=== PATIENT | male | born 1960 | race American Indian/Alaskan Native ===

== ENCOUNTER 2022-02-28 10:56 | Inpatient (IN) | payer OTHER ==
[2022-02-28] MEDS ORDERED: INSULIN REGULAR, HUMAN 100 UNITS/1 ML IV ONE (11:30)
[2022-02-28] MEDS ORDERED: SODIUM CHLORIDE 0.9% 1000 ML 1,000 ML IV ONE ×3 (11:57→18:47)
--- NOTE | 2022-02-28 12:02 | XRay Report ---
CHEST 1 VIEW 02/28/2022 10:48 AM INDICATION / CLINICAL INFORMATION: AMS, HYPOTENSION. COMPARISON: 10/06/19 FINDINGS: SUPPORT DEVICES: None. HEART / MEDIASTINUM: No significant abnormality. LUNGS / PLEURA: No significant pulmonary or pleural abnormality. No pneumothorax. ADDITIONAL FINDINGS: No significant additional findings. IMPRESSION: 1. No acute findings. No change. Signer Name: Eddie Castellanos MD Signed: 02/28/2022 11:57 AM Workstation Name: [id number]
--- NOTE | 2022-02-28 12:02 | Emergency Department Report ---
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 Patient is altered and unable to provide history present illness therefore obtained from nurse. She states that EMS reports that home health aide found patient on the floor and altered. Accu-Chek high in route. Patient also had a BP of 80/60 and room air saturation of 74%. His home health aide at the bedside states the patient has baseline slurred speech but he was more difficult to understand today upon her arrival. Currently patient would not reliably follow commands and just answers yes to all questions. - Related Data Home Medications Medication Instructions Recorded Confirmed Last Taken Aspirin [Aspirin BABY CHEW TAB] 81 mg PO QDAY 10/06/19 10/06/19 Unknown Atorvastatin [Lipitor] 40 mg PO QDAY 10/06/19 10/06/19 Unknown Previous Rx's Medication Instructions Recorded Last Taken Type Valsartan [Diovan] 160 mg PO DAILY #30 tablet 10/08/19 Unknown Rx Insulin NPH/Regular [NovoLIN 70/30] 25 unit SUB-Q BIDDIAB 30 Days #10 10/09/19 Unknown Rx ml metFORMIN [Glucophage] 850 mg PO BIDDIAB #60 tablet 10/09/19 Unknown Rx Allergies Allergy/AdvReac Type Severity Reaction Status Date / Time No Known Allergies Allergy Verified 02/28/22 11:01 ED Review of Systems ROS: Stated complaint: ALTERED MENTAL Other details as noted in HPI Comment: Unobtainable due to pts medical conditions ED Past Medical Hx - Past Medical History Hx Hypertension: Yes Hx Diabetes: Yes Additional medical history: Hyperlipidemia - Surgical History Additional Surgical History: 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 - Social History Smoking Status: Former Smoker - Medications Home Medications: Home Medications Medication Instructions Recorded Confirmed Last Taken Type Aspirin [Aspirin BABY CHEW TAB] 81 mg PO QDAY 10/06/19 10/06/19 Unknown History Atorvastatin [Lipitor] 40 mg PO QDAY 10/06/19 10/06/19 Unknown History Valsartan [Diovan] 160 mg PO DAILY #30 tablet 10/08/19 Unknown Rx Insulin NPH/Regular [NovoLIN 70/30] 25 unit SUB-Q BIDDIAB 30 Days #10 10/09/19 Unknown Rx ml metFORMIN [Glucophage] 850 mg PO BIDDIAB #60 tablet 10/09/19 Unknown Rx ED Physical Exam - General Limitations: Altered Mental Status, Physical Limitation - Other Other exam information: General: No acute distress Head: Atraumatic Eyes: normal appearance ENT: Moist mucous membranes Neck: Normal appearance, no midline tenderness Chest: Clear to auscultation bilaterally CV: Regular rate and rhythm Abdomen: Soft, normal bowel sounds, nontender, nondistended, no rebound or guarding Back: Normal inspection Extremity: Right BKA, left AKA Neuro: Alert oriented x0, no facial asymmetry, slurred speech, equal handgrip Psych: Appropriate behavior Skin: No rash ED Course Vital Signs 02/28/22 02/28/22 02/28/22 10:58 11:10 11:13 Temperature 96.8 F L Pulse Rate 102 H 104 H Respiratory 18 34 H Rate Blood Pressure Blood Pressure 110/70 [Left] O2 Sat by Pulse 97 92 99 Oximetry 02/28/22 02/28/22 02/28/22 11:16 11:30 11:46 Temperature Pulse Rate 106 H 104 H 107 H Respiratory 33 H 31 H 32 H Rate Blood Pressure 98/61 93/62 85/65 Blood Pressure [Left] O2 Sat by Pulse 99 99 Oximetry 02/28/22 02/28/22 02/28/22 12:00 12:16 12:30 Temperature Pulse Rate 111 H 110 H 110 H Respiratory 25 H 22 37 H Rate Blood Pressure 103/82 103/82 87/58 Blood Pressure [Left] O2 Sat by Pulse Oximetry 02/28/22 02/28/22 02/28/22 12:46 13:00 13:16 Temperature Pulse Rate 105 H 107 H 105 H Respiratory 34 H 20 39 H Rate Blood Pressure 87/57 88/60 88/60 Blood Pressure [Left] O2 Sat by Pulse Oximetry 02/28/22 02/28/22 02/28/22 13:30 13:46 14:00 Temperature Pulse Rate 98 H 98 H 96 H Respiratory 35 H 15 28 H Rate Blood Pressure 137/101 106/63 137/101 Blood Pressure [Left] O2 Sat by Pulse Oximetry 02/28/22 02/28/22 02/28/22 14:25 14:38 14:46 Temperature Pulse Rate 96 H Respiratory 28 H Rate Blood Pressure 106/63 112/63 107/43 Blood Pressure [Left] O2 Sat by Pulse 95 Oximetry 02/28/22 02/28/22 02/28/22 15:00 15:16 15:24 Temperature Pulse Rate 97 H 107 H Respiratory 23 16 20 Rate Blood Pressure 107/43 125/58 Blood Pressure [Left] O2 Sat by Pulse 98 Oximetry 02/28/22 02/28/22 02/28/22 15:31 15:42 15:52 Temperature Pulse Rate 105 H Respiratory 17 Rate Blood Pressure 125/58 125/58 Blood Pressure [Left] O2 Sat by Pulse 98 Oximetry 02/28/22 02/28/22 02/28/22 16:01 16:16 16:30 Temperature Pulse Rate 105 H 103 H 101 H Respiratory 34 H 32 H 30 H Rate Blood Pressure 125/58 83/48 87/48 Blood Pressure [Left] O2 Sat by Pulse 95 Oximetry 02/28/22 16:46 Temperature Pulse Rate 100 H Respiratory 16 Rate Blood Pressure 107/56 Blood Pressure [Left] O2 Sat by Pulse 96 Oximetry - Reevaluation(s) Reevaluation #1: 02/28/22 13:54 Code stroke was initiated in CMP is still not received at this time. I Call the lab I was told that they do not have a cmp tube. I informed him that all the blood was drawn at the same time and other test orders are resulting. They will recheck the tubing system. This has called a delay in results Initially requested ABG to be performed room air sats were unable to obtain a reliable pulse oximetry. Respiratory therapist did not feel comfortable performing room air ABG due to inability to confirm oxygen saturation on room air. Results obtained on 100% FiO2 through nonrebreather and shows adequate oxygenation. Metabolic acidosis noted - Consultations Consultation #1: 02/28/22 16:23 case d/w Dr Galvan plate grainer apprentice regarding acute renal failure. He will consult during admission 02/28/22 17:[address] Farley critical care doctor. He will consult during admission. - Central Line Placement Right Femoral Consent Obtained: emergent situation Time Out Performed: Yes Patient Placed on Monitor/Pulse Ox: Yes Prep: mask, gown, gloves Central Line Prep: Chlorhexidine scrub Local Anesthesia Used: Lidocaine 1% Amount of Anesthesia Used (mls): 5 Ultrasound Used for Placement: No Central Line Lumen Inserted: triple Reason for Insertion: Emergency Venous Access Bloods Obtained for Lab: No Central Line Position: good blood return Dressing Applied: Tegaderm Patient Tolerated Procedure: well, no complications Complications: none - Lab Data Result diagrams: 02/28/22 11:54 02/28/22 15:27 Lab Results 02/28/22 02/28/22 02/28/22 Range/Units 11:54 11:54 11:54 WBC 11.4 H (4.5-11.0) K/mm3 RBC 6.23 H (3.65-5.03) M/mm3 Hgb 16.7 H (11.8-15.2) gm/dl Hct 61.3 H* (35.5-45.6) % MCV 98 H (84-94) fl MCH 27 L (28-32) pg MCHC 27 L (32-34) % RDW 18.8 H (13.2-15.2) % Plt Count 334 (140-440) K/mm3 Add Manual Diff Complete Total Counted 100 Seg Neuts % (Manual) 94.0 H (40.0-70.0) % Band Neutrophils % 2.0 % Lymphocytes % (Manual) 1.0 L (13.4-35.0) % Reactive Lymphs % (Man) 0 % Monocytes % (Manual) 3.0 (0.0-7.3) % Eosinophils % (Manual) 0 (0.0-4.3) % Basophils % (Manual) 0 (0.0-1.8) % Metamyelocytes % 0 % Myelocytes % 0 % Promyelocytes % 0 % Blast Cells % 0 % Nucleated RBC % Not Reportable Seg Neutrophils # Man 10.7 H (1.8-7.7) K/mm3 Band Neutrophils # 0.2 K/mm3 Lymphocytes # (Manual) 0.1 L (1.2-5.4) K/mm3 Abs React Lymphs (Man) 0.0 K/mm3 Monocytes # (Manual) 0.3 (0.0-0.8) K/mm3 Eosinophils # (Manual) 0.0 (0.0-0.4) K/mm3 Basophils # (Manual) 0.0 (0.0-0.1) K/mm3 Metamyelocytes # 0.0 K/mm3 Myelocytes # 0.0 K/mm3 Promyelocytes # 0.0 K/mm3 Blast Cells # 0.0 K/mm3 WBC Morphology Not Reportable Hypersegmented Neuts Not Reportable Hyposegmented Neuts Not Reportable Hypogranular Neuts Not Reportable Smudge Cells Not Reportable Toxic Granulation Not Reportable Toxic Vacuolation Not Reportable Dohle Bodies Not Reportable Pelger-Huet Anomaly Not Reportable Perla Rods Not Reportable Platelet Estimate Consistent w auto Clumped Platelets Not Reportable Plt Clumps, EDTA Not Reportable Large Platelets Few Giant Platelets Not Reportable Platelet Satelliting Not Reportable Plt Morphology Comment Not Reportable RBC Morphology Normal Dimorphic RBCs Not Reportable Polychromasia Not Reportable Hypochromasia Not Reportable Poikilocytosis Not Reportable Anisocytosis Not Reportable Microcytosis Not Reportable Macrocytosis Not Reportable Spherocytes Not Reportable Pappenheimer Bodies Not Reportable Sickle Cells Not Reportable Target Cells Not Reportable Tear Drop Cells Not Reportable Ovalocytes Not Reportable Helmet Cells Not Reportable [place] Bodies Not Reportable Pomaria Rings Not Reportable [place] Cells Not Reportable Bite Cells Not Reportable Crenated Cell Not Reportable Elliptocytes Not Reportable Acanthocytes (Spur) Not Reportable Rouleaux Not Reportable Hemoglobin C Crystals Not Reportable Schistocytes Not Reportable Malaria parasites Not Reportable Josef Bodies Not Reportable Hem Pathologist Commnt No PT (12.2-14.9) Sec. INR (0.87-1.13) APTT (24.2-36.6) Sec. ABG pH (7.350-7.450) pH Units ABG pCO2 mm Hg ABG pO2 (80.0-90.0) mm Hg ABG HCO3 (20.0-26.0) mmol/L ABG O2 Saturation (95.0-99.0) % ABG O2 Content (0.0-44) ABG Base Excess (-2.0-3.0) mmol/L ABG Hemoglobin (14.0-18.0) gm/dl ABG Carboxyhemoglobin (0.0-5.0) % ABG Methemoglobin (0.0-1.5) % VBG pH (7.320-7.420) Oxyhemoglobin (95.0-99.0) % FiO2 % Sodium (137-145) mmol/L Potassium (3.6-5.0) mmol/L Chloride (98-107) mmol/L Carbon Dioxide (22-30) mmol/L Anion Gap mmol/L BUN (9-20) mg/dL Creatinine (0.8-1.3) mg/dL Estimated GFR ml/min BUN/Creatinine Ratio % Glucose (75-100) mg/dL Lactic Acid 4.90 H* (0.7-2.0) mmol/L Calcium (8.4-10.2) mg/dL Phosphorus (2.5-4.5) mg/dL Magnesium (1.7-2.3) mg/dL Total Bilirubin (0.1-1.2) mg/dL AST (5-40) units/L ALT (7-56) units/L Alkaline Phosphatase (35-129) units/L Ammonia 66.0 H (25-60) umol/L Total Creatine Kinase (55-170) units/L Troponin T (0.00-0.029) ng/mL Total Protein (6.3-8.2) g/dL Albumin (3.9-5) g/dL Albumin/Globulin Ratio % TSH (0.270-4.200) mlU/mL Free T4 (0.76-1.46) ng/dL Urine Color (Yellow) Urine Turbidity (Clear) Specific [place] (Man) (1.003-1.030) Ur Protein (Man) (Negative) mg/dL Ur Ketones (Man) (Negative) Urine Bilirubin (Man) (Negative) Urine WBC (Auto) (0.0-6.0) /HPF Urine RBC (Auto) (0.0-6.0) /HPF U Epithel Cells (Auto) (0-13.0) /HPF Urine Bacteria (Auto) (Negative) /HPF Urine RBC (Manual) (Negative) Urine Mucus /HPF 02/28/22 02/28/22 02/28/22 Range/Units 11:54 12:18 12:50 WBC (4.5-11.0) K/mm3 RBC (3.65-5.03) M/mm3 Hgb (11.8-15.2) gm/dl Hct (35.5-45.6) % MCV (84-94) fl MCH (28-32) pg MCHC (32-34) % RDW (13.2-15.2) % Plt Count (140-440) K/mm3 Add Manual Diff Total Counted Seg Neuts % (Manual) (40.0-70.0) % Band Neutrophils % % Lymphocytes % (Manual) (13.4-35.0) % Reactive Lymphs % (Man) % Monocytes % (Manual) (0.0-7.3) % Eosinophils % (Manual) (0.0-4.3) % Basophils % (Manual) (0.0-1.8) % Metamyelocytes % % Myelocytes % % Promyelocytes % % Blast Cells % % Nucleated RBC % Seg Neutrophils # Man (1.8-7.7) K/mm3 Band Neutrophils # K/mm3 Lymphocytes # (Manual) (1.2-5.4) K/mm3 Abs React Lymphs (Man) K/mm3 Monocytes # (Manual) (0.0-0.8) K/mm3 Eosinophils # (Manual) (0.0-0.4) K/mm3 Basophils # (Manual) (0.0-0.1) K/mm3 Metamyelocytes # K/mm3 Myelocytes # K/mm3 Promyelocytes # K/mm3 Blast Cells # K/mm3 WBC Morphology Hypersegmented Neuts Hyposegmented Neuts Hypogranular Neuts Smudge Cells Toxic Granulation Toxic Vacuolation Dohle Bodies Pelger-Huet Anomaly Perla Rods Platelet Estimate Clumped Platelets Plt Clumps, EDTA Large Platelets Giant Platelets Platelet Satelliting Plt Morphology Comment RBC Morphology Dimorphic RBCs Polychromasia Hypochromasia Poikilocytosis Anisocytosis Microcytosis Macrocytosis Spherocytes Pappenheimer Bodies Sickle Cells Target Cells Tear Drop Cells Ovalocytes Helmet Cells [place] Bodies Pomaria Rings Jose Cells Bite Cells Crenated Cell Elliptocytes Acanthocytes (Spur) Rouleaux Hemoglobin C Crystals Schistocytes Malaria parasites Josef Bodies Hem Pathologist Commnt PT (12.2-14.9) Sec. INR (0.87-1.13) APTT (24.2-36.6) Sec. ABG pH 7.211 L (7.350-7.450) pH Units ABG pCO2 30.8 mm Hg ABG pO2 267.8 H (80.0-90.0) mm Hg ABG HCO3 12.1 L (20.0-26.0) mmol/L ABG O2 Saturation 99.4 H (95.0-99.0) % ABG O2 Content 22.8 (0.0-44) ABG Base Excess -14.3 L (-2.0-3.0) mmol/L ABG Hemoglobin 16.2 (14.0-18.0) gm/dl ABG Carboxyhemoglobin 1.4 (0.0-5.0) % ABG Methemoglobin 0.7 (0.0-1.5) % VBG pH 7.116 L* (7.320-7.420) Oxyhemoglobin 97.4 (95.0-99.0) % FiO2 100 % Sodium (137-145) mmol/L Potassium (3.6-5.0) mmol/L Chloride (98-107) mmol/L Carbon Dioxide (22-30) mmol/L Anion Gap mmol/L BUN (9-20) mg/dL Creatinine (0.8-1.3) mg/dL Estimated GFR ml/min BUN/Creatinine Ratio % Glucose (75-100) mg/dL Lactic Acid 5.50 H* (0.7-2.0) mmol/L Calcium (8.4-10.2) mg/dL Phosphorus (2.5-4.5) mg/dL Magnesium (1.7-2.3) mg/dL Total Bilirubin (0.1-1.2) mg/dL AST (5-40) units/L ALT (7-56) units/L Alkaline Phosphatase (35-129) units/L Ammonia (25-60) umol/L Total Creatine Kinase (55-170) units/L Troponin T (0.00-0.029) ng/mL Total Protein (6.3-8.2) g/dL Albumin (3.9-5) g/dL Albumin/Globulin Ratio % TSH (0.270-4.200) mlU/mL Free T4 (0.76-1.46) ng/dL Urine Color (Yellow) Urine Turbidity (Clear) Specific [place] (Man) (1.003-1.030) Ur Protein (Man) (Negative) mg/dL Ur Ketones (Man) (Negative) Urine Bilirubin (Man) (Negative) Urine WBC (Auto) (0.0-6.0) /HPF Urine RBC (Auto) (0.0-6.0) /HPF U Epithel Cells (Auto) (0-13.0) /HPF Urine Bacteria (Auto) (Negative) /HPF Urine RBC (Manual) (Negative) Urine Mucus /HPF 02/28/22 02/28/22 02/28/22 Range/Units 13:00 14:53 14:53 WBC (4.5-11.0) K/mm3 RBC (3.65-5.03) M/mm3 Hgb (11.8-15.2) gm/dl Hct (35.5-45.6) % MCV (84-94) fl MCH (28-32) pg MCHC (32-34) % RDW (13.2-15.2) % Plt Count (140-440) K/mm3 Add Manual Diff Total Counted Seg Neuts % (Manual) (40.0-70.0) % Band Neutrophils % % Lymphocytes % (Manual) (13.4-35.0) % Reactive Lymphs % (Man) % Monocytes % (Manual) (0.0-7.3) % Eosinophils % (Manual) (0.0-4.3) % Basophils % (Manual) (0.0-1.8) % Metamyelocytes % % Myelocytes % % Promyelocytes % % Blast Cells % % Nucleated RBC % Seg Neutrophils # Man (1.8-7.7) K/mm3 Band Neutrophils # K/mm3 Lymphocytes # (Manual) (1.2-5.4) K/mm3 Abs React Lymphs (Man) K/mm3 Monocytes # (Manual) (0.0-0.8) K/mm3 Eosinophils # (Manual) (0.0-0.4) K/mm3 Basophils # (Manual) (0.0-0.1) K/mm3 Metamyelocytes # K/mm3 Myelocytes # K/mm3 Promyelocytes # K/mm3 Blast Cells # K/mm3 WBC Morphology Hypersegmented Neuts Hyposegmented Neuts Hypogranular Neuts Smudge Cells Toxic Granulation Toxic Vacuolation Dohle Bodies Pelger-Huet Anomaly Perla Rods Platelet Estimate Clumped Platelets Plt Clumps, EDTA Large Platelets Giant Platelets Platelet Satelliting Plt Morphology Comment RBC Morphology Dimorphic RBCs Polychromasia Hypochromasia Poikilocytosis Anisocytosis Microcytosis Macrocytosis Spherocytes Pappenheimer Bodies Sickle Cells Target Cells Tear Drop Cells Ovalocytes Helmet Cells [place] Bodies Pomaria Rings Jose Cells Bite Cells Crenated Cell Elliptocytes Acanthocytes (Spur) Rouleaux Hemoglobin C Crystals Schistocytes Malaria parasites Josef Bodies Hem Pathologist Commnt PT 15.9 H (12.2-14.9) Sec. INR 1.14 H (0.87-1.13) APTT 24.7 (24.2-36.6) Sec. ABG pH (7.350-7.450) pH Units ABG pCO2 mm Hg ABG pO2 (80.0-90.0) mm Hg ABG HCO3 (20.0-26.0) mmol/L ABG O2 Saturation (95.0-99.0) % ABG O2 Content (0.0-44) ABG Base Excess (-2.0-3.0) mmol/L ABG Hemoglobin (14.0-18.0) gm/dl ABG Carboxyhemoglobin (0.0-5.0) % ABG Methemoglobin (0.0-1.5) % VBG pH (7.320-7.420) Oxyhemoglobin (95.0-99.0) % FiO2 % Sodium (137-145) mmol/L Potassium (3.6-5.0) mmol/L Chloride (98-107) mmol/L Carbon Dioxide (22-30) mmol/L Anion Gap mmol/L BUN (9-20) mg/dL Creatinine (0.8-1.3) mg/dL Estimated GFR ml/min BUN/Creatinine Ratio % Glucose (75-100) mg/dL Lactic Acid 3.60 H* (0.7-2.0) mmol/L Calcium (8.4-10.2) mg/dL Phosphorus (2.5-4.5) mg/dL Magnesium (1.7-2.3) mg/dL Total Bilirubin (0.1-1.2) mg/dL AST (5-40) units/L ALT (7-56) units/L Alkaline Phosphatase (35-129) units/L Ammonia (25-60) umol/L Total Creatine Kinase (55-170) units/L Troponin T (0.00-0.029) ng/mL Total Protein (6.3-8.2) g/dL Albumin (3.9-5) g/dL Albumin/Globulin Ratio % TSH 1.170 (0.270-4.200) mlU/mL Free T4 1.32 (0.76-1.46) ng/dL Urine Color (Yellow) Urine Turbidity (Clear) Specific [place] (Man) (1.003-1.030) Ur Protein (Man) (Negative) mg/dL Ur Ketones (Man) (Negative) Urine Bilirubin (Man) (Negative) Urine WBC (Auto) (0.0-6.0) /HPF Urine RBC (Auto) (0.0-6.0) /HPF U Epithel Cells (Auto) (0-13.0) /HPF Urine Bacteria (Auto) (Negative) /HPF Urine RBC (Manual) (Negative) Urine Mucus /HPF 02/28/22 02/28/22 02/28/22 Range/Units 15:27 15:27 Unknown WBC (4.5-11.0) K/mm3 RBC (3.65-5.03) M/mm3 Hgb (11.8-15.2) gm/dl Hct (35.5-45.6) % MCV (84-94) fl MCH (28-32) pg MCHC (32-34) % RDW (13.2-15.2) % Plt Count (140-440) K/mm3 Add Manual Diff Total Counted Seg Neuts % (Manual) (40.0-70.0) % Band Neutrophils % % Lymphocytes % (Manual) (13.4-35.0) % Reactive Lymphs % (Man) % Monocytes % (Manual) (0.0-7.3) % Eosinophils % (Manual) (0.0-4.3) % Basophils % (Manual) (0.0-1.8) % Metamyelocytes % % Myelocytes % % Promyelocytes % % Blast Cells % % Nucleated RBC % Seg Neutrophils # Man (1.8-7.7) K/mm3 Band Neutrophils # K/mm3 Lymphocytes # (Manual) (1.2-5.4) K/mm3 Abs React Lymphs (Man) K/mm3 Monocytes # (Manual) (0.0-0.8) K/mm3 Eosinophils # (Manual) (0.0-0.4) K/mm3 Basophils # (Manual) (0.0-0.1) K/mm3 Metamyelocytes # K/mm3 Myelocytes # K/mm3 Promyelocytes # K/mm3 Blast Cells # K/mm3 WBC Morphology Hypersegmented Neuts Hyposegmented Neuts Hypogranular Neuts Smudge Cells Toxic Granulation Toxic Vacuolation Dohle Bodies Pelger-Huet Anomaly Perla Rods Platelet Estimate Clumped Platelets Plt Clumps, EDTA Large Platelets Giant Platelets Platelet Satelliting Plt Morphology Comment RBC Morphology Dimorphic RBCs Polychromasia Hypochromasia Poikilocytosis Anisocytosis Microcytosis Macrocytosis Spherocytes Pappenheimer Bodies Sickle Cells Target Cells Tear Drop Cells Ovalocytes Helmet Cells [place] Bodies Pomaria Rings Jose Cells Bite Cells Crenated Cell Elliptocytes Acanthocytes (Spur) Rouleaux Hemoglobin C Crystals Schistocytes Malaria parasites Josef Bodies Hem Pathologist Commnt PT (12.2-14.9) Sec. INR (0.87-1.13) APTT (24.2-36.6) Sec. ABG pH (7.350-7.450) pH Units ABG pCO2 mm Hg ABG pO2 (80.0-90.0) mm Hg ABG HCO3 (20.0-26.0) mmol/L ABG O2 Saturation (95.0-99.0) % ABG O2 Content (0.0-44) ABG Base Excess (-2.0-3.0) mmol/L ABG Hemoglobin (14.0-18.0) gm/dl ABG Carboxyhemoglobin (0.0-5.0) % ABG Methemoglobin (0.0-1.5) % VBG pH (7.320-7.420) Oxyhemoglobin (95.0-99.0) % FiO2 % Sodium 151 H (137-145) mmol/L Potassium 4.1 (3.6-5.0) mmol/L Chloride 101.9 (98-107) mmol/L Carbon Dioxide 15 L (22-30) mmol/L Anion Gap 38 mmol/L BUN 82 H (9-20) mg/dL Creatinine 5.3 H (0.8-1.3) mg/dL Estimated GFR 13 ml/min BUN/Creatinine Ratio 15 % Glucose 1447 H* (75-100) mg/dL Lactic Acid (0.7-2.0) mmol/L Calcium 9.7 (8.4-10.2) mg/dL Phosphorus 4.50 (2.5-4.5) mg/dL Magnesium 3.80 H (1.7-2.3) mg/dL Total Bilirubin 0.20 (0.1-1.2) mg/dL AST 47 H (5-40) units/L ALT 22 (7-56) units/L Alkaline Phosphatase 173 H (35-129) units/L Ammonia (25-60) umol/L Total Creatine Kinase 4409 H (55-170) units/L Troponin T 0.014 (0.00-0.029) ng/mL Total Protein 6.3 (6.3-8.2) g/dL Albumin 3.8 L (3.9-5) g/dL Albumin/Globulin Ratio 1.5 % TSH (0.270-4.200) mlU/mL Free T4 (0.76-1.46) ng/dL Urine Color Straw (Yellow) Urine Turbidity Slightly cloudy (Clear) Specific [place] (Man) 1.010 (1.003-1.030) Ur Protein (Man) 2+ (Negative) mg/dL Ur Ketones (Man) 5 (Negative) Urine Bilirubin (Man) Negative (Negative) Urine WBC (Auto) 9.0 H (0.0-6.0) /HPF Urine RBC (Auto) 2.0 (0.0-6.0) /HPF U Epithel Cells (Auto) 12.0 (0-13.0) /HPF Urine Bacteria (Auto) 1+ (Negative) /HPF Urine RBC (Manual) 3+ (Negative) Urine Mucus Few /HPF - EKG Data -: EKG Interpreted by Ut EKG shows normal: sinus rhythm, ST-T waves (No STEMI) Rate: tachycardia (104) - Radiology Data Radiology results: report reviewed CHEST 1 VIEW 02/28/2022 10:48 AM INDICATION / CLINICAL INFORMATION: AMS, HYPOTENSION. COMPARISON: 10/06/19 FINDINGS: SUPPORT DEVICES: None. HEART / MEDIASTINUM: No significant abnormality. LUNGS / PLEURA: No significant pulmonary or pleural abnormality. No pneumothorax. ADDITIONAL FINDINGS: No significant additional findings. IMPRESSION: 1. No acute findings. No change. CT cervical spine wo con, CT head/brain wo con INDICATION / CLINICAL INFORMATION: 61 years Male; AMS, FOUND DOWN ON GROUND. TECHNIQUE: Routine CT head without contrast. All CT scans at this location are performed using CT dose reduction for ALARA by means of automated exposure control. COMPARISON: None. FINDINGS: BRAIN / INTRACRANIAL CONTENTS: No acute hemorrhage, mass effect, midline shift, hydrocephalus, or acute, large territorial infarct. Mild cerebral and cerebellar atrophy. There are moderate areas of decreased attenuation in the white matter of the cerebral hemispheres. These are nonspecific findings and may be related to microangiopathy (hypertension, diabetes, atherosclerosis), given the patient's age. It might be difficult to evaluate for small areas of ischemia without diffusion imaging by MRI. 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 Subcentimeter chronic lacunar infarcts are also noted in the right anterior basal ganglia and left carroll. CRANIOCERVICAL JUNCTION: No significant abnormality. ORBITS: No significant abnormality of visualized orbits. SINUSES / MASTOIDS: Visualized paranasal sinuses and mastoid air cells are essentially clear. ADDITIONAL FINDINGS: Atherosclerotic disease is seen in the anterior and posterior circulation. IMPRESSION: 1. No acute intracranial process identified. Chronic findings as described above. CT CERVICAL SPINE WITHOUT CONTRAST INDICATION: AMS, FOUND DOWN ON GROUND. TECHNIQUE: Axial imaging performed through the cervical spine without the use of contrast. Sagittal and coronal reconstructed images were also reviewed. All CT scans at this location are performed using CT dose reduction for ALARA by means of automated exposure control. COMPARISON: None FINDINGS: Alignment: Spinal alignment is normal. Bones: There is no acute osseous abnormality. 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 C5-6 and C6-7 are the most affected levels. No significant facet arthropathy. No bone lesion. Soft tissues: No acute or significant incidental soft tissue abnormality. IMPRESSION: No acute abnormality. Mild to moderate cervical spondylosis as described. - Medical Decision Making 61-year-old male with past medical history of diabetes presents to the hospital with hyperglycemia alteration in mental status. There was significant delay in obtaining CMP results with ABG revealed significant hyperglycemia with anion gap acidosis. Patient treated for DKA and sepsis protocol. IV Rocephin provided for UTI. Lactic acidosis improving with hydration. Patient has very difficult IV access despite multiple attempts which also contributed to blood draw delays. Central line placed due to intermittent hypotension and need for multiple lines for ministration of meds. Patient remained responsive but confused during ED stay. Hospitalist to admit. Case discussed with nephrology regarding acute renal sufficiency likely secondary to renal sufficiency and rhabdomyolysis. Imaging test including CT head, cervical spine, and x-ray chest did not show acute findings. Case discussed with critical care doctor since patient requires ICU admission. Critical Care Time: Yes Critical care time in (mins) excluding proc time.: 75 Critical care attestation.: If time is entered above; I have spent that time in minutes in the direct care of this critically ill patient, excluding procedure time. Critical Care Time: 75 Minutes of critical care time excluding procedures were used in the care of the patient. I came immediately to the bedside upon patient's arrival. I obtained history from EMS at the bedside. I discussed treatment plan with the nursing team members. I reviewed electronic record. I spoke with home health aid at bedside . Patient required multiple interventions and reassessments. Spoke with hospitalist and consultants for collaborative care ED Disposition Clinical Impression: DKA (diabetic ketoacidosis), Acute renal failure (ARF), Altered mental status, Dehydration, UTI (urinary tract infection), Rhabdomyolysis, Sepsis Disposition: ADMITTED INPATIENT Is pt being admited?: Yes Condition: Stable Instructions: Diabetic Ketoacidosis (ED) Time of Disposition: 17:07
[2022-02-28 12:32] LABS: Hemoglobin 16.7 gm/dl (11.8-15.2); Red Blood Count 6.23 M/mm3 (3.65-5.03)
[2022-02-28 12:33] LABS: Hematocrit 61.3 % (35.5-45.6); Mean Corpuscular HGB Conc 27 % (32-34); Mean Corpuscular Volume 98 fl (84-94); Platelet Count 334 K/mm3 (140-440); Red Cell Distribution Width 18.8 % (13.2-15.2)
[2022-02-28] MEDS ORDERED: SODIUM CHLORIDE 0.9% 1000 ML IV SOLN IV ONE (12:42)
[2022-02-28 12:48] LABS: ABG Base Excess -14.3 mmol/L (-2.0-3.0); ABG HCO3 12.1 mmol/L (20.0-26.0); ABG Methemoglobin 0.7 % (0.0-1.5); ABG Oxygen Saturation 99.4 % (95.0-99.0); ABG PCO2 30.8 mm Hg; ABG PH 7.211 pH Units (7.350-7.450)
[2022-02-28 13:10] LABS: Band Neutrophils # (Manual) 0.2 K/mm3; Basophils % (Manual) 0 % (0.0-1.8); Eosinophils % (Manual) 0 % (0.0-4.3); Large Platelets Few; Platelet Estimate Consistent w Auto; RBC Morphology Normal; Total Cells Counted 100
[2022-02-28 13:19] LABS: ABG PO2 267.8 mm Hg (80.0-90.0)
[2022-02-28 13:34] LABS: INR 1.14 (0.87-1.13)
[2022-02-28 13:35] LABS: Partial Thromboplastin Time 24.7 Sec. (24.2-36.6)
[2022-02-28 14:32] LABS: Bacteria,Urine 1+ /HPF (Negative); Mucus,Urine FEW /HPF
[2022-02-28 14:37] LABS: Color,Urine Straw (Yellow)
--- NOTE | 2022-02-28 14:48 | Cat Scan Report ---
CT cervical spine wo con, CT head/brain wo con INDICATION / CLINICAL INFORMATION: 61 years Male; AMS, FOUND DOWN ON GROUND. TECHNIQUE: Routine CT head without contrast. All CT scans at this location are performed using CT dos e reduction for ALARA by means of automated exposure control. COMPARISON: None. FINDINGS: BRAIN / INTRACRANIAL CONTENTS: No acute hemorrhage, mass effect, midline shift, hydrocephalus, or acu te, large territorial infarct. Mild cerebral and cerebellar atrophy. There are moderate areas of decreased attenuation in the white matter of the cerebral hemispheres. Th chandan are nonspecific findings and may be related to microangiopathy (hypertension, diabetes, atheroscl erosis), given the patient's age. It might be difficult to evaluate for small areas of ischemia witho ut diffusion imaging by MRI. 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 Subcentimeter chronic lacunar infarcts are also noted in the right anterior basal ganglia and left carroll. CRANIOCERVICAL JUNCTION: No significant abnormality. ORBITS: No significant abnormality of visualized orbits. SINUSES / MASTOIDS: Visualized paranasal sinuses and mastoid air cells are essentially clear. ADDITIONAL FINDINGS: Atherosclerotic disease is seen in the anterior and posterior circulation. IMPRESSION: 1. No acute intracranial process identified. Chronic findings as described above. CT CERVICAL SPINE WITHOUT CONTRAST INDICATION: AMS, FOUND DOWN ON GROUND. TECHNIQUE: Axial imaging performed through the cervical spine without the use of contrast. Sagittal and coronal reconstructed images were also reviewed. All CT scans at this location are performed us ing CT dose reduction for ALARA by means of automated exposure control. COMPARISON: None FINDINGS: Alignment: Spinal alignment is normal. Bones: There is no acute osseous abnormality. 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 C5-6 and C6-7 are the most affected levels. No significant facet arthropathy. No bone lesion. Soft tissues: No acute or significant incidental soft tissue abnormality. IMPRESSION: No acute abnormality. Mild to moderate cervical spondylosis as described. Signer Name: Carlos Vivar Jr, MD Signed: 02/28/2022 2:44 PM Workstation Name: [id number]
[2022-02-28] MEDS ORDERED: cefTRIAXone/NS 1 GM/50 ML 1 GM/50 ML BAG IV ONE (15:21)
[2022-02-28 15:31] LABS: Free T4 (Free Thyroxine) 1.32 ng/dL (0.76-1.46)
[2022-02-28 16:01] LABS: Albumin 3.8 g/dL (3.9-5); Calcium 9.7 mg/dL (8.4-10.2)
[2022-02-28] MEDS: INSULIN REGULAR, HUMAN 100 UNITS in SODIUM CHLORIDE 0.9% 99 ML IV SCH (16:56)
[2022-02-28] MEDS ORDERED: IBUPROFEN 600 MG TAB PO PRN (17:08)
[2022-02-28] MEDS ORDERED: MORPHINE 2 MG/1 ML INJ IV PRN (17:08)
[2022-02-28 18:44] LABS: Calcium 9.4 mg/dL (8.4-10.2)
[2022-02-28] MEDS ORDERED: ONDANSETRON 4 MG/2 ML INJ IV PRN (21:22)
[2022-02-28] MEDS ORDERED: oxyCODONE /ACETAMINOPHEN 5-325MG TAB PO PRN (21:22)
[2022-02-28] MEDS ORDERED: METOCLOPRAMIDE 10 MG/2 ML INJ IV PRN (21:22)
[2022-02-28] MEDS ORDERED: NON-FORMULARY EACH (Losartan [Cozaar] 100 MG Tablet) PO SCH (21:30)
[2022-02-28] MEDS ORDERED: D5W/0.9% NACL 1,000 ML IV SCH (22:00)
[2022-02-28] MEDS: FAMOTIDINE 20 MG/2 ML INJ IV SCH (23:40)
[2022-02-28] MEDS: VALSARTAN 160MG TAB PO SCH (23:40)
[2022-02-28] MEDS: amLODIPine 5 MG TAB PO SCH (23:40)
[2022-02-28 23:43] LABS: Calcium 8.9 mg/dL (8.4-10.2)
[2022-02-28] MEDS ORDERED: NACL 0.45%/KCL 20 MEQ 20 MEQ/1,000 ML BAG IV SCH (23:45)
[2022-02-28] MEDS ORDERED: D5W/0.45% NACL/KCL 20 MEQ 20 MEQ/1,000 ML BAG IV SCH (23:45)
[2022-03-01 03:29] LABS: Hematocrit 47.1 % (35.5-45.6); Hemoglobin 14.8 gm/dl (11.8-15.2); Mean Corpuscular HGB Conc 32 % (32-34); Mean Corpuscular Volume 84 fl (84-94); Platelet Count 231 K/mm3 (140-440); Red Blood Count 5.58 M/mm3 (3.65-5.03); Red Cell Distribution Width 17.7 % (13.2-15.2)
[2022-03-01 03:41] LABS: Calcium 8.3 mg/dL (8.4-10.2)
[2022-03-01] MEDS ORDERED: POTASSIUM CHLORIDE 20 MEQ in DEXTROSE 5% IN WATER 1,000 ML IV SCH (04:15)
[2022-03-01] MEDS: D5W/0.45% NACL/KCL 20 MEQ 20 MEQ/1,000 ML BAG IV SCH ×2 (05:27→14:00)
[2022-03-01] MEDS: INSULIN REGULAR, HUMAN 100 UNITS in SODIUM CHLORIDE 0.9% 99 ML IV SCH (05:27)
--- NOTE | 2022-03-01 05:45 | History and Physical Report ---
History of Present Illness Date of examination: 02/28/22 Date of admission: 02/28/22 17:08 Chief complaint: Altered sensorium since a.m. History of present illness: 61-year-old -[place] male with history of Beatties, hypertension, hyperlipidemia and s/p bilateral BKA brought in by EMS for altered mental status. At the time of arrival his blood pressure was 80/60 and oxygen saturation was 74%. As per his home health aide at bedside--patient had baseline slurred speech but was more difficult to understand today. Would not follow commands. Severely altered sensorium. His baseline is alert and oriented. No fever or chills. No vomiting. 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 - Social History --Smoking Status: Former Smoker - Family history --Htn - Medications --Home Medications: Home Medications Medication Instructions Recorded Confirmed Last Taken Type Aspirin [Aspirin BABY CHEW TAB] 81 mg PO QDAY 10/06/19 10/06/19 Unknown History Atorvastatin [Lipitor] 40 mg PO QDAY 10/06/19 10/06/19 Unknown History Valsartan [Diovan] 160 mg PO DAILY #30 tablet 10/08/19 Unknown Rx Insulin NPH/Regular [NovoLIN 70/30] 25 unit SUB-Q BIDDIAB 30 Days #10 10/09/19 Unknown Rx ml metFORMIN [Glucophage] 850 mg PO BIDDIAB #60 tablet 10/09/19 Unknown Rx Review of Systems ROS: Constitutional altered sensorium HEENT no sore throat no post nasal drip no diplopia Neck no neck stiffness no lymph gland enlargement Chest and lungs no shortness of breath cough or wheezing CVS no chest pain no diaphoresis no palpitations GI no nausea no vomiting no diarrhea Genitourinary system no dysuria no flank pain Musculoskeletal system no muscle pains no joint pains [employer] altered sensorium Skin no rash no itching Psychiatric no depression no homicidal or suicidal tendencies Hematologic no lymphedema or bruising Endocrine no polydipsia no polyuria no cold intolerance no heat intolerance Medications and Allergies Allergies Allergy/AdvReac Type Severity Reaction Status Date / Time No Known Allergies Allergy Verified 02/28/22 11:01 Home Medications Medication Instructions Recorded Confirmed Last Taken Type Aspirin [Aspirin BABY CHEW TAB] 81 mg PO QDAY 10/06/19 02/28/22 Unknown History Atorvastatin [Lipitor] 40 mg PO QDAY 10/06/19 02/28/22 Unknown History Valsartan [Diovan] 160 mg PO DAILY #30 tablet 10/08/19 02/28/22 Unknown Rx metFORMIN [Glucophage] 850 mg PO BIDDIAB #60 tablet 10/09/19 02/28/22 Unknown Rx Insulin NPH Hum/Reg Insulin Hm 28 units SQ ACHS 02/28/22 02/28/22 Unknown Histor y Insulin NPH/Regular [NovoLIN 70/30] 25 unit SUB-Q QHS 02/28/22 02/28/22 Unknown History Losartan [Cozaar] 100 mg PO QDAY 02/28/22 02/28/22 Unknown History Mirtazapine [Remeron] 15 mg PO DAILY 02/28/22 02/28/22 Unknown History Trazodone HCl [traZODone] 300 mg PO QHS 02/28/22 02/28/22 Unknown History amLODIPine [Norvasc] 2.5 mg PO DAILY 02/28/22 02/28/22 Unknown History busPIRone [Buspar] 10 mg PO DAILY 02/28/22 02/28/22 Unknown History Active Meds: Active Medications Acetaminophen (Acetaminophen 325 Mg Tab) 650 mg PO Q4H PRN PRN Reason: Pain MILD(1-3)/Fever >100.5/SHIN Amlodipine Besylate (Amlodipine 5 Mg Tab) 2.5 mg PO DAILY JOB Last Admin: 02/28/22 23:40 Dose: Not Given Dextrose (Dextrose 50% In Water (25gm) 50 Ml Syringe) 0 ml IV Q30MIN PRN; Protocol PRN Reason: Hypoglycemia Famotidine (Famotidine 20 Mg/2 Ml Inj) 20 mg IV QAM JOB Last Admin: 02/28/22 23:40 Dose: Not Given Insulin Human Regular 100 (units/ Sodium Chloride) 100 mls @ 1 mls/hr IV TITR JOB; Protocol Last Admin: 03/01/22 05:27 Dose: 4 units/hr, 4 mls/hr Potassium Chloride/Dextrose/Sod Cl (D5w/0.45% Nacl/Kcl 20 Meq) 20 meq in 1,000 mls @ 125 mls/hr IV DIRECT JOB Last Admin: 03/01/22 05:27 Dose: 125 mls/hr Ibuprofen (Ibuprofen 600 Mg Tab) 600 mg PO Q6H PRN PRN Reason: Pain, Mild (1-3) Metoclopramide HCl (Metoclopramide 10 Mg/2 Ml Inj) 5 mg IV Q6H PRN PRN Reason: Nausea And Vomiting Mirtazapine (Mirtazapine 15 Mg Tab) 15 mg PO DAILY [facility] Morphine Sulfate (Morphine 2 Mg/1 Ml Inj) 2 mg IV Q4H PRN PRN Reason: Pain, Moderate (4-6) Ondansetron HCl (Ondansetron 4 Mg/2 Ml Inj) 4 mg IV Q3H PRN PRN Reason: Nausea And Vomiting Oxycodone/Acetaminophen (Oxycodone /Acetaminophen 5-325mg Tab) 1 tab PO Q6H PRN PRN Reason: Pain, Moderate (4-6) Sodium Chloride (Sodium Chloride 0.9% 10 Ml Flush Syringe) 10 ml IV PRN PRN PRN Reason: LINE FLUSH Sodium Chloride (Sodium Chloride 0.9% 10 Ml Flush Syringe) 10 ml IV BID [facility] Last Admin: 03/01/22 05:28 Dose: Not Given Valsartan (Valsartan 160mg Tab) 160 mg PO DAILY [facility] Last Admin: 02/28/22 23:40 Dose: Not Given Exam - Constitutional Vitals: Temp Pulse Resp BP Pulse Ox 96.8 F L 104 H 34 H 92/64 96 02/28/22 10:58 03/01/22 02:20 03/01/22 02:20 03/01/22 02:20 03/01/22 02:20 General appearance: Present: mild distress, cachectic, disheveled - EENT Eyes: Present: PERRL ENT: hearing intact, clear oral mucosa - Neck Neck: Present: supple, normal ROM - Respiratory Respiratory effort: normal Respiratory: bilateral: CTA - Cardiovascular Heart rate: 98 Rhythm: regular Heart Sounds: Present: S1 & S2. Absent: rub, click - Extremities Extremities: pulses symmetrical, No edema, abnormal (Gerson BKA) Extremity abnormal: other (Gerson BKA) Peripheral Pulses: within normal limits - Abdominal General gastrointestinal: Present: soft, non-tender, non-distended, normal bowel sounds Male genitourinary: Present: normal - Integumentary Integumentary: Present: clear, warm, dry - Musculoskeletal Musculoskeletal: gait normal, strength equal bilaterally - Psychiatric Psychiatric: appropriate mood/affect, intact judgment & insight - Neurologic Neurologic: CNII-XII intact, moves all extremities - Allied Health Allied health notes reviewed: nursing, case management HEART Score - HEART Score Troponin: Troponin T 0.014 ng/mL (0.00-0.029) 02/28/22 15:27 Results - Labs CBC & Chem 7: 03/01/22 03:13 03/01/22 03:13 Labs: Laboratory Last Values WBC 12.6 K/mm3 (4.5-11.0) H 03/01/22 03:13 RBC 5.58 M/mm3 (3.65-5.03) H 03/01/22 03:13 Hgb 14.8 gm/dl (11.8-15.2) 03/01/22 03:13 Hct 47.1 % (35.5-45.6) H D 03/01/22 03:13 MCV 84 fl (84-94) 03/01/22 03:13 MCH 27 pg (28-32) L 03/01/22 03:13 MCHC 32 % (32-34) 03/01/22 03:13 RDW 17.7 % (13.2-15.2) H 03/01/22 03:13 Plt Count 231 K/mm3 (140-440) 03/01/22 03:13 Add Manual Diff Complete 02/28/22 11:54 Total Counted 100 02/28/22 11:54 Seg Neuts % (Manual) 94.0 % (40.0-70.0) H 02/28/22 11:54 Band Neutrophils % 2.0 % 02/28/22 11:54 Lymphocytes % (Manual) 1.0 % (13.4-35.0) L 02/28/22 11:54 Reactive Lymphs % (Man) 0 % 02/28/22 11:54 Monocytes % (Manual) 3.0 % (0.0-7.3) 02/28/22 11:54 Eosinophils % (Manual) 0 % (0.0-4.3) 02/28/22 11:54 Basophils % (Manual) 0 % (0.0-1.8) 02/28/22 11:54 Metamyelocytes % 0 % 02/28/22 11:54 Myelocytes % 0 % 02/28/22 11:54 Promyelocytes % 0 % 02/28/22 11:54 Blast Cells % 0 % 02/28/22 11:54 Nucleated RBC % Not Reportable 02/28/22 11:54 Seg Neutrophils # Man 10.7 K/mm3 (1.8-7.7) H 02/28/22 11:54 Band Neutrophils # 0.2 K/mm3 02/28/22 11:54 Lymphocytes # (Manual) 0.1 K/mm3 (1.2-5.4) L 02/28/22 11:54 Abs React Lymphs (Man) 0.0 K/mm3 02/28/22 11:54 Monocytes # (Manual) 0.3 K/mm3 (0.0-0.8) 02/28/22 11:54 Eosinophils # (Manual) 0.0 K/mm3 (0.0-0.4) 02/28/22 11:54 Basophils # (Manual) 0.0 K/mm3 (0.0-0.1) 02/28/22 11:54 Metamyelocytes # 0.0 K/mm3 02/28/22 11:54 Myelocytes # 0.0 K/mm3 02/28/22 11:54 Promyelocytes # 0.0 K/mm3 02/28/22 11:54 Blast Cells # 0.0 K/mm3 02/28/22 11:54 WBC Morphology Not Reportable 02/28/22 11:54 Hypersegmented Neuts Not Reportable 02/28/22 11:54 Hyposegmented Neuts Not Reportable 02/28/22 11:54 Hypogranular Neuts Not Reportable 02/28/22 11:54 Smudge Cells Not Reportable 02/28/22 11:54 Toxic Granulation Not Reportable 02/28/22 11:54 Toxic Vacuolation Not Reportable 02/28/22 11:54 Dohle Bodies Not Reportable 02/28/22 11:54 Pelger-Huet Anomaly Not Reportable 02/28/22 11:54 Perla Rods Not Reportable 02/28/22 11:54 Platelet Estimate Consistent w auto 02/28/22 11:54 Clumped Platelets Not Reportable 02/28/22 11:54 Plt Clumps, EDTA Not Reportable 02/28/22 11:54 Large Platelets Few 02/28/22 11:54 Giant Platelets Not Reportable 02/28/22 11:54 Platelet Satelliting Not Reportable 02/28/22 11:54 Plt Morphology Comment Not Reportable 02/28/22 11:54 RBC Morphology Normal 02/28/22 11:54 Dimorphic RBCs Not Reportable 02/28/22 11:54 Polychromasia Not Reportable 02/28/22 11:54 Hypochromasia Not Reportable 02/28/22 11:54 Poikilocytosis Not Reportable 02/28/22 11:54 Anisocytosis Not Reportable 02/28/22 11:54 Microcytosis Not Reportable 02/28/22 11:54 Macrocytosis Not Reportable 02/28/22 11:54 Spherocytes Not Reportable 02/28/22 11:54 Pappenheimer Bodies Not Reportable 02/28/22 11:54 Sickle Cells Not Reportable 02/28/22 11:54 Target Cells Not Reportable 02/28/22 11:54 Tear Drop Cells Not Reportable 02/28/22 11:54 Ovalocytes Not Reportable 02/28/22 11:54 Helmet Cells Not Reportable 02/28/22 11:54 [place] Bodies Not Reportable 02/28/22 11:54 [place] Rings Not Reportable 02/28/22 11:54 Jose Cells Not Reportable 02/28/22 11:54 Bite Cells Not Reportable 02/28/22 11:54 Crenated Cell Not Reportable 02/28/22 11:54 Elliptocytes Not Reportable 02/28/22 11:54 Acanthocytes (Spur) Not Reportable 02/28/22 11:54 Rouleaux Not Reportable 02/28/22 11:54 Hemoglobin C Crystals Not Reportable 02/28/22 11:54 Schistocytes Not Reportable 02/28/22 11:54 Malaria parasites Not Reportable 02/28/22 11:54 Josef Bodies Not Reportable 02/28/22 11:54 Hem Pathologist Commnt No 02/28/22 11:54 PT 15.9 Sec. (12.2-14.9) H 02/28/22 13:00 INR 1.14 (0.87-1.13) H 02/28/22 13:00 APTT 24.7 Sec. (24.2-36.6) 02/28/22 13:00 ABG pH 7.211 pH Units (7.350-7.450) L 02/28/22 12:18 ABG pCO2 30.8 mm Hg 02/28/22 12:18 ABG pO2 267.8 mm Hg (80.0-90.0) H 02/28/22 12:18 ABG HCO3 12.1 mmol/L (20.0-26.0) L 02/28/22 12:18 ABG O2 Saturation 99.4 % (95.0-99.0) H 02/28/22 12:18 ABG O2 Content 22.8 (0.0-44) 02/28/22 12:18 ABG Base Excess -14.3 mmol/L (-2.0-3.0) L 02/28/22 12:18 ABG Hemoglobin 16.2 gm/dl (14.0-18.0) 02/28/22 12:18 ABG Carboxyhemoglobin 1.4 % (0.0-5.0) 02/28/22 12:18 ABG Methemoglobin 0.7 % (0.0-1.5) 02/28/22 12:18 VBG pH 7.116 (7.320-7.420) L* 02/28/22 11:54 Oxyhemoglobin 97.4 % (95.0-99.0) 02/28/22 12:18 FiO2 100 % 02/28/22 12:18 Sodium 158 mmol/L (137-145) H 03/01/22 03:13 Potassium 4.1 mmol/L (3.6-5.0) 03/01/22 03:13 Chloride 121.6 mmol/L (98-107) H 03/01/22 03:13 Carbon Dioxide 19 mmol/L (22-30) L 03/01/22 03:13 Anion Gap 22 mmol/L 03/01/22 03:13 BUN 80 mg/dL (9-20) H 03/01/22 03:13 Creatinine 4.9 mg/dL (0.8-1.3) H 03/01/22 03:13 Estimated GFR 15 ml/min 03/01/22 03:13 BUN/Creatinine Ratio 16 % 03/01/22 03:13 Glucose 334 mg/dL (75-100) H 03/01/22 03:13 POC Glucose 301 mg/dL (70-105) H 03/01/22 02:57 Lactic Acid 4.70 mmol/L (0.7-2.0) H* 02/28/22 23:08 Calcium 8.3 mg/dL (8.4-10.2) L 03/01/22 03:13 Phosphorus 2.80 mg/dL (2.5-4.5) D 02/28/22 23:08 Magnesium 3.20 mg/dL (1.7-2.3) H 02/28/22 23:08 Total Bilirubin 0.20 mg/dL (0.1-1.2) 02/28/22 15:27 AST 47 units/L (5-40) H 02/28/22 15:27 ALT 22 units/L (7-56) 02/28/22 15:27 Alkaline Phosphatase 173 units/L (35-129) H 02/28/22 15:27 Ammonia 66.0 umol/L (25-60) H 02/28/22 11:54 Total Creatine Kinase 4409 units/L (55-170) H 02/28/22 15:27 Troponin T 0.014 ng/mL (0.00-0.029) 02/28/22 15:27 Total Protein 6.3 g/dL (6.3-8.2) 02/28/22 15:27 Albumin 3.8 g/dL (3.9-5) L 02/28/22 15:27 Albumin/Globulin Ratio 1.5 % 02/28/22 15:27 TSH 1.170 mlU/mL (0.270-4.200) 02/28/22 14:53 Free T4 1.32 ng/dL (0.76-1.46) 02/28/22 14:53 Urine Color Straw (Yellow) 02/28/22 Unknown Urine Turbidity Slightly cloudy (Clear) 02/28/22 Unknown Specific Solomon (Man) 1.010 (1.003-1.030) 02/28/22 Unknown Ur Protein (Man) 2+ mg/dL (Negative) 02/28/22 Unknown Ur Ketones (Man) 5 (Negative) 02/28/22 Unknown Urine Bilirubin (Man) Negative (Negative) 02/28/22 Unknown Urine WBC (Auto) 9.0 /HPF (0.0-6.0) H 02/28/22 Unknown Urine RBC (Auto) 2.0 /HPF (0.0-6.0) 02/28/22 Unknown U Epithel Cells (Auto) 12.0 /HPF (0-13.0) 02/28/22 Unknown Urine Bacteria (Auto) 1+ /HPF (Negative) 02/28/22 Unknown Urine RBC (Manual) 3+ (Negative) 02/28/22 Unknown Urine Mucus Few /HPF 02/28/22 Unknown Short CBC 02/28/22 03/01/22 Range/Units 11:54 03:13 WBC 11.4 H 12.6 H (4.5-11.0) K/mm3 Hgb 16.7 H 14.8 (11.8-15.2) gm/dl Hct 61.3 H* 47.1 H D (35.5-45.6) % Plt Count 334 231 (140-440) K/mm3 BMP 02/28/22 02/28/22 02/28/22 15:27 18:05 18:10 Sodium 151 H 145 Potassium 4.1 4.2 Chloride 101.9 99.2 Carbon Dioxide 15 L 15 L BUN 82 H 81 H Creatinine 5.3 H 5.4 H Glucose 1447 H* 1139 H* 1438 H* Calcium 9.7 9.4 02/28/22 03/01/22 23:08 03:13 Sodium 159 H D 158 H Potassium 3.7 4.1 Chloride 120.0 H 121.6 H Carbon Dioxide 19 L 19 L BUN 79 H 80 H Creatinine 4.8 H 4.9 H Glucose 672 H* 334 H Calcium 8.9 8.3 L Cardiac Enzymes 02/28/22 Range/Units 15:27 Total Creatine Kinase 4409 H (55-170) units/L Troponin T 0.014 (0.00-0.029) ng/mL Liver Function 02/28/22 Range/Units 15:27 Total Bilirubin 0.20 (0.1-1.2) mg/dL AST 47 H (5-40) units/L ALT 22 (7-56) units/L Alkaline Phosphatase 173 H (35-129) units/L Albumin 3.8 L (3.9-5) g/dL Urine 02/28/22 Range/Units Unknown Urine Color Straw (Yellow) Microbiology: Microbiology 02/28/22 11:54 Peripheral/Venous Blood Culture - Preliminary Culture in Progress 02/28/22 11:54 Peripheral/Venous Blood Culture - Preliminary Culture in Progress - Imaging and Cardiology Imaging and Cardiology: Chest x-ray No acute findings Cervical spine CT No acute intracranial process identified Visualized paranasal sinuses and mastoid air cells are essentially clear head Head CT No acute intracranial process Mejias/IV: Voiding Method Condom Catheter Assessment and Plan Assessment and plan: Critical care statement The high probability OF a clinically significant sudden or life-threatening deterioration of the cardiorespiratory system and endocrine system required my full and direct attention, intervention and postoperative management. The aggregate critical care time was 62 minutes. The time is in addition to time spent performing reported procedures but includes the followin: Data review and interpretation 2: Patient assessment and monitoring of vital signs 3: Documentation 4:: Medication orders and management Advance Directives: Yes (Full code) VTE prophylaxis?: Chemical Plan of care discussed with patient/family: Yes - Patient Problems (1) Acute metabolic encephalopathy Current Visit: Yes Status: Acute Plan to address problem: Secondary to DKA and high glucose levels of 1400. At the time of admission patient had a blood glucose level of 1447 and sodium of 151 IV insulin and IV fluids and antibiotics (2) Sepsis with hypotension Current Visit: Yes Status: Acute Plan to address problem: Patient has elevated lactic acid and elevated white cell count and hypotension Also urinary tract infection IV Rocephin initiated IV vancomycin initiated (3) DKA (diabetic ketoacidosis) Current Visit: Yes Status: Acute Qualifiers: Diabetes mellitus type: type 2 Plan to address problem: With altered sensorium DKA protocol IV insulin to be titrated IV fluids Patient also has hyponatremia which is a bad prognostic indicator Patient blood pressure is 82/40 Pressors if necessary Diabetes education when alert and oriented Noncompliance to be addressed Hemoglobin A1c (4) Hypernatremia Current Visit: Yes Status: Acute Plan to address problem: Changed to half-normal saline (5) Dehydration Current Visit: Yes Status: Acute Plan to address problem: Severe volume depletion resulting in high hemoglobin and hematocrit Volume depletion aggressively (6) Rhabdomyolysis Current Visit: Yes Status: Acute Qualifiers: Rhabdomyolysis type: non-traumatic Qualified Code(s): M62.82 - Rhabdomyolysis Plan to address problem: IV fluids for now CK every 12 hours (7) Polycythemia due to fall in plasma volume Current Visit: Yes Status: Acute Plan to address problem: Secondary to volume depletion Aggressive volume repletion (8) UTI (urinary tract infection) Current Visit: Yes Status: Acute Qualifiers: Urinary tract infection type: acute cystitis Plan to address problem: Patient initiated on IV Rocephin (9) LATASHA (acute kidney injury) Current Visit: Yes Status: Acute Plan to address problem: Nephrology consult requested ATN IV fluids for now (10) DVT prophylaxis Current Visit: Yes Status: Acute Plan to address problem: On heparin and GI prophylaxis (11) Advance care planning Current Visit: Yes Status: Acute Plan to address problem: Advance care planning could not be done because of the patient's condition and no relatives being available
[2022-03-01] MEDS ORDERED: VANCOMYCIN PHARMACY TO DOSE IV SCH (07:00)
[2022-03-01] MEDS ORDERED: LACTATED RINGERS 1,000 ML IV ONE (08:00)
[2022-03-01] MEDS ORDERED: VANCOMYCIN 1,500 MG in SODIUM CHLORIDE 0.9% 500 ML 500 ML IV ONE (08:00)
[2022-03-01] MEDS: FAMOTIDINE 20 MG/2 ML INJ IV SCH (10:09)
[2022-03-01] MEDS: amLODIPine 5 MG TAB PO SCH (10:09)
[2022-03-01] MEDS: VALSARTAN 160MG TAB PO SCH (10:09)
[2022-03-01] MEDS: MIRTAZAPINE 15 MG TAB PO SCH (10:09)
--- NOTE | 2022-03-01 13:03 | Consultation ---
History of Present Illness - Reason for Consult Consult date: 03/01/22 acute renal failure - History of Present Illness This is a 61 year old male who presented to the hospital for evaluation of Altered Mental Status. On evalaution in E.R patient was found to be hypotensive, Hypoxic and in DKA. Pertinent labs on admission revealed and levated glucose level of 1447, elevated sodium levels in the 150's,an elevated serum creatinine level of 5.4 and elevated WBC count of 12.6. Patient has history of DM, Hypertension, Hyperlipidemia and has left OLGA and right BKA. Patient is currently in ICU, awake but confused, no family at bedside. Patient's serum creatinine on 10/07/2019 was 1.0. We are being consulted for management of this patient's Acute Renal Failure. Past History Past Medical History: diabetes, hypertension, hyperlipidemia Past Surgical History: Other (left OLGA and right BKA) Social history: no significant social history Family history: no significant family history Medications and Allergies Allergies Allergy/AdvReac Type Severity Reaction Status Date / Time No Known Allergies Allergy Verified 02/28/22 11:01 Home Medications Medication Instructions Recorded Confirmed Last Taken Type Aspirin [Aspirin BABY CHEW TAB] 81 mg PO QDAY 10/06/19 02/28/22 Unknown History Atorvastatin [Lipitor] 40 mg PO QDAY 10/06/19 02/28/22 Unknown History Valsartan [Diovan] 160 mg PO DAILY #30 tablet 10/08/19 02/28/22 Unknown Rx metFORMIN [Glucophage] 850 mg PO BIDDIAB #60 tablet 10/09/19 02/28/22 Unknown Rx Insulin NPH Hum/Reg Insulin Hm 28 units SQ ACHS 02/28/22 02/28/22 Unknown History Insulin NPH/Regular [NovoLIN 70/30] 25 unit SUB-Q QHS 02/28/22 02/28/22 Unknown History Losartan [Cozaar] 100 mg PO QDAY 02/28/22 02/28/22 Unknown History Mirtazapine [Remeron] 15 mg PO DAILY 02/28/22 02/28/22 Unknown History Trazodone HCl [traZODone] 300 mg PO QHS 02/28/22 02/28/22 Unknown History amLODIPine [Norvasc] 2.5 mg PO DAILY 02/28/22 02/28/22 Unknown History busPIRone [Buspar] 10 mg PO DAILY 02/28/22 02/28/22 Unknown History Active Meds: Active Medications Acetaminophen (Acetaminophen 325 Mg Tab) 650 mg PO Q4H PRN PRN Reason: Pain MILD(1-3)/Fever >100.5/SHIN Amlodipine Besylate (Amlodipine 5 Mg Tab) 2.5 mg PO DAILY [facility] Last Admin: 03/01/22 10:09 Dose: Not Given Dextrose (Dextrose 50% In Water (25gm) 50 Ml Syringe) 0 ml IV Q30MIN PRN; Protocol PRN Reason: Hypoglycemia Famotidine (Famotidine 20 Mg/2 Ml Inj) 20 mg IV QAM [facility] Last Admin: 03/01/22 10:09 Dose: 20 mg Insulin Human Regular 100 (units/ Sodium Chloride) 100 mls @ 1 mls/hr IV TITR [facility]; Protocol Last Titration: 03/01/22 12:14 Dose: 4 units/hr, 4 mls/hr Potassium Chloride/Dextrose/Sod Cl (D5w/0.45% Nacl/Kcl 20 Meq) 20 meq in 1,000 mls @ 125 mls/hr IV DIRECT [facility] Last Admin: 03/01/22 05:27 Dose: 125 mls/hr Metoclopramide HCl (Metoclopramide 10 Mg/2 Ml Inj) 5 mg IV Q6H PRN PRN Reason: Nausea And Vomiting Mirtazapine (Mirtazapine 15 Mg Tab) 15 mg PO DAILY [facility] Last Admin: 03/01/22 10:09 Dose: Not Given Morphine Sulfate (Morphine 2 Mg/1 Ml Inj) 2 mg IV Q4H PRN PRN Reason: Pain, Moderate (4-6) Ondansetron HCl (Ondansetron 4 Mg/2 Ml Inj) 4 mg IV Q3H PRN PRN Reason: Nausea And Vomiting Oxycodone/Acetaminophen (Oxycodone /Acetaminophen 5-325mg Tab) 1 tab PO Q6H PRN PRN Reason: Pain, Moderate (4-6) Sodium Chloride (Sodium Chloride 0.9% 10 Ml Flush Syringe) 10 ml IV PRN PRN PRN Reason: LINE FLUSH Sodium Chloride (Sodium Chloride 0.9% 10 Ml Flush Syringe) 10 ml IV BID [facility] Last Admin: 03/01/22 10:09 Dose: 10 ml Valsartan (Valsartan 160mg Tab) 160 mg PO DAILY [facility] Last Admin: 03/01/22 10:09 Dose: Not Given Review of Systems ROS unobtainable: due to mental status Exam - Vital Signs Vital signs: Vital Signs Temp Pulse Resp BP Pulse Ox 96.8 F L 102 H 18 110/70 97 02/28/22 10:58 02/28/22 10:58 02/28/22 10:58 02/28/22 10:58 02/28/22 10:58 - General Appearance General appearance: other (Awake but confused. No acute distress.) EENT: ATNC, PERRL Neck: Present: neck supple, trachea midline Respiratory: Decreased Breath Sounds Heart: S1S2 Gastrointestinal: Present: normoactive bowel sounds Integumentary: warm and dry Neurologic: other (Awake but confused, not oriented to time or place) Musculoskeletal: Present: other (Has left OLGA and right BKA) Psychiatric: other (Confused) Results - Lab Results 03/01/22 03:13 03/01/22 03:13 Most recent lab results ABG pH 7.211 pH Units (7.350-7.450) L 02/28/22 12:18 ABG pCO2 30.8 mm Hg 02/28/22 12:18 ABG pO2 267.8 mm Hg (80.0-90.0) H 02/28/22 12:18 ABG HCO3 12.1 mmol/L (20.0-26.0) L 02/28/22 12:18 ABG O2 Saturation 99.4 % (95.0-99.0) H 02/28/22 12:18 Calcium 8.3 mg/dL (8.4-10.2) L 03/01/22 03:13 Phosphorus 2.80 mg/dL (2.5-4.5) D 02/28/22 23:08 Magnesium 3.20 mg/dL (1.7-2.3) H 02/28/22 23:08 Assessment and Plan Assessment: Acute Renal Failure likely secondary to Prerenal etiology secondary to Hypotension,Sepsis and Dehydration in the setting of Metformin and ARB, may also have underlying CKD from DM and Hypertension Altered Mental Status DKA Diabetes Mellitus Hypertension Hypernatremia Leukocytosis/Sepsis Rhabdomyolysis Plan: Renal labs reviewed. Recent serum creatinine 4.9, prior was 5.4 on admission Serum creatinine on 10/06/2019 was 1.6 and on 10/07/2019 was 1.0, but could have developed CKD due to HTN and uncontrolled DM since then. Has proteinuria, likely from uncontrolled DM but will obtain SPEP and serum free light chains, C3, C4, anti-GBM, hep panel, KORTNEY, ANCA Not resuming home Metformin and Valsartan in the setting of advanced renal failure Obtain urine lytes, protein and eosinophils Renal ultrasound reviewed: Slightly atrophic left kidney. No hydronephrosis, mass or stones. CXR done yesterday was clear Hypernatremia- Continue on D5W/0.45%/20 meq KCL@ 125 ml/hr On BMP checks every 8 hours Avoid nephrotoxic agents Renally dose medications Obtain daily weights Strict I/O's daily, request gillette catheter placement for 24 hours to accurately assess UOP Monitor UOP and renal function closely, may need HD initiation if no significant improvement in renal function Plan of care reviewed by Dr. Parry
[2022-03-01] MEDS: DEXTROSE 50% IN WATER (25GM) 50 ML SYRINGE IV PRN ×2 (13:22→14:01)
--- NOTE | 2022-03-01 13:23 | Ultrasound Report ---
. ULTRASOUND RENAL INDICATION / CLINICAL INFORMATION: ryley. COMPARISON: None available. FINDINGS: RIGHT KIDNEY: Length = 11.5 cm. [normal > 9 cm] - Parenchymal Thickness = 1.7 cm. [normal > 1.5 cm] - Echogenicity: Normal. - Hydronephrosis: None. - Cyst or mass: No significant abnormality. - Stones: None seen. LEFT KIDNEY: Length = 7.5 cm. [normal > 9 cm] - Parenchymal Thickness = 1.5 cm. [normal > 1.5 cm] - Echogenicity: Normal. - Hydronephrosis: None. - Cyst or mass: No significant abnormality. - Stones: None seen. URINARY BLADDER: No significant abnormality. FREE FLUID: None. ADDITIONAL FINDINGS: None. IMPRESSION: Slightly atrophic left kidney. Unremarkable right kidney. No obstructive uropathy. Signer Name: Carlos Vivar Jr, MD Signed: 03/01/2022 1:19 PM Workstation Name: [id number]
--- NOTE | 2022-03-01 13:57 | Consultation ---
History of Present Illness - Reason for Consult Consult date: 03/01/22 DKA Requesting physician: GUILLERMO KUO - History of Present Illness 61 y/o male with known diabetes admitted via ED for DKA and altered mental status. Patient is currently asleep on insulin drip so all history is obtained from chart. Per documentation, found down by home health and altered. Was hypoxic in the field and was on venturi mask yesterday. Found to be in DKA upon arrival here along with renal failure, and hypotension. Central line placed incase need for pressors. Also started on insulin drip and given IVF's. Never required vasopressor therapy. Still altered, in mittens. Renal function improving but still very abnormal. Past History Past Medical History: other (unable to obtain) Past Surgical History: Other (unable to obtain) Social history: other (unable to obtain) Family history: other (unable to obtain) Medications and Allergies Allergies Allergy/AdvReac Type Severity Reaction Status Date / Time No Known Allergies Allergy Verified 02/28/22 11:01 Home Medications Medication Instructions Recorded Confirmed Last Taken Type Aspirin [Aspirin BABY CHEW TAB] 81 mg PO QDAY 10/06/19 02/28/22 Unknown History Atorvastatin [Lipitor] 40 mg PO QDAY 10/06/19 02/28/22 Unknown History Valsartan [Diovan] 160 mg PO DAILY #30 tablet 10/08/19 02/28/22 Unknown Rx metFORMIN [Glucophage] 850 mg PO BIDDIAB #60 tablet 10/09/19 02/28/22 Unknown Rx Insulin NPH Hum/Reg Insulin Hm 28 units SQ ACHS 02/28/22 02/28/22 Unknown History Insulin NPH/Regular [NovoLIN 70/30] 25 unit SUB-Q QHS 02/28/22 02/28/22 Unknown History Losartan [Cozaar] 100 mg PO QDAY 02/28/22 02/28/22 Unknown History Mirtazapine [Remeron] 15 mg PO DAILY 02/28/22 02/28/22 Unknown History Trazodone HCl [traZODone] 300 mg PO QHS 02/28/22 02/28/22 Unknown History amLODIPine [Norvasc] 2.5 mg PO DAILY 02/28/22 02/28/22 Unknown History busPIRone [Buspar] 10 mg PO DAILY 02/28/22 02/28/22 Unknown History Active Meds: Active Medications Acetaminophen (Acetaminophen 325 Mg Tab) 650 mg PO Q4H PRN PRN Reason: Pain MILD(1-3)/Fever >100.5/SHIN Amlodipine Besylate (Amlodipine 5 Mg Tab) 2.5 mg PO DAILY [facility] Last Admin: 03/01/22 10:09 Dose: Not Given Dextrose (Dextrose 50% In Water (25gm) 50 Ml Syringe) 0 ml IV Q30MIN PRN; Protocol PRN Reason: Hypoglycemia Last Admin: 03/01/22 13:22 Dose: 10 ml Famotidine (Famotidine 20 Mg/2 Ml Inj) 20 mg IV QAM [facility] Last Admin: 03/01/22 10:09 Dose: 20 mg Insulin Human Regular 100 (units/ Sodium Chloride) 100 mls @ 1 mls/hr IV TITR [facility]; Protocol Last Titration: 03/01/22 13:16 Dose: 0 units/hr, 0 mls/hr Potassium Chloride/Dextrose/Sod Cl (D5w/0.45% Nacl/Kcl 20 Meq) 20 meq in 1,000 mls @ 125 mls/hr IV DIRECT [facility] Last Admin: 03/01/22 05:27 Dose: 125 mls/hr Metoclopramide HCl (Metoclopramide 10 Mg/2 Ml Inj) 5 mg IV Q6H PRN PRN Reason: Nausea And Vomiting Mirtazapine (Mirtazapine 15 Mg Tab) 15 mg PO DAILY [facility] Last Admin: 03/01/22 10:09 Dose: Not Given Morphine Sulfate (Morphine 2 Mg/1 Ml Inj) 2 mg IV Q4H PRN PRN Reason: Pain, Moderate (4-6) Ondansetron HCl (Ondansetron 4 Mg/2 Ml Inj) 4 mg IV Q3H PRN PRN Reason: Nausea And Vomiting Oxycodone/Acetaminophen (Oxycodone /Acetaminophen 5-325mg Tab) 1 tab PO Q6H PRN PRN Reason: Pain, Moderate (4-6) Sodium Chloride (Sodium Chloride 0.9% 10 Ml Flush Syringe) 10 ml IV PRN PRN PRN Reason: LINE FLUSH Sodium Chloride (Sodium Chloride 0.9% 10 Ml Flush Syringe) 10 ml IV BID [facility] Last Admin: 03/01/22 10:09 Dose: 10 ml Valsartan (Valsartan 160mg Tab) 160 mg PO DAILY [facility] Last Admin: 03/01/22 10:09 Dose: Not Given Review of Systems ROS unobtainable: due to mental status Exam - Constitutional Vitals: Temp Pulse Resp BP Pulse Ox 98.3 F 103 H 26 H 156/82 95 03/01/22 12:00 03/01/22 13:00 03/01/22 13:00 03/01/22 13:00 03/01/22 12:50 General appearance: Present: other (asleep) - Extremities Extremity abnormal: other (bilateral amputee) Results - Labs CBC & Chem 7: 03/01/22 03:13 03/01/22 03:13 Labs: Abnormal lab results 02/28/22 02/28/22 02/28/22 Range/Units 14:53 15:27 18:05 WBC (4.5-11.0) K/mm3 RBC (3.65-5.03) M/mm3 Hct (35.5-45.6) % MCH (28-32) pg RDW (13.2-15.2) % Sodium 151 H (137-145) mmol/L Chloride (98-107) mmol/L Carbon Dioxide 15 L (22-30) mmol/L BUN 82 H (9-20) mg/dL Creatinine 5.3 H (0.8-1.3) mg/dL Glucose 1447 H* 1139 H* (75-100) mg/dL POC Glucose (70-105) mg/dL Lactic Acid 3.60 H* (0.7-2.0) mmol/L Calcium (8.4-10.2) mg/dL Magnesium 3.80 H (1.7-2.3) mg/dL AST 47 H (5-40) units/L Alkaline Phosphatase 173 H (35-129) units/L Total Creatine Kinase 4409 H (55-170) units/L Albumin 3.8 L (3.9-5) g/dL Urine WBC (Auto) (0.0-6.0) /HPF 02/28/22 02/28/22 02/28/22 Range/Units 18:10 23:08 23:08 WBC (4.5-11.0) K/mm3 RBC (3.65-5.03) M/mm3 Hct (35.5-45.6) % MCH (28-32) pg RDW (13.2-15.2) % Sodium 159 H D (137-145) mmol/L Chloride 120.0 H (98-107) mmol/L Carbon Dioxide 15 L 19 L (22-30) mmol/L BUN 81 H 79 H (9-20) mg/dL Creatinine 5.4 H 4.8 H (0.8-1.3) mg/dL Glucose 1438 H* 672 H* (75-100) mg/dL POC Glucose (70-105) mg/dL Lactic Acid 4.70 H* (0.7-2.0) mmol/L Calcium (8.4-10.2) mg/dL Magnesium (1.7-2.3) mg/dL AST (5-40) units/L Alkaline Phosphatase (35-129) units/L Total Creatine Kinase (55-170) units/L Albumin (3.9-5) g/dL Urine WBC (Auto) (0.0-6.0) /HPF 02/28/22 02/28/22 03/01/22 Range/Units 23:08 Unknown 00:42 WBC (4.5-11.0) K/mm3 RBC (3.65-5.03) M/mm3 Hct (35.5-45.6) % MCH (28-32) pg RDW (13.2-15.2) % Sodium (137-145) mmol/L Chloride (98-107) mmol/L Carbon Dioxide (22-30) mmol/L BUN (9-20) mg/dL Creatinine (0.8-1.3) mg/dL Glucose (75-100) mg/dL POC Glucose 520 H (70-105) mg/dL Lactic Acid (0.7-2.0) mmol/L Calcium (8.4-10.2) mg/dL Magnesium 3.20 H (1.7-2.3) mg/dL AST (5-40) units/L Alkaline Phosphatase (35-129) units/L Total Creatine Kinase (55-170) units/L Albumin (3.9-5) g/dL Urine WBC (Auto) 9.0 H (0.0-6.0) /HPF 03/01/22 03/01/22 03/01/22 Range/Units 01:49 02:57 03:13 WBC (4.5-11.0) K/mm3 RBC (3.65-5.03) M/mm3 Hct (35.5-45.6) % MCH (28-32) pg RDW (13.2-15.2) % Sodium 158 H (137-145) mmol/L Chloride 121.6 H (98-107) mmol/L Carbon Dioxide 19 L (22-30) mmol/L BUN 80 H (9-20) mg/dL Creatinine 4.9 H (0.8-1.3) mg/dL Glucose 334 H (75-100) mg/dL POC Glucose 532 H 301 H (70-105) mg/dL Lactic Acid (0.7-2.0) mmol/L Calcium 8.3 L (8.4-10.2) mg/dL Magnesium (1.7-2.3) mg/dL AST (5-40) units/L Alkaline Phosphatase (35-129) units/L Total Creatine Kinase (55-170) units/L Albumin (3.9-5) g/dL Urine WBC (Auto) (0.0-6.0) /HPF 03/01/22 03/01/22 03/01/22 Range/Units 03:13 04:01 05:06 WBC 12.6 H (4.5-11.0) K/mm3 RBC 5.58 H (3.65-5.03) M/mm3 Hct 47.1 H D (35.5-45.6) % MCH 27 L (28-32) pg RDW 17.7 H (13.2-15.2) % Sodium (137-145) mmol/L Chloride (98-107) mmol/L Carbon Dioxide (22-30) mmol/L BUN (9-20) mg/dL Creatinine (0.8-1.3) mg/dL Glucose (75-100) mg/dL POC Glucose 257 H 186 H (70-105) mg/dL Lactic Acid (0.7-2.0) mmol/L Calcium (8.4-10.2) mg/dL Magnesium (1.7-2.3) mg/dL AST (5-40) units/L Alkaline Phosphatase (35-129) units/L Total Creatine Kinase (55-170) units/L Albumin (3.9-5) g/dL Urine WBC (Auto) (0.0-6.0) /HPF 03/01/22 03/01/22 03/01/22 Range/Units 06:03 06:53 08:05 WBC (4.5-11.0) K/mm3 RBC (3.65-5.03) M/mm3 Hct (35.5-45.6) % MCH (28-32) pg RDW (13.2-15.2) % Sodium (137-145) mmol/L Chloride (98-107) mmol/L Carbon Dioxide (22-30) mmol/L BUN (9-20) mg/dL Creatinine (0.8-1.3) mg/dL Glucose (75-100) mg/dL POC Glucose 206 H 225 H 166 H (70-105) mg/dL Lactic Acid (0.7-2.0) mmol/L Calcium (8.4-10.2) mg/dL Magnesium (1.7-2.3) mg/dL AST (5-40) units/L Alkaline Phosphatase (35-129) units/L Total Creatine Kinase (55-170) units/L Albumin (3.9-5) g/dL Urine WBC (Auto) (0.0-6.0) /HPF 03/01/22 03/01/22 03/01/22 Range/Units 09:26 10:16 11:16 WBC (4.5-11.0) K/mm3 RBC (3.65-5.03) M/mm3 Hct (35.5-45.6) % MCH (28-32) pg RDW (13.2-15.2) % Sodium (137-145) mmol/L Chloride (98-107) mmol/L Carbon Dioxide (22-30) mmol/L BUN (9-20) mg/dL Creatinine (0.8-1.3) mg/dL Glucose (75-100) mg/dL POC Glucose 135 H 234 H 136 H (70-105) mg/dL Lactic Acid (0.7-2.0) mmol/L Calcium (8.4-10.2) mg/dL Magnesium (1.7-2.3) mg/dL AST (5-40) units/L Alkaline Phosphatase (35-129) units/L Total Creatine Kinase (55-170) units/L Albumin (3.9-5) g/dL Urine WBC (Auto) (0.0-6.0) /HPF 03/01/22 Range/Units 12:13 WBC (4.5-11.0) K/mm3 RBC (3.65-5.03) M/mm3 Hct (35.5-45.6) % MCH (28-32) pg RDW (13.2-15.2) % Sodium (137-145) mmol/L Chloride (98-107) mmol/L Carbon Dioxide (22-30) mmol/L BUN (9-20) mg/dL Creatinine (0.8-1.3) mg/dL Glucose (75-100) mg/dL POC Glucose 125 H (70-105) mg/dL Lactic Acid (0.7-2.0) mmol/L Calcium (8.4-10.2) mg/dL Magnesium (1.7-2.3) mg/dL AST (5-40) units/L Alkaline Phosphatase (35-129) units/L Total Creatine Kinase (55-170) units/L Albumin (3.9-5) g/dL Urine WBC (Auto) (0.0-6.0) /HPF - Imaging and Cardiology Chest x-ray: image reviewed CT Scan - head: report reviewed (reviewed renal ultrasound report) Assessment and Plan 61 y/o male with altered mental status, likely secondary to a combination of DKA and acute renal failure. 1. NPO 2. Insulin drip, q6hour BMPs 3. IVFs of LR or NS until blood sugar less than 250 then switch to D5W 4. Once gap closes then transition to long acting insulin 5. Renal ultrasound negative, suggest sending Urine Na, Urine Cr and calculate fena. If less than 1 continue volume resuscitation 6. Hypernatremia is likely volume contraction (hypovolemic hypernatremia), follow up renal recs 7. Suggest removal of central line and place multiple peripherals. Guarded prognosis. CCT 31 minutes.
[2022-03-01 15:19] LABS: Calcium 7.4 mg/dL (8.4-10.2)
[2022-03-01 16:25] LABS: Creatinine,Urine 187.2 mg/dL (0.1-20.0)
[2022-03-01 17:12] LABS: Calcium 7.5 mg/dL (8.4-10.2)
[2022-03-01] MEDS ORDERED: DEXTROSE 50% IN WATER (25GM) 50 ML SYRINGE IV PRN (17:32)
[2022-03-01 17:35] LABS: Creatinine,Urine 185.1 mg/dL (0.1-20.0)
[2022-03-01 17:47] LABS: Protein/Creatinine Ratio,Urine 3.13
[2022-03-01] MEDS ORDERED: DEXTROSE 5% IN WATER 1,000 ML IV SCH (18:00)
[2022-03-01] MEDS: LACTATED RINGERS 1,000 ML IV SCH (18:15)
[2022-03-01] MEDS: INSULIN REGULAR, HUMAN 100 UNITS/1 ML SUB-Q SCH (18:16)
[2022-03-01] MEDS: INSULIN GLARGINE 100 UNITS/ML SUB-Q SCH ×2 (18:22→23:12)
--- NOTE | 2022-03-01 19:16 | Progress Note ---
Assessment and Plan Assessment and plan: This is a 61-year-old male with DM, HTN, HLD admitted with sepsis, DKA, LATASHA, rhabdomyolysis Neuro: Acute metabolic encephalopathy -Reorientation as needed -Maintain sleep-wake cycle -As needed analgesia -CT head showed no acute intracranial process -CT C-spine showed no acute intracranial process, visualized paranasal sinuses and mastoid air cells clear -Continue home Remeron Cardiac: h/o hyperlipidemia, hypertension -Continue home amlodipine and Lipitor -Hold valsartan -Hydralazine as needed -Blood pressure monitoring per protocol Respiratory: Acute hypoxic respiratory failure -Presented with hypoxia on room air -Currently on nasal cannula -Supplemental oxygen as needed -Pulmonary hygiene -SPO2 monitor per protocol -CXR showed no acute process GI: Moderate protein calorie malnutrition -Failed bedside swallow evaluation -ST evaluation pending -We will keep n.p.o. for now -PPI -NTR consulted for tube feedings : Acute kidney injury likely secondary to vasomotor nephropathy may also have underlying CKD, rhabdomyolysis -Nephrology consulted, appreciate recommendations -Monitor intake and output -Renally dose medications -Avoid nephrotoxic medications -FeNa 1.2 indicating intrinsic cause for renal failure -Renal ultrasound slightly atrophic left kidney, no hydronephrosis, masses or stones -We will hold DELFIN/ARB -MIVF -Trend BMP and CK ID: Sepsis (POA) -Presented with lactic acidosis, leukocytosis, hypotension -Antibiotic therapy with cefepime -f/u blood culture, urine culture -UA with some pyuria -Monitor WBC and temperature curve Endo: DKA, h/o DM -Presented with venous pH 7.116, anion gap 35, blood glucose 1447 -Initiated on DKA protocol -S/p insulin drip -Transitioned to SSI and long-acting insulin -Accu-Cheks q. 6 while n.p.o. -Avoid hypoglycemia -Hemoglobin A1c 12.5 Heme: Leukocytosis -Trend CBC -Transfuse hemoglobin less than 7 -SCDs to BLE while in bed The high probability of a clinically significant, sudden or life threatening deterioration of the [multi] system(s) required my full and direct attention, intervention and personal management. The aggregate critical care time was [60] minutes. This time is in addition to time spent performing reported procedures but includes the following: [x] Data Review and interpretation [x] Patient assessment and monitoring of vital signs [x] Documentation [x] Medication orders and management Disposition Plan: icu Total Time Spent with Patient (Minutes): 60 History Interval history: This is a 61-year-old male with diabetes, hypertension, hyperlipidemia, s/p bilateral traumatic amputation of lower extremities, and has slurred speech at baseline who presents to the emergency department on 02/28 via EMS for altered mental status. On arrival to the emergency department blood pressure was noted to be 80/60 with oxygen saturations of 74% on room air consistent with acute hypoxic respiratory failure. Lab work was consistent with DKA, hypernatremia, leukocytosis, acute kidney injury, sepsis, rhabdomyolysis. Patient was admitted to the hospital service with consults to CCM and nephrology. Hospital course to date: 01/29: Patient failed bedside swallow evaluation and will be kept NPO. NG tube to be placed by RN with consult to nutrition for tube feeding. Formalized evaluation pending. Patient's anion gap noted to be closed. Due to n.p.o. status, hypernatremia and need for insulin and rhabdo, MIVF changed to 1/2 NS. Patient was also given LR bolus today. Hospitalist Physical - Constitutional Vitals: Temp Pulse Resp BP Pulse Ox 98.7 F 98 H 30 H 156/69 96 03/01/22 16:00 03/01/22 18:50 03/01/22 18:50 03/01/22 18:50 03/01/22 18:50 General appearance: Present: no acute distress - EENT Eyes: Present: PERRL, EOM intact ENT: poor dentition - Neck Neck: Present: normal ROM - Respiratory Respiratory effort: normal Respiratory: bilateral: diminished - Cardiovascular Rhythm: regular Heart Sounds: Present: S1 & S2. Absent: systolic murmur, diastolic murmur - Extremities Extremities: no ischemia, pulses intact, pulses symmetrical, No edema, normal temperature, normal color Peripheral Pulses: within normal limits (AKA/BKA) - Abdominal General gastrointestinal: soft, non-tender, non-distended, normal bowel sounds - Integumentary Integumentary: Present: warm, dry - Psychiatric Psychiatric: cooperative - Neurologic Neurologic: other (Oriented x1) HEART Score - HEART Score Troponin: Troponin T 0.014 ng/mL (0.00-0.029) 02/28/22 15:27 Results - Labs CBC & Chem 7: 03/01/22 03:13 03/01/22 16:43 Labs: Laboratory Last Values WBC 12.6 K/mm3 (4.5-11.0) H 03/01/22 03:13 RBC 5.58 M/mm3 (3.65-5.03) H 03/01/22 03:13 Hgb 14.8 gm/dl (11.8-15.2) 03/01/22 03:13 Hct 47.1 % (35.5-45.6) H D 03/01/22 03:13 MCV 84 fl (84-94) 03/01/22 03:13 MCH 27 pg (28-32) L 03/01/22 03:13 MCHC 32 % (32-34) 03/01/22 03:13 RDW 17.7 % (13.2-15.2) H 03/01/22 03:13 Plt Count 231 K/mm3 (140-440) 03/01/22 03:13 Add Manual Diff Complete 02/28/22 11:54 Total Counted 100 02/28/22 11:54 Seg Neuts % (Manual) 94.0 % (40.0-70.0) H 02/28/22 11:54 Band Neutrophils % 2.0 % 02/28/22 11:54 Lymphocytes % (Manual) 1.0 % (13.4-35.0) L 02/28/22 11:54 Reactive Lymphs % (Man) 0 % 02/28/22 11:54 Monocytes % (Manual) 3.0 % (0.0-7.3) 02/28/22 11:54 Eosinophils % (Manual) 0 % (0.0-4.3) 02/28/22 11:54 Basophils % (Manual) 0 % (0.0-1.8) 02/28/22 11:54 Metamyelocytes % 0 % 02/28/22 11:54 Myelocytes % 0 % 02/28/22 11:54 Promyelocytes % 0 % 02/28/22 11:54 Blast Cells % 0 % 02/28/22 11:54 Nucleated RBC % Not Reportable 02/28/22 11:54 Seg Neutrophils # Man 10.7 K/mm3 (1.8-7.7) H 02/28/22 11:54 Band Neutrophils # 0.2 K/mm3 02/28/22 11:54 Lymphocytes # (Manual) 0.1 K/mm3 (1.2-5.4) L 02/28/22 11:54 Abs React Lymphs (Man) 0.0 K/mm3 02/28/22 11:54 Monocytes # (Manual) 0.3 K/mm3 (0.0-0.8) 02/28/22 11:54 Eosinophils # (Manual) 0.0 K/mm3 (0.0-0.4) 02/28/22 11:54 Basophils # (Manual) 0.0 K/mm3 (0.0-0.1) 02/28/22 11:54 Metamyelocytes # 0.0 K/mm3 02/28/22 11:54 Myelocytes # 0.0 K/mm3 02/28/22 11:54 Promyelocytes # 0.0 K/mm3 02/28/22 11:54 Blast Cells # 0.0 K/mm3 02/28/22 11:54 WBC Morphology Not Reportable 02/28/22 11:54 Hypersegmented Neuts Not Reportable 02/28/22 11:54 Hyposegmented Neuts Not Reportable 02/28/22 11:54 Hypogranular Neuts Not Reportable 02/28/22 11:54 Smudge Cells Not Reportable 02/28/22 11:54 Toxic Granulation Not Reportable 02/28/22 11:54 Toxic Vacuolation Not Reportable 02/28/22 11:54 Dohle Bodies Not Reportable 02/28/22 11:54 Pelger-Huet Anomaly Not Reportable 02/28/22 11:54 Perla Rods Not Reportable 02/28/22 11:54 Platelet Estimate Consistent w auto 02/28/22 11:54 Clumped Platelets Not Reportable 02/28/22 11:54 Plt Clumps, EDTA Not Reportable 02/28/22 11:54 Large Platelets Few 02/28/22 11:54 Giant Platelets Not Reportable 02/28/22 11:54 Platelet Satelliting Not Reportable 02/28/22 11:54 Plt Morphology Comment Not Reportable 02/28/22 11:54 RBC Morphology Normal 02/28/22 11:54 Dimorphic RBCs Not Reportable 02/28/22 11:54 Polychromasia Not Reportable 02/28/22 11:54 Hypochromasia Not Reportable 02/28/22 11:54 Poikilocytosis Not Reportable 02/28/22 11:54 Anisocytosis Not Reportable 02/28/22 11:54 Microcytosis Not Reportable 02/28/22 11:54 Macrocytosis Not Reportable 02/28/22 11:54 Spherocytes Not Reportable 02/28/22 11:54 Pappenheimer Bodies Not Reportable 02/28/22 11:54 Sickle Cells Not Reportable 02/28/22 11:54 Target Cells Not Reportable 02/28/22 11:54 Tear Drop Cells Not Reportable 02/28/22 11:54 Ovalocytes Not Reportable 02/28/22 11:54 Helmet Cells Not Reportable 02/28/22 11:54 [place] Bodies Not Reportable 02/28/22 11:54 [place] Rings Not Reportable 02/28/22 11:54 Jose Cells Not Reportable 02/28/22 11:54 Bite Cells Not Reportable 02/28/22 11:54 Crenated Cell Not Reportable 02/28/22 11:54 Elliptocytes Not Reportable 02/28/22 11:54 Acanthocytes (Spur) Not Reportable 02/28/22 11:54 Rouleaux Not Reportable 02/28/22 11:54 Hemoglobin C Crystals Not Reportable 02/28/22 11:54 Schistocytes Not Reportable 02/28/22 11:54 Malaria parasites Not Reportable 02/28/22 11:54 Josef Bodies Not Reportable 02/28/22 11:54 Hem Pathologist Commnt No 02/28/22 11:54 PT 15.9 Sec. (12.2-14.9) H 02/28/22 13:00 INR 1.14 (0.87-1.13) H 02/28/22 13:00 APTT 24.7 Sec. (24.2-36.6) 02/28/22 13:00 ABG pH 7.211 pH Units (7.350-7.450) L 02/28/22 12:18 ABG pCO2 30.8 mm Hg 02/28/22 12:18 ABG pO2 267.8 mm Hg (80.0-90.0) H 02/28/22 12:18 ABG HCO3 12.1 mmol/L (20.0-26.0) L 02/28/22 12:18 ABG O2 Saturation 99.4 % (95.0-99.0) H 02/28/22 12:18 ABG O2 Content 22.8 (0.0-44) 02/28/22 12:18 ABG Base Excess -14.3 mmol/L (-2.0-3.0) L 02/28/22 12:18 ABG Hemoglobin 16.2 gm/dl (14.0-18.0) 02/28/22 12:18 ABG Carboxyhemoglobin 1.4 % (0.0-5.0) 02/28/22 12:18 ABG Methemoglobin 0.7 % (0.0-1.5) 02/28/22 12:18 VBG pH 7.116 (7.320-7.420) L* 02/28/22 11:54 Oxyhemoglobin 97.4 % (95.0-99.0) 02/28/22 12:18 FiO2 100 % 02/28/22 12:18 Sodium 156 mmol/L (137-145) H 03/01/22 16:43 Potassium 4.9 mmol/L (3.6-5.0) 03/01/22 16:43 Chloride 124.8 mmol/L (98-107) H 03/01/22 16:43 Carbon Dioxide 18 mmol/L (22-30) L 03/01/22 16:43 Anion Gap 18 mmol/L 03/01/22 16:43 BUN 78 mg/dL (9-20) H 03/01/22 16:43 Creatinine 5.1 mg/dL (0.8-1.3) H 03/01/22 16:43 Estimated GFR 14 ml/min 03/01/22 16:43 BUN/Creatinine Ratio 15 % 03/01/22 16:43 Glucose 208 mg/dL (75-100) H 03/01/22 16:43 POC Glucose 275 mg/dL (70-105) H 03/01/22 16:31 Hemoglobin A1c 12.5 % (4-6) H 03/01/22 14:46 Lactic Acid 4.70 mmol/L (0.7-2.0) H* 02/28/22 23:08 Calcium 7.5 mg/dL (8.4-10.2) L 03/01/22 16:43 Phosphorus 2.80 mg/dL (2.5-4.5) D 02/28/22 23:08 Magnesium 3.20 mg/dL (1.7-2.3) H 02/28/22 23:08 Total Bilirubin 0.20 mg/dL (0.1-1.2) 02/28/22 15:27 AST 47 units/L (5-40) H 02/28/22 15:27 ALT 22 units/L (7-56) 02/28/22 15:27 Alkaline Phosphatase 173 units/L (35-129) H 02/28/22 15:27 Ammonia 66.0 umol/L (25-60) H 02/28/22 11:54 Total Creatine Kinase 94819 units/L (55-170) H 03/01/22 16:43 Troponin T 0.014 ng/mL (0.00-0.029) 02/28/22 15:27 Total Protein 6.3 g/dL (6.3-8.2) 02/28/22 15:27 Albumin 3.8 g/dL (3.9-5) L 02/28/22 15:27 Albumin/Globulin Ratio 1.5 % 02/28/22 15:27 TSH 1.170 mlU/mL (0.270-4.200) 02/28/22 14:53 Free T4 1.32 ng/dL (0.76-1.46) 02/28/22 14:53 Urine Color Straw (Yellow) 02/28/22 Unknown Urine Turbidity Slightly cloudy (Clear) 02/28/22 Unknown Specific [place] (Man) 1.010 (1.003-1.030) 02/28/22 Unknown Ur Protein (Man) 2+ mg/dL (Negative) 02/28/22 Unknown Ur Ketones (Man) 5 (Negative) 02/28/22 Unknown Urine Bilirubin (Man) Negative (Negative) 02/28/22 Unknown Urine WBC (Auto) 9.0 /HPF (0.0-6.0) H 02/28/22 Unknown Urine RBC (Auto) 2.0 /HPF (0.0-6.0) 02/28/22 Unknown U Epithel Cells (Auto) 12.0 /HPF (0-13.0) 02/28/22 Unknown Urine Bacteria (Auto) 1+ /HPF (Negative) 02/28/22 Unknown Urine RBC (Manual) 3+ (Negative) 02/28/22 Unknown Urine Mucus Few /HPF 02/28/22 Unknown Urine Eosinophils Rare (None Seen) 03/01/22 15:45 Urine Creatinine 185.1 mg/dL (0.1-20.0) H 03/01/22 15:45 Urine Creatinine 187.2 mg/dL (0.1-20.0) H 03/01/22 15:45 Protein/Creatinin Ratio 3.13 03/01/22 15:45 Urine Sodium 68 mmol/L 03/01/22 15:45 Urine Urea Nitrogen 179 03/01/22 15:45 Urine Total Protein 580 mg/dL (5-11.8) H 03/01/22 15:45 Microbiology: Microbiology 02/28/22 11:54 Peripheral/Venous Blood Culture - Preliminary NO GROWTH AFTER 24 HOURS 02/28/22 11:54 Peripheral/Venous Blood Culture - Preliminary NO GROWTH AFTER 24 HOURS Mejias/IV: Voiding Method Indwelling Catheter Active Medications - Current Medications Current Medications: Generic Name Dose Route Start Last Admin Trade Name Freq PRN Reason Stop Dose Admin Acetaminophen 650 mg 02/28/22 21:22 Acetaminophen 325 Mg Tab PO Q4H PRN Pain MILD(1-3)/Fever >100.5/SHIN Amlodipine Besylate 2.5 mg 02/28/22 22:00 03/01/22 10:09 Amlodipine 5 Mg Tab PO Not Given DAILY JOB Aspirin 81 mg 03/02/22 10:00 Aspirin 81 Mg Tab Chew PO QDAY JOB Atorvastatin Calcium 40 mg 03/02/22 10:00 Atorvastatin 40 Mg Tab PO QDAY JOB Dextrose 50 ml 03/01/22 17:32 Dextrose 50% In Water (25gm) 50 Ml Syringe IV Q30MIN PRN Hypoglycemia Protocol Famotidine 20 mg 02/28/22 22:00 03/01/22 10:09 Famotidine 20 Mg/2 Ml Inj IV 20 mg QAM JOB Administration Hydralazine HCl 10 mg 03/01/22 15:00 Hydralazine 20 Mg/1 Ml Inj IV Q4HR PRN Hypertension Dextrose 1,000 mls @ 75 mls/hr 03/01/22 18:00 D5w IV DIRECT JOB Lactated Ringer's 1,000 mls @ 125 mls/hr 03/01/22 17:45 03/01/22 18:15 Lactated Ringers IV 125 mls/hr DIRECT JOB Administration Ceftriaxone Sodium 500 mg/ 50 mls @ 100 mls/hr 03/01/22 20:00 Sodium Chloride IV Q24H [facility] Protocol Insulin Glargine 10 units 03/01/22 18:00 03/01/22 18:22 Insulin Glargine 100 Units/Ml SUB-Q 10 units QHS [facility] Administration Insulin Human Regular 0 units 03/01/22 18:00 03/01/22 18:16 Insulin Regular, Human 100 Units/1 Ml SUB-Q Not Given Q6H [facility] Protocol Metoclopramide HCl 5 mg 02/28/22 21:22 Metoclopramide 10 Mg/2 Ml Inj IV Q6H PRN Nausea And Vomiting Mirtazapine 15 mg 03/01/22 10:00 03/01/22 10:09 Mirtazapine 15 Mg Tab PO Not Given DAILY [facility] Morphine Sulfate 2 mg 02/28/22 17:08 Morphine 2 Mg/1 Ml Inj IV Q4H PRN Pain, Moderate (4-6) Ondansetron HCl 4 mg 02/28/22 21:22 Ondansetron 4 Mg/2 Ml Inj IV Q3H PRN Nausea And Vomiting Oxycodone/Acetaminophen 1 tab 02/28/22 21:22 Oxycodone /Acetaminophen 5-325mg Tab PO Q6H PRN Pain, Moderate (4-6) Sodium Chloride 10 ml 02/28/22 17:08 Sodium Chloride 0.9% 10 Ml Flush Syringe IV PRN PRN LINE FLUSH Sodium Chloride 10 ml 02/28/22 22:00 03/01/22 10:09 Sodium Chloride 0.9% 10 Ml Flush Syringe IV 10 ml BID JOB Administration Nutrition/Malnutrition Assess - Dietary Evaluation Nutrition/Malnutrition Findings: Nutrition Notes Start: 03/01/22 15:08 Freq: Status: Active Protocol: Document 03/01/22 15:08 AYAKA (Rec: 03/01/22 15:32 AYAKA [id number]) Nutrition Notes Need for Assessment generated from: MD Order,Education Initial or Follow up Brief Note Current Diagnosis Acute Kidney Injury,Diabetes, Sepsis,Hypertension, Hyperlipidemia Other Pertinent Diagnosis AMS, Metabolic Encephalopathy, Dehydration, UTI, Rabdomyolisis, ... Current Diet NPO (since 02/28 21:22). Height 3 ft 5 in Weight 72.1 kg [place] Body Weight (kg) -3.63 BMI 66.4 Intake Prior to Admission Good Weight change and time frame Pt denies having loss body weight BAR BACK. Weight Status Morbidly Obese Subjective/Other Information RD consult for nutrition educatioin assessment. Pt currently on NPO. Pt is on Nasal Cannula, O2 saturation @ 97%, according to Physical Assessment History notes. Pt presents bilateral-BKA, according to Progress notes. Pt still in critical condition , not a candidate for Nutrition Education at the time, will assess feasibility on F/U. Percent of energy/protein needs met: Pt currently on NPO. Nutrition Intervention Follow-Up By: 03/03/22 Additional Comments Nutrition education will be provided at F/U, if feasible. When pertinent, start monitoring food tolerance, %PO intake of meals, and BM.
[2022-03-01] MEDS: hydrALAZINE 20 MG/1 ML INJ IV PRN (19:56)
[2022-03-01] MEDS: D5W/0.45% NACL 1,000 ML IV SCH (20:49)
--- NOTE | 2022-03-01 21:34 | XRay Report ---
ABDOMEN 1 VIEW 03/01/2022 8:44 PM INDICATION / CLINICAL INFORMATION: post ngt insertion. COMPARISON: None available. FINDINGS: TUBES / LINES: Nasogastric tube passes subdiaphragmatically with the tip projecting at the region of the pylorus of the stomach. BOWEL GAS PATTERN: No significant abnormality. FREE AIR / EXTRALUMINAL GAS: None. ADDITIONAL FINDINGS: Mild dextroscoliotic curvature of the lumbar spine. IMPRESSION: 1. A nasogastric tube passes subdiaphragmatically with the tip projecting at the region of the pyloru s. Signer Name: David Tuttle MD Signed: 03/01/2022 9:30 PM Workstation Name: [id number]
[2022-03-01] MEDS ORDERED: ALTEPLASE 2 MG INJ IV ONE (23:17)
[2022-03-02 00:05] LABS: BUN/Creatinine Ratio TNR; Blood Urea Nitrogen TNR mg/dL (9-20)
[2022-03-02 00:06] LABS: Calcium TNR mg/dL (8.4-10.2); Hemolysis Index TNR
[2022-03-02] MEDS ORDERED: WATER FOR INJ Sterile (PF) 10 ML ONE (00:17)
[2022-03-02] MEDS: INSULIN REGULAR, HUMAN 100 UNITS/1 ML SUB-Q SCH ×4 (00:19→17:11)
[2022-03-02] MEDS: LACTATED RINGERS 1,000 ML IV SCH (02:18)
[2022-03-02 04:42] LABS: Hematocrit 41.1 % (35.5-45.6); Hemoglobin 13.3 gm/dl (11.8-15.2); Mean Corpuscular HGB Conc 32 % (32-34); Mean Corpuscular Volume 84 fl (84-94); Platelet Count 137 K/mm3 (140-440); Red Blood Count 4.92 M/mm3 (3.65-5.03); Red Cell Distribution Width 17.5 % (13.2-15.2)
[2022-03-02] MEDS: D5W/0.45% NACL 1,000 ML IV SCH (04:58)
[2022-03-02 05:00] LABS: Calcium 6.8 mg/dL (8.4-10.2)
[2022-03-02 05:15] LABS: Hepatitis B Surface Antigen Non-Reactive (Negative); Hepatitis C Virus Antibody Non-Reactive (NonReactive)
--- NOTE | 2022-03-02 05:32 | XRay Report ---
XR abdomen 1V ap INDICATION / CLINICAL INFORMATION: post NGT re-insertion. COMPARISON: None available. TECHNIQUE: One view supine AP abdomen. FINDINGS: TUBES / LINES: Weighted feeding tube terminates mid fundus. BOWEL GAS PATTERN: No significant abnormality. FREE AIR / EXTRALUMINAL GAS: None seen. ADDITIONAL FINDINGS: No significant additional findings. IMPRESSION: 1. Esophagogastric tube in expected position. Signer Name: Rahul Wright II, MD Signed: 03/02/2022 5:28 AM Workstation Name: [id number]
--- NOTE | 2022-03-02 09:43 | Electrocardiograph Report ---
[facility] Test Date: 2022-02-28 Test Time: 11:09:01 Pat Name: EASTON ZAVALA Department: Room: A263 Gender: M Stull Hewer: DAMEON : 1960 Requested By: GUILLERMO KUO Order Number: [id number] Reading MD: Geovanny Phillips Measurements Intervals [place] Rate: 104 P: 61 WI: 120 QRS: 0 QRSD: 79 T: 249 QT: 331 QTc: 436 Interpretive Statements Sinus tachycardia Nonspecific T abnormalities, diffuse leads No previous ECG available for comparison Electronically Signed On 03-02-2022 9:42:49 EDT by Geovanny Phillips
[2022-03-02] MEDS: amLODIPine 5 MG TAB PO SCH (09:57)
[2022-03-02] MEDS: ASPIRIN 81 MG TAB CHEW PO SCH (09:57)
[2022-03-02] MEDS: MIRTAZAPINE 15 MG TAB PO SCH (09:58)
[2022-03-02] MEDS: FAMOTIDINE 20 MG/2 ML INJ IV SCH (09:58)
[2022-03-02] MEDS ORDERED: INSULIN REGULAR, HUMAN 100 UNITS/1 ML IV SCH (10:00)
[2022-03-02] MEDS ORDERED: cefTRIAXone/NS 1 GM/50 ML 1 GM/50 ML BAG IV SCH (10:00)
[2022-03-02] MEDS ORDERED: amLODIPine 5 MG TAB PO ONE (11:13)
--- NOTE | 2022-03-02 11:24 | Progress Note ---
Assessment and Plan Assessment: Acute Renal Failure likely secondary to Prerenal etiology vs ATN secondary to Hypotension, Sepsis, Rhabdo and Dehydration in the setting of Metformin and ARB, may also have underlying CKD from DM and Hypertension Altered Mental Status DKA Diabetes Mellitus Hypertension Hypernatremia Leukocytosis/Sepsis Rhabdomyolysis Plan: Renal labs reviewed. Recent serum creatinine 5.2, prior was 4.9 yesterday, only had 40 ml of urine output in the last 24 hours Serum creatinine on 10/06/2019 was 1.6 and on 10/07/2019 was 1.0, but could have developed CKD due to HTN and uncontrolled DM since then. Has significant proteinuria, likely from uncontrolled DM but will obtain SPEP and serum free light chains, C3, C4, anti-GBM, KORTNEY, ANCA So far Hep panel-negative Not resuming home Metformin and Valsartan in the setting of advanced renal failure Renal ultrasound reviewed: Slightly atrophic left kidney. No hydronephrosis, mass or stones. CXR done on admisison was clear Hypernatremia-on D5W/0.45%@ 125 ml/hr Rhabdo-on IVF On BMP checks every 8 hours Avoid nephrotoxic agents Renally dose medications Obtain daily weights Strict I/O's daily Given patient's advanced renal failure with no renal recovery so far coupled with low urine output, we have recommended hemodialysis initiation. Spoke to patient's niece Kayleigh who is patient's decision maker, reviewed risks and benefits of hemodialysis and process to include perm-catheter placement. She has consented and agreed for hemodialysis initiation. Consulted IR for perm-catheter placement as patient is going to be transferred out the ICU to [facility] today Placed orders for hemodialysis after perm-catheter primarily for cleaning, no UF If determined patient needs hemodialysis upon discharge then will need case management involvement for outpatient HD placement Plan of care reviewed by Dr. Parry Subjective Date of service: 03/02/22 Principal diagnosis: ARF Interval history: Patient seen lying in bed. Confused. Sitter just walked in room. Spoke to patient's niece named Kayleigh who is the decision maker and reviewed renal labs and the recommendation for hemodialysis initiation. Reviewed risks and benefits and hemodialysis process to include perm-catheter placement. She consented to hemodialysis for the patient. Objective - Vital Signs Vital signs: Vital Signs - 12hr 03/01/22 03/02/22 03/02/22 23:30 00:00 00:08 Temperature 99.1 F Pulse Rate 113 H 113 H 110 H Pulse Rate [ From Monitor] Respiratory 26 H 26 H 27 H Rate Blood Pressure 168/83 151/74 151/74 O2 Sat by Pulse 100 98 99 Oximetry 03/02/22 03/02/22 03/02/22 00:30 01:00 01:30 Temperature Pulse Rate 113 H 112 H 108 H Pulse Rate [ From Monitor] Respiratory 25 H 22 22 Rate Blood Pressure 136/71 127/83 138/76 O2 Sat by Pulse 99 94 92 Oximetry 03/02/22 03/02/22 03/02/22 02:00 02:30 03:00 Temperature Pulse Rate 113 H 111 H 107 H Pulse Rate [ From Monitor] Respiratory 25 H 27 H 24 Rate Blood Pressure 131/73 136/71 141/67 O2 Sat by Pulse 94 98 Oximetry 03/02/22 03/02/22 03/02/22 03:30 03:51 03:58 Temperature 98.8 F Pulse Rate 106 H 103 H Pulse Rate [ From Monitor] Respiratory 24 23 Rate Blood Pressure 145/67 O2 Sat by Pulse 99 96 Oximetry 03/02/22 03/02/22 03/02/22 04:00 04:30 05:01 Temperature Pulse Rate 104 H 105 H 102 H Pulse Rate [ From Monitor] Respiratory 22 25 H 21 Rate Blood Pressure 146/78 137/79 126/84 O2 Sat by Pulse 99 100 100 Oximetry 03/02/22 03/02/22 03/02/22 05:31 06:01 06:30 Temperature Pulse Rate 104 H 106 H 106 H Pulse Rate [ From Monitor] Respiratory 19 25 H 29 H Rate Blood Pressure 151/79 175/90 149/85 O2 Sat by Pulse 100 100 100 Oximetry 03/02/22 03/02/22 03/02/22 07:00 07:30 07:54 Temperature 98.1 F Pulse Rate 105 H 105 H Pulse Rate [ From Monitor] Respiratory 26 H 27 H Rate Blood Pressure 166/85 165/78 O2 Sat by Pulse 98 100 Oximetry 03/02/22 03/02/22 03/02/22 08:00 08:30 09:00 Temperature Pulse Rate 104 H 103 H 102 H Pulse Rate [ 103 H From Monitor] Respiratory 24 26 H 23 Rate Blood Pressure 156/83 153/85 168/82 O2 Sat by Pulse 100 100 Oximetry 03/02/22 03/02/22 03/02/22 09:30 09:57 10:00 Temperature Pulse Rate 103 H 101 H 103 H Pulse Rate [ From Monitor] Respiratory 21 23 Rate Blood Pressure 160/82 160/82 168/82 O2 Sat by Pulse 100 97 Oximetry 03/02/22 03/02/22 10:30 11:00 Temperature Pulse Rate 105 H 106 H Pulse Rate [ From Monitor] Respiratory 26 H 24 Rate Blood Pressure 161/82 170/80 O2 Sat by Pulse 98 97 Oximetry - General Appearance General appearance: other (Awake when stimulated. Confused.) EENT: ATNC, PERRL Neck: no JVD, supple Respiratory: Present: Decreased Breath Sounds Cardiology: S1S2 Gastrointestinal: normoactive bowel sounds Integumentary: warm and dry Neurologic: other (Awake but confused) Musculoskeletal: other (Has left AKA and right BKA) - Lab 03/02/22 04:27 03/02/22 04:27 Most recent lab results ABG pH 7.211 pH Units (7.350-7.450) L 02/28/22 12:18 ABG pCO2 30.8 mm Hg 02/28/22 12:18 ABG pO2 267.8 mm Hg (80.0-90.0) H 02/28/22 12:18 ABG HCO3 12.1 mmol/L (20.0-26.0) L 02/28/22 12:18 ABG O2 Saturation 99.4 % (95.0-99.0) H 02/28/22 12:18 Calcium 6.8 mg/dL (8.4-10.2) L 03/02/22 04:27 Phosphorus 3.60 mg/dL (2.5-4.5) D 03/02/22 04:27 Magnesium 3.20 mg/dL (1.7-2.3) H 02/28/22 23:08 Urine Creatinine 185.1 mg/dL (0.1-20.0) H 03/01/22 15:45 Urine Creatinine 187.2 mg/dL (0.1-20.0) H 03/01/22 15:45 Urine Sodium 68 mmol/L 03/01/22 15:45 Urine Total Protein 580 mg/dL (5-11.8) H 03/01/22 15:45 Medications & Allergies - Medications Allergies/Adverse Reactions: Allergies No Known Allergies Allergy (Verified 02/28/22 11:01) Home Medications: Home Medications Medication Instructions Recorded Confirmed Last Taken Type Aspirin [Aspirin BABY CHEW TAB] 81 mg PO QDAY 10/06/19 02/28/22 Unknown History Atorvastatin [Lipitor] 40 mg PO QDAY 10/06/19 02/28/22 Unknown History Valsartan [Diovan] 160 mg PO DAILY #30 tablet 10/08/19 02/28/22 Unknown Rx metFORMIN [Glucophage] 850 mg PO BIDDIAB #60 tablet 10/09/19 02/28/22 Unknown Rx Insulin NPH Hum/Reg Insulin Hm 28 units SQ ACHS 02/28/22 02/28/22 Unknown History Insulin NPH/Regular [NovoLIN 70/30] 25 unit SUB-Q QHS 02/28/22 02/28/22 Unknown History Losartan [Cozaar] 100 mg PO QDAY 02/28/22 02/28/22 Unknown History Mirtazapine [Remeron] 15 mg PO DAILY 02/28/22 02/28/22 Unknown History Trazodone HCl [traZODone] 300 mg PO QHS 02/28/22 02/28/22 Unknown History amLODIPine [Norvasc] 2.5 mg PO DAILY 02/28/22 02/28/22 Unknown History busPIRone [Buspar] 10 mg PO DAILY 02/28/22 02/28/22 Unknown History Active Medications: Generic Name Dose Route Start Last Admin Trade Name Freq PRN Reason Stop Dose Admin Acetaminophen 650 mg 02/28/22 21:22 Acetaminophen 325 Mg Tab PO Q4H PRN Pain MILD(1-3)/Fever >100.5/SHIN Amlodipine Besylate 2.5 mg 02/28/22 22:00 03/02/22 09:57 Amlodipine 5 Mg Tab PO 2.5 mg DAILY JOB Administration Amlodipine Besylate 5 mg 03/03/22 10:00 Amlodipine 5 Mg Tab FEEDTUBE QDAY JOB Amlodipine Besylate 5 mg 03/02/22 11:13 Amlodipine 5 Mg Tab FEEDTUBE 03/02/22 11:14 ONCE ONE Aspirin 81 mg 03/02/22 10:00 03/02/22 09:57 Aspirin 81 Mg Tab Chew PO 81 mg QDAY JOB Administration Atorvastatin Calcium 40 mg 03/02/22 10:00 03/02/22 09:58 Atorvastatin 40 Mg Tab PO 40 mg QDAY JOB Administration Dextrose 50 ml 03/01/22 17:32 Dextrose 50% In Water (25gm) 50 Ml Syringe IV Q30MIN PRN Hypoglycemia Protocol Famotidine 20 mg 03/03/22 10:00 Famotidine 20 Mg Tab FEEDTUBE QDAY JOB Hydralazine HCl 10 mg 03/01/22 15:00 03/01/22 19:56 Hydralazine 20 Mg/1 Ml Inj IV 10 mg Q4HR PRN Administration Hypertension Hydralazine HCl 10 mg 03/02/22 14:00 Hydralazine 10 Mg Tab FEEDTUBE Q8HR JOB Dextrose/Sodium Chloride 1,000 mls @ 125 mls/hr 03/01/22 20:00 03/02/22 04:58 D5/0.45ns IV 125 mls/hr DIRECT JOB Administration Ceftriaxone Sodium 1 gm in 50 mls @ 100 mls/hr 03/02/22 10:00 03/02/22 10:30 Rocephin/Ns 1 Gm/50 Ml IV Infused Q24H ON LICENSE OF [facility] Infusion Protocol Insulin Glargine 20 units 03/02/22 22:00 Insulin Glargine 100 Units/Ml SUB-Q QHS ON LICENSE OF [facility] Insulin Human Regular 0 units 03/01/22 18:00 03/02/22 05:32 Insulin Regular, Human 100 Units/1 Ml SUB-Q 6 units Q6H JOB Administration Protocol Insulin Human Regular 10 units 03/02/22 10:00 03/02/22 09:57 Insulin Regular, Human 100 Units/1 Ml IV 03/02/22 14:00 10 units ONCE@1000 JOB Administration Metoclopramide HCl 5 mg 02/28/22 21:22 Metoclopramide 10 Mg/2 Ml Inj IV Q6H PRN Nausea And Vomiting Mirtazapine 15 mg 03/02/22 11:19 Mirtazapine 15 Mg Tab FEEDTUBE DAILY JOB Ondansetron HCl 4 mg 02/28/22 21:22 Ondansetron 4 Mg/2 Ml Inj IV Q3H PRN Nausea And Vomiting Oxycodone/Acetaminophen 1 tab 02/28/22 21:22 Oxycodone /Acetaminophen 5-325mg Tab PO Q6H PRN Pain, Moderate (4-6) Sodium Chloride 10 ml 02/28/22 17:08 Sodium Chloride 0.9% 10 Ml Flush Syringe IV PRN PRN LINE FLUSH Sodium Chloride 10 ml 02/28/22 22:00 03/02/22 09:58 Sodium Chloride 0.9% 10 Ml Flush Syringe IV 10 ml BID JOB Administration
[2022-03-02] MEDS ORDERED: amLODIPine 5 MG TAB FEEDTUBE SCH (12:00)
--- NOTE | 2022-03-02 12:24 | Progress Note ---
Assessment and Plan 61 y/o male with altered mental status, likely secondary to a combination of DKA and acute renal failure. 03/02/22: DKA essentially resolved and now acidemia more from renal failure. Follow up renal recs and decision on need for perm cath. Transition out of ICU to step down, given mental state concern for just regular floor bed at this time. Will sign off. 1. NPO 2. Insulin drip, q6hour BMPs 3. IVFs of LR or NS until blood sugar less than 250 then switch to D5W 4. Once gap closes then transition to long acting insulin 5. Renal ultrasound negative, suggest sending Urine Na, Urine Cr and calculate fena. If less than 1 continue volume resuscitation 6. Hypernatremia is likely volume contraction (hypovolemic hypernatremia), follow up renal recs 7. Suggest removal of central line and place multiple peripherals. Guarded prognosis. CCT 31 minutes. Subjective Date of service: 03/02/22 Principal diagnosis: ARF Interval history: DKA resolved but renal function has worsened. Acidemia is from this. mental status is unchnaged vs slightly worse Objective - Constitutional Vitals: Vital Signs - 12hr 03/02/22 03/02/22 03/02/22 00:30 01:00 01:30 Temperature Pulse Rate 113 H 112 H 108 H Pulse Rate [ From Monitor] Respiratory 25 H 22 22 Rate Blood Pressure 136/71 127/83 138/76 O2 Sat by Pulse 99 94 92 Oximetry 03/02/22 03/02/22 03/02/22 02:00 02:30 03:00 Temperature Pulse Rate 113 H 111 H 107 H Pulse Rate [ From Monitor] Respiratory 25 H 27 H 24 Rate Blood Pressure 131/73 136/71 141/67 O2 Sat by Pulse 94 98 Oximetry 03/02/22 03/02/22 03/02/22 03:30 03:51 03:58 Temperature 98.8 F Pulse Rate 106 H 103 H Pulse Rate [ From Monitor] Respiratory 24 23 Rate Blood Pressure 145/67 O2 Sat by Pulse 99 96 Oximetry 03/02/22 03/02/22 03/02/22 04:00 04:30 05:01 Temperature Pulse Rate 104 H 105 H 102 H Pulse Rate [ From Monitor] Respiratory 22 25 H 21 Rate Blood Pressure 146/78 137/79 126/84 O2 Sat by Pulse 99 100 100 Oximetry 03/02/22 03/02/22 03/02/22 05:31 06:01 06:30 Temperature Pulse Rate 104 H 106 H 106 H Pulse Rate [ From Monitor] Respiratory 19 25 H 29 H Rate Blood Pressure 151/79 175/90 149/85 O2 Sat by Pulse 100 100 100 Oximetry 03/02/22 03/02/22 03/02/22 07:00 07:30 07:54 Temperature 98.1 F Pulse Rate 105 H 105 H Pulse Rate [ From Monitor] Respiratory 26 H 27 H Rate Blood Pressure 166/85 165/78 O2 Sat by Pulse 98 100 Oximetry 03/02/22 03/02/22 03/02/22 08:00 08:30 09:00 Temperature Pulse Rate 104 H 103 H 102 H Pulse Rate [ 103 H From Monitor] Respiratory 24 26 H 23 Rate Blood Pressure 156/83 153/85 168/82 O2 Sat by Pulse 100 100 Oximetry 03/02/22 03/02/22 03/02/22 09:30 09:57 10:00 Temperature Pulse Rate 103 H 101 H 103 H Pulse Rate [ From Monitor] Respiratory 21 23 Rate Blood Pressure 160/82 160/82 168/82 O2 Sat by Pulse 100 97 Oximetry 03/02/22 03/02/22 10:30 11:00 Temperature Pulse Rate 105 H 106 H Pulse Rate [ From Monitor] Respiratory 26 H 24 Rate Blood Pressure 161/82 170/80 O2 Sat by Pulse 98 97 Oximetry - Labs CBC & Chem 7: 03/02/22 04:27 03/02/22 04:27 Labs: Abnormal lab results 03/01/22 03/01/22 03/01/22 Range/Units 08:05 09:26 10:16 WBC (4.5-11.0) K/mm3 MCH (28-32) pg RDW (13.2-15.2) % Plt Count (140-440) K/mm3 Sodium (137-145) mmol/L Chloride (98-107) mmol/L Carbon Dioxide (22-30) mmol/L BUN (9-20) mg/dL Creatinine (0.8-1.3) mg/dL Glucose (75-100) mg/dL POC Glucose 166 H 135 H 234 H (70-105) mg/dL Hemoglobin A1c (4-6) % Calcium (8.4-10.2) mg/dL Total Creatine Kinase (55-170) units/L Urine Creatinine (0.1-20.0) mg/dL Urine Total Protein (5-11.8) mg/dL 03/01/22 03/01/22 03/01/22 Range/Units 11:16 12:13 13:59 WBC (4.5-11.0) K/mm3 MCH (28-32) pg RDW (13.2-15.2) % Plt Count (140-440) K/mm3 Sodium (137-145) mmol/L Chloride (98-107) mmol/L Carbon Dioxide (22-30) mmol/L BUN (9-20) mg/dL Creatinine (0.8-1.3) mg/dL Glucose (75-100) mg/dL POC Glucose 136 H 125 H 67 L (70-105) mg/dL Hemoglobin A1c (4-6) % Calcium (8.4-10.2) mg/dL Total Creatine Kinase (55-170) units/L Urine Creatinine (0.1-20.0) mg/dL Urine Total Protein (5-11.8) mg/dL 03/01/22 03/01/22 03/01/22 Range/Units 14:46 14:46 15:09 WBC (4.5-11.0) K/mm3 MCH (28-32) pg RDW (13.2-15.2) % Plt Count (140-440) K/mm3 Sodium 158 H (137-145) mmol/L Chloride 124.8 H (98-107) mmol/L Carbon Dioxide 19 L (22-30) mmol/L BUN 77 H (9-20) mg/dL Creatinine 4.5 H (0.8-1.3) mg/dL Glucose 192 H (75-100) mg/dL POC Glucose 167 H (70-105) mg/dL Hemoglobin A1c 12.5 H (4-6) % Calcium 7.4 L (8.4-10.2) mg/dL Total Creatine Kinase (55-170) units/L Urine Creatinine (0.1-20.0) mg/dL Urine Total Protein (5-11.8) mg/dL 03/01/22 03/01/22 03/01/22 Range/Units 15:45 15:45 16:31 WBC (4.5-11.0) K/mm3 MCH (28-32) pg RDW (13.2-15.2) % Plt Count (140-440) K/mm3 Sodium (137-145) mmol/L Chloride (98-107) mmol/L Carbon Dioxide (22-30) mmol/L BUN (9-20) mg/dL Creatinine (0.8-1.3) mg/dL Glucose (75-100) mg/dL POC Glucose 275 H (70-105) mg/dL Hemoglobin A1c (4-6) % Calcium (8.4-10.2) mg/dL Total Creatine Kinase (55-170) units/L Urine Creatinine 187.2 H 185.1 H (0.1-20.0) mg/dL Urine Total Protein 580 H (5-11.8) mg/dL 03/01/22 03/01/22 03/01/22 Range/Units 16:43 17:57 18:22 WBC (4.5-11.0) K/mm3 MCH (28-32) pg RDW (13.2-15.2) % Plt Count (140-440) K/mm3 Sodium 156 H (137-145) mmol/L Chloride 124.8 H (98-107) mmol/L Carbon Dioxide 18 L (22-30) mmol/L BUN 78 H (9-20) mg/dL Creatinine 5.1 H (0.8-1.3) mg/dL Glucose 208 H (75-100) mg/dL POC Glucose 188 H 156 H (70-105) mg/dL Hemoglobin A1c (4-6) % Calcium 7.5 L (8.4-10.2) mg/dL Total Creatine Kinase 39828 H (55-170) units/L Urine Creatinine (0.1-20.0) mg/dL Urine Total Protein (5-11.8) mg/dL 03/01/22 03/01/22 03/02/22 Range/Units 20:03 21:58 00:15 WBC (4.5-11.0) K/mm3 MCH (28-32) pg RDW (13.2-15.2) % Plt Count (140-440) K/mm3 Sodium (137-145) mmol/L Chloride (98-107) mmol/L Carbon Dioxide (22-30) mmol/L BUN (9-20) mg/dL Creatinine (0.8-1.3) mg/dL Glucose (75-100) mg/dL POC Glucose 129 H 125 H 287 H (70-105) mg/dL Hemoglobin A1c (4-6) % Calcium (8.4-10.2) mg/dL Total Creatine Kinase (55-170) units/L Urine Creatinine (0.1-20.0) mg/dL Urine Total Protein (5-11.8) mg/dL 03/02/22 03/02/22 03/02/22 Range/Units 03:02 04:27 04:27 WBC 11.7 H (4.5-11.0) K/mm3 MCH 27 L (28-32) pg RDW 17.5 H (13.2-15.2) % Plt Count 137 L (140-440) K/mm3 Sodium 149 H (137-145) mmol/L Chloride 120.4 H (98-107) mmol/L Carbon Dioxide 14 L (22-30) mmol/L BUN 80 H (9-20) mg/dL Creatinine 5.2 H (0.8-1.3) mg/dL Glucose 380 H (75-100) mg/dL POC Glucose 291 H (70-105) mg/dL Hemoglobin A1c (4-6) % Calcium 6.8 L (8.4-10.2) mg/dL Total Creatine Kinase 29402 H (55-170) units/L Urine Creatinine (0.1-20.0) mg/dL Urine Total Protein (5-11.8) mg/dL 03/02/22 03/02/22 Range/Units 05:29 08:42 WBC (4.5-11.0) K/mm3 MCH (28-32) pg RDW (13.2-15.2) % Plt Count (140-440) K/mm3 Sodium (137-145) mmol/L Chloride (98-107) mmol/L Carbon Dioxide (22-30) mmol/L BUN (9-20) mg/dL Creatinine (0.8-1.3) mg/dL Glucose (75-100) mg/dL POC Glucose 330 H 378 H (70-105) mg/dL Hemoglobin A1c (4-6) % Calcium (8.4-10.2) mg/dL Total Creatine Kinase (55-170) units/L Urine Creatinine (0.1-20.0) mg/dL Urine Total Protein (5-11.8) mg/dL Medications & Allergies - Medications Allergies/Adverse Reactions: Allergies No Known Allergies Allergy (Verified 02/28/22 11:01) Home Medications: Home Medications Medication Instructions Recorded Confirmed Last Taken Type Aspirin [Aspirin BABY CHEW TAB] 81 mg PO QDAY 10/06/19 02/28/22 Unknown History Atorvastatin [Lipitor] 40 mg PO QDAY 10/06/19 02/28/22 Unknown History Valsartan [Diovan] 160 mg PO DAILY #30 tablet 10/08/19 02/28/22 Unknown Rx metFORMIN [Glucophage] 850 mg PO BIDDIAB #60 tablet 10/09/19 02/28/22 Unknown Rx Insulin NPH Hum/Reg Insulin Hm 28 units SQ ACHS 02/28/22 02/28/22 Unknown History Insulin NPH/Regular [NovoLIN 70/30] 25 unit SUB-Q QHS 02/28/22 02/28/22 Unknown History Losartan [Cozaar] 100 mg PO QDAY 02/28/22 02/28/22 Unknown History Mirtazapine [Remeron] 15 mg PO DAILY 02/28/22 02/28/22 Unknown History Trazodone HCl [traZODone] 300 mg PO QHS 02/28/22 02/28/22 Unknown History amLODIPine [Norvasc] 2.5 mg PO DAILY 02/28/22 02/28/22 Unknown History busPIRone [Buspar] 10 mg PO DAILY 02/28/22 02/28/22 Unknown History Active Medications: Generic Name Dose Route Start Last Admin Trade Name Freq PRN Reason Stop Dose Admin Acetaminophen 650 mg 02/28/22 21:22 Acetaminophen 325 Mg Tab PO Q4H PRN Pain MILD(1-3)/Fever >100.5/SHIN Amlodipine Besylate 5 mg 03/03/22 10:00 Amlodipine 5 Mg Tab FEEDTUBE QDAY [facility] Amlodipine Besylate 5 mg 03/02/22 12:00 Amlodipine 5 Mg Tab FEEDTUBE 03/02/22 16:00 ONCE@1200 JOB Aspirin 81 mg 03/02/22 10:00 03/02/22 09:57 Aspirin 81 Mg Tab Chew PO 81 mg QDAY [facility] Administration Atorvastatin Calcium 40 mg 03/02/22 10:00 03/02/22 09:58 Atorvastatin 40 Mg Tab PO 40 mg QDAY JOB Administration Dextrose 50 ml 03/01/22 17:32 Dextrose 50% In Water (25gm) 50 Ml Syringe IV Q30MIN PRN Hypoglycemia Protocol Famotidine 20 mg 03/03/22 10:00 Famotidine 20 Mg Tab FEEDTUBE QDAY JOB Hydralazine HCl 10 mg 03/01/22 15:00 03/01/22 19:56 Hydralazine 20 Mg/1 Ml Inj IV 10 mg Q4HR PRN Administration Hypertension Hydralazine HCl 10 mg 03/02/22 14:00 Hydralazine 10 Mg Tab FEEDTUBE Q8HR JOB Dextrose/Sodium Chloride 1,000 mls @ 125 mls/hr 03/01/22 20:00 03/02/22 04:58 D5/0.45ns IV 125 mls/hr DIRECT JOB Administration Ceftriaxone Sodium 1 gm in 50 mls @ 100 mls/hr 03/02/22 10:00 03/02/22 10:30 Rocephin/Ns 1 Gm/50 Ml IV Infused Q24H [facility] Infusion Protocol Insulin Glargine 20 units 03/02/22 22:00 Insulin Glargine 100 Units/Ml SUB-Q QHS JOB Insulin Human Regular 0 units 03/01/22 18:00 03/02/22 05:32 Insulin Regular, Human 100 Units/1 Ml SUB-Q 6 units Q6H JOB Administration Protocol Insulin Human Regular 10 units 03/02/22 10:00 03/02/22 09:57 Insulin Regular, Human 100 Units/1 Ml IV 03/02/22 14:00 10 units ONCE@1000 JOB Administration Metoclopramide HCl 5 mg 02/28/22 21:22 Metoclopramide 10 Mg/2 Ml Inj IV Q6H PRN Nausea And Vomiting Mirtazapine 15 mg 03/02/22 12:00 Mirtazapine 15 Mg Tab FEEDTUBE DAILY JOB Ondansetron HCl 4 mg 02/28/22 21:22 Ondansetron 4 Mg/2 Ml Inj IV Q3H PRN Nausea And Vomiting Oxycodone/Acetaminophen 1 tab 02/28/22 21:22 Oxycodone /Acetaminophen 5-325mg Tab PO Q6H PRN Pain, Moderate (4-6) Sodium Chloride 10 ml 02/28/22 17:08 Sodium Chloride 0.9% 10 Ml Flush Syringe IV PRN PRN LINE FLUSH Sodium Chloride 10 ml 02/28/22 22:00 03/02/22 09:58 Sodium Chloride 0.9% 10 Ml Flush Syringe IV 10 ml BID JOB Administration HEART Score - HEART Score Troponin: Troponin T 0.014 ng/mL (0.00-0.029) 02/28/22 15:27
--- NOTE | 2022-03-02 12:29 | Progress Note ---
<ALONDRA LAGUNAS - Last Filed: 03/02/22 12:45> Assessment and Plan Assessment and plan: This is a 61-year-old male with DM, HTN, HLD admitted with sepsis, DKA, LATASHA, rhabdomyolysis Neuro: Acute metabolic encephalopathy -Reorientation as needed -Maintain sleep-wake cycle -As needed analgesia -CT head showed no acute intracranial process -CT C-spine showed no acute intracranial process, visualized paranasal sinuses and mastoid air cells clear -Continue home Remeron Cardiac: h/o hyperlipidemia, hypertension -Continue home amlodipine and Lipitor -Hold valsartan -Hydralazine as needed -Blood pressure monitoring per protocol Respiratory: Acute hypoxic respiratory failure -Presented with hypoxia on room air -Currently on nasal cannula -Supplemental oxygen as needed -Pulmonary hygiene -SPO2 monitor per protocol -CXR showed no acute process GI: Moderate protein calorie malnutrition -Failed bedside swallow evaluation -ST evaluation pending -24 hours +1070 mL -PPI -NTR consulted for tube feedings : Acute kidney injury likely secondary to vasomotor nephropathy may also have underlying CKD, rhabdomyolysis -Nephrology consulted, appreciate recommendations -HD per nephro -Monitor intake and output -Renally dose medications -Avoid nephrotoxic medications -FeNa 1.2 indicating intrinsic cause for renal failure -Renal ultrasound slightly atrophic left kidney, no hydronephrosis, masses or stones -We will hold DELFIN/ARB -MIVF -Trend BMP and CK ID: Sepsis (POA) -Presented with lactic acidosis, leukocytosis, hypotension -Antibiotic therapy with cefepime -f/u blood culture, urine culture -UA with some pyuria -Monitor WBC and temperature curve Endo: DKA, h/o DM -Presented with venous pH 7.116, anion gap 35, blood glucose 1447 -Initiated on DKA protocol -S/p insulin drip -Transitioned to SSI and long-acting insulin -Accu-Cheks q. 6 while n.p.o. -Avoid hypoglycemia -Hemoglobin A1c 12.5 Heme: Leukocytosis -Trend CBC -Transfuse hemoglobin less than 7 -SCDs to BLE while in bed The high probability of a clinically significant, sudden or life threatening deterioration of the [multi] system(s) required my full and direct attention, intervention and personal management. The aggregate critical care time was [60] minutes. This time is in addition to time spent performing reported procedures but includes the following: [x] Data Review and interpretation [x] Patient assessment and monitoring of vital signs [x] Documentation [x] Medication orders and management Disposition Plan: imcu Total Time Spent with Patient (Minutes): 60 History Interval history: This is a 61-year-old male with diabetes, hypertension, hyperlipidemia, s/p bilateral traumatic amputation of lower extremities, and has slurred speech at baseline who presents to the emergency department on 02/28 via EMS for altered mental status. On arrival to the emergency department blood pressure was noted to be 80/60 with oxygen saturations of 74% on room air consistent with acute hypoxic respiratory failure. Lab work was consistent with DKA, hypernatremia, leukocytosis, acute kidney injury, sepsis, rhabdomyolysis. Patient was admitted to the hospital service with consults to CCM and nephrology. Hospital course to date: 03/01: Patient failed bedside swallow evaluation and will be kept NPO. NG tube to be placed by RN with consult to nutrition for tube feeding. Formalized evaluation pending. Patient's anion gap noted to be closed. Due to n.p.o. status, hypernatremia and need for insulin and rhabdo, MIVF changed to 1/2 NS. Patient was also given LR bolus today. 03/02: Patient remains confused, hypernatremia and rhabdomyolysis is improved however renal function has worsened. Patient was given IV insulin for hyperglycemia and will increase Lantus. RN to start TF when able. Patient will be transferred to IMCU. Hydralazine IV as needed, hydralazine p.o. and increase in amlodipine for hypertension. Bilateral respirations events overnight as patient removed NG tube which was replaced. Patient will be on half-normal saline at 125 for rhabdomyolysis. Nephrology plans to initiate hemodialysis. Hospitalist Physical - Constitutional Vitals: Temp Pulse Resp BP Pulse Ox 98.1 F 106 H 24 170/80 97 03/02/22 07:54 03/02/22 11:00 03/02/22 11:00 03/02/22 11:00 03/02/22 11:00 General appearance: Present: no acute distress - EENT Eyes: Present: PERRL, EOM intact ENT: poor dentition - Neck Neck: Present: normal ROM - Respiratory Respiratory effort: normal Respiratory: bilateral: diminished - Cardiovascular Rhythm: regular Heart Sounds: Present: S1 & S2. Absent: systolic murmur, diastolic murmur - Extremities Extremities: no ischemia, pulses intact, pulses symmetrical, normal temperature, normal color Extremity abnormal: edema Peripheral Pulses: within normal limits - Abdominal General gastrointestinal: soft, non-tender, non-distended, normal bowel sounds - Integumentary Integumentary: Present: warm, dry - Psychiatric Psychiatric: cooperative - Neurologic Neurologic: other (orientated to self, confused to location/year) - Allied Health Allied health notes reviewed: nursing, RT, social work HEART Score - HEART Score Troponin: Troponin T 0.014 ng/mL (0.00-0.029) 02/28/22 15:27 Results - Labs CBC & Chem 7: 03/02/22 04:27 03/02/22 04:27 Labs: Laboratory Last Values WBC 11.7 K/mm3 (4.5-11.0) H 03/02/22 04:27 RBC 4.92 M/mm3 (3.65-5.03) 03/02/22 04:27 Hgb 13.3 gm/dl (11.8-15.2) 03/02/22 04:27 Hct 41.1 % (35.5-45.6) D 03/02/22 04:27 MCV 84 fl (84-94) 03/02/22 04:27 MCH 27 pg (28-32) L 03/02/22 04:27 MCHC 32 % (32-34) 03/02/22 04:27 RDW 17.5 % (13.2-15.2) H 03/02/22 04:27 Plt Count 137 K/mm3 (140-440) L 03/02/22 04:27 Add Manual Diff Complete 02/28/22 11:54 Total Counted 100 02/28/22 11:54 Seg Neuts % (Manual) 94.0 % (40.0-70.0) H 02/28/22 11:54 Band Neutrophils % 2.0 % 02/28/22 11:54 Lymphocytes % (Manual) 1.0 % (13.4-35.0) L 02/28/22 11:54 Reactive Lymphs % (Man) 0 % 02/28/22 11:54 Monocytes % (Manual) 3.0 % (0.0-7.3) 02/28/22 11:54 Eosinophils % (Manual) 0 % (0.0-4.3) 02/28/22 11:54 Basophils % (Manual) 0 % (0.0-1.8) 02/28/22 11:54 Metamyelocytes % 0 % 02/28/22 11:54 Myelocytes % 0 % 02/28/22 11:54 Promyelocytes % 0 % 02/28/22 11:54 Blast Cells % 0 % 02/28/22 11:54 Nucleated RBC % Not Reportable 02/28/22 11:54 Seg Neutrophils # Man 10.7 K/mm3 (1.8-7.7) H 02/28/22 11:54 Band Neutrophils # 0.2 K/mm3 02/28/22 11:54 Lymphocytes # (Manual) 0.1 K/mm3 (1.2-5.4) L 02/28/22 11:54 Abs React Lymphs (Man) 0.0 K/mm3 02/28/22 11:54 Monocytes # (Manual) 0.3 K/mm3 (0.0-0.8) 02/28/22 11:54 Eosinophils # (Manual) 0.0 K/mm3 (0.0-0.4) 02/28/22 11:54 Basophils # (Manual) 0.0 K/mm3 (0.0-0.1) 02/28/22 11:54 Metamyelocytes # 0.0 K/mm3 02/28/22 11:54 Myelocytes # 0.0 K/mm3 02/28/22 11:54 Promyelocytes # 0.0 K/mm3 02/28/22 11:54 Blast Cells # 0.0 K/mm3 02/28/22 11:54 WBC Morphology Not Reportable 02/28/22 11:54 Hypersegmented Neuts Not Reportable 02/28/22 11:54 Hyposegmented Neuts Not Reportable 02/28/22 11:54 Hypogranular Neuts Not Reportable 02/28/22 11:54 Smudge Cells Not Reportable 02/28/22 11:54 Toxic Granulation Not Reportable 02/28/22 11:54 Toxic Vacuolation Not Reportable 02/28/22 11:54 Dohle Bodies Not Reportable 02/28/22 11:54 Pelger-Huet Anomaly Not Reportable 02/28/22 11:54 Perla Rods Not Reportable 02/28/22 11:54 Platelet Estimate Consistent w auto 02/28/22 11:54 Clumped Platelets Not Reportable 02/28/22 11:54 Plt Clumps, EDTA Not Reportable 02/28/22 11:54 Large Platelets Few 02/28/22 11:54 Giant Platelets Not Reportable 02/28/22 11:54 Platelet Satelliting Not Reportable 02/28/22 11:54 Plt Morphology Comment Not Reportable 02/28/22 11:54 RBC Morphology Normal 02/28/22 11:54 Dimorphic RBCs Not Reportable 02/28/22 11:54 Polychromasia Not Reportable 02/28/22 11:54 Hypochromasia Not Reportable 02/28/22 11:54 Poikilocytosis Not Reportable 02/28/22 11:54 Anisocytosis Not Reportable 02/28/22 11:54 Microcytosis Not Reportable 02/28/22 11:54 Macrocytosis Not Reportable 02/28/22 11:54 Spherocytes Not Reportable 02/28/22 11:54 Pappenheimer Bodies Not Reportable 02/28/22 11:54 Sickle Cells Not Reportable 02/28/22 11:54 Target Cells Not Reportable 02/28/22 11:54 Tear Drop Cells Not Reportable 02/28/22 11:54 Ovalocytes Not Reportable 02/28/22 11:54 Helmet Cells Not Reportable 02/28/22 11:54 Montoya-Medora Bodies Not Reportable 02/28/22 11:54 [place] Rings Not Reportable 02/28/22 11:54 Jose Cells Not Reportable 02/28/22 11:54 Bite Cells Not Reportable 02/28/22 11:54 Crenated Cell Not Reportable 02/28/22 11:54 Elliptocytes Not Reportable 02/28/22 11:54 Acanthocytes (Spur) Not Reportable 02/28/22 11:54 Rouleaux Not Reportable 02/28/22 11:54 Hemoglobin C Crystals Not Reportable 02/28/22 11:54 Schistocytes Not Reportable 02/28/22 11:54 Malaria parasites Not Reportable 02/28/22 11:54 Josef Bodies Not Reportable 02/28/22 11:54 Hem Pathologist Commnt No 02/28/22 11:54 PT 15.9 Sec. (12.2-14.9) H 02/28/22 13:00 INR 1.14 (0.87-1.13) H 02/28/22 13:00 APTT 24.7 Sec. (24.2-36.6) 02/28/22 13:00 ABG pH 7.211 pH Units (7.350-7.450) L 02/28/22 12:18 ABG pCO2 30.8 mm Hg 02/28/22 12:18 ABG pO2 267.8 mm Hg (80.0-90.0) H 02/28/22 12:18 ABG HCO3 12.1 mmol/L (20.0-26.0) L 02/28/22 12:18 ABG O2 Saturation 99.4 % (95.0-99.0) H 02/28/22 12:18 ABG O2 Content 22.8 (0.0-44) 02/28/22 12:18 ABG Base Excess -14.3 mmol/L (-2.0-3.0) L 02/28/22 12:18 ABG Hemoglobin 16.2 gm/dl (14.0-18.0) 02/28/22 12:18 ABG Carboxyhemoglobin 1.4 % (0.0-5.0) 02/28/22 12:18 ABG Methemoglobin 0.7 % (0.0-1.5) 02/28/22 12:18 VBG pH 7.116 (7.320-7.420) L* 02/28/22 11:54 Oxyhemoglobin 97.4 % (95.0-99.0) 02/28/22 12:18 FiO2 100 % 02/28/22 12:18 Sodium 149 mmol/L (137-145) H 03/02/22 04:27 Potassium 4.9 mmol/L (3.6-5.0) 03/02/22 04:27 Chloride 120.4 mmol/L (98-107) H 03/02/22 04:27 Carbon Dioxide 14 mmol/L (22-30) L 03/02/22 04:27 Anion Gap 20 mmol/L 03/02/22 04:27 BUN 80 mg/dL (9-20) H 03/02/22 04:27 Creatinine 5.2 mg/dL (0.8-1.3) H 03/02/22 04:27 Estimated GFR 14 ml/min 03/02/22 04:27 BUN/Creatinine Ratio 15 % 03/02/22 04:27 Glucose 380 mg/dL (75-100) H 03/02/22 04:27 POC Glucose 378 mg/dL (70-105) H 03/02/22 08:42 Hemoglobin A1c 12.5 % (4-6) H 03/01/22 14:46 Lactic Acid 4.70 mmol/L (0.7-2.0) H* 02/28/22 23:08 Calcium 6.8 mg/dL (8.4-10.2) L 03/02/22 04:27 Phosphorus 3.60 mg/dL (2.5-4.5) D 03/02/22 04:27 Magnesium 3.20 mg/dL (1.7-2.3) H 02/28/22 23:08 Total Bilirubin 0.20 mg/dL (0.1-1.2) 02/28/22 15:27 AST 47 units/L (5-40) H 02/28/22 15:27 ALT 22 units/L (7-56) 02/28/22 15:27 Alkaline Phosphatase 173 units/L (35-129) H 02/28/22 15:27 Ammonia 66.0 umol/L (25-60) H 02/28/22 11:54 Total Creatine Kinase 86157 units/L (55-170) H 03/02/22 04:27 Troponin T 0.014 ng/mL (0.00-0.029) 02/28/22 15:27 Total Protein 6.3 g/dL (6.3-8.2) 02/28/22 15:27 Albumin 3.8 g/dL (3.9-5) L 02/28/22 15:27 Albumin/Globulin Ratio 1.5 % 02/28/22 15:27 TSH 1.170 mlU/mL (0.270-4.200) 02/28/22 14:53 Free T4 1.32 ng/dL (0.76-1.46) 02/28/22 14:53 Urine Color Straw (Yellow) 02/28/22 Unknown Urine Turbidity Slightly cloudy (Clear) 02/28/22 Unknown Specific [place] (Man) 1.010 (1.003-1.030) 02/28/22 Unknown Ur Protein (Man) 2+ mg/dL (Negative) 02/28/22 Unknown Ur Ketones (Man) 5 (Negative) 02/28/22 Unknown Urine Bilirubin (Man) Negative (Negative) 02/28/22 Unknown Urine WBC (Auto) 9.0 /HPF (0.0-6.0) H 02/28/22 Unknown Urine RBC (Auto) 2.0 /HPF (0.0-6.0) 02/28/22 Unknown U Epithel Cells (Auto) 12.0 /HPF (0-13.0) 02/28/22 Unknown Urine Bacteria (Auto) 1+ /HPF (Negative) 02/28/22 Unknown Urine RBC (Manual) 3+ (Negative) 02/28/22 Unknown Urine Mucus Few /HPF 02/28/22 Unknown Urine Eosinophils Rare (None Seen) 03/01/22 15:45 Urine Creatinine 185.1 mg/dL (0.1-20.0) H 03/01/22 15:45 Urine Creatinine 187.2 mg/dL (0.1-20.0) H 03/01/22 15:45 Protein/Creatinin Ratio 3.13 03/01/22 15:45 Urine Sodium 68 mmol/L 03/01/22 15:45 Urine Urea Nitrogen 179 03/01/22 15:45 Urine Total Protein 580 mg/dL (5-11.8) H 03/01/22 15:45 Random Vancomycin 17.3 ug/mL (0-40.0) 03/02/22 04:27 Hepatitis A IgM Ab Non-reactive (NonReactive) 03/02/22 04:27 Hep Bs Antigen Non-reactive (Negative) 03/02/22 04:27 Hep B Core IgM Ab Non-reactive (NonReactive) 03/02/22 04:27 Hepatitis C Antibody Non-reactive (NonReactive) 03/02/22 04:27 Microbiology: Microbiology 02/28/22 11:54 Peripheral/Venous Blood Culture - Preliminary NO GROWTH AFTER 24 HOURS 02/28/22 11:54 Peripheral/Venous Blood Culture - Preliminary NO GROWTH AFTER 24 HOURS Mejias/IV: Voiding Method Indwelling Catheter Active Medications - Current Medications Current Medications: Generic Name Dose Route Start Last Admin Trade Name Freq PRN Reason Stop Dose Admin Acetaminophen 650 mg 02/28/22 21:22 Acetaminophen 325 Mg Tab PO Q4H PRN Pain MILD(1-3)/Fever >100.5/SHIN Amlodipine Besylate 5 mg 03/03/22 10:00 Amlodipine 5 Mg Tab FEEDTUBE QDAY JOB Amlodipine Besylate 5 mg 03/02/22 12:00 Amlodipine 5 Mg Tab FEEDTUBE 03/02/22 16:00 ONCE@1200 JOB Aspirin 81 mg 03/02/22 10:00 03/02/22 09:57 Aspirin 81 Mg Tab Chew PO 81 mg QDAY JOB Administration Atorvastatin Calcium 40 mg 03/02/22 10:00 03/02/22 09:58 Atorvastatin 40 Mg Tab PO 40 mg QDAY JOB Administration Dextrose 50 ml 03/01/22 17:32 Dextrose 50% In Water (25gm) 50 Ml Syringe IV Q30MIN PRN Hypoglycemia Protocol Famotidine 20 mg 03/03/22 10:00 Famotidine 20 Mg Tab FEEDTUBE QDAY JOB Hydralazine HCl 10 mg 03/01/22 15:00 03/01/22 19:56 Hydralazine 20 Mg/1 Ml Inj IV 10 mg Q4HR PRN Administration Hypertension Hydralazine HCl 10 mg 03/02/22 14:00 Hydralazine 10 Mg Tab FEEDTUBE Q8HR JOB Dextrose/Sodium Chloride 1,000 mls @ 125 mls/hr 03/01/22 20:00 03/02/22 04:58 D5/0.45ns IV 125 mls/hr DIRECT JOB Administration Insulin Glargine 20 units 03/02/22 22:00 Insulin Glargine 100 Units/Ml SUB-Q QHS [facility] Insulin Human Regular 0 units 03/01/22 18:00 03/02/22 05:32 Insulin Regular, Human 100 Units/1 Ml SUB-Q 6 units Q6H JOB Administration Protocol Insulin Human Regular 10 units 03/02/22 10:00 03/02/22 09:57 Insulin Regular, Human 100 Units/1 Ml IV 03/02/22 14:00 10 units ONCE@1000 JOB Administration Metoclopramide HCl 5 mg 02/28/22 21:22 Metoclopramide 10 Mg/2 Ml Inj IV Q6H PRN Nausea And Vomiting Mirtazapine 15 mg 03/02/22 12:00 Mirtazapine 15 Mg Tab FEEDTUBE DAILY JOB Ondansetron HCl 4 mg 02/28/22 21:22 Ondansetron 4 Mg/2 Ml Inj IV Q3H PRN Nausea And Vomiting Oxycodone/Acetaminophen 1 tab 02/28/22 21:22 Oxycodone /Acetaminophen 5-325mg Tab PO Q6H PRN Pain, Moderate (4-6) Sodium Chloride 10 ml 02/28/22 17:08 Sodium Chloride 0.9% 10 Ml Flush Syringe IV PRN PRN LINE FLUSH Sodium Chloride 10 ml 02/28/22 22:00 03/02/22 09:58 Sodium Chloride 0.9% 10 Ml Flush Syringe IV 10 ml BID JOB Administration Nutrition/Malnutrition Assess - Dietary Evaluation Nutrition/Malnutrition Findings: Nutrition Notes Start: 03/01/22 15:08 Freq: Status: Active Protocol: Document 03/02/22 09:32 AYAKA (Rec: 03/02/22 10:23 YAAKA [id number]) Nutrition Notes Need for Assessment generated from: MD Order Initial or Follow up Assessment Current Diagnosis Acute Kidney Injury,CKD(stage I-IV),Diabetes,Sepsis, Hypertension,Respiratory Failure,Malnutrition, Hyperlipidemia Other Pertinent Diagnosis DKA, Metabolic Encephalopathy, Dehydration, UTI, Rabdomyolisis, ... Current Diet NPO (since 02/28 21:22), TF- Nepro w/CARBSTEADY @ 25 ml/hr (from L 03/02). Labs/Tests 03/02: Na 149, Cl 120.4, CO2 14, BUN 80, Crea 5.2, Glu 380, Ca 6.8. Pertinent Medications 03/02: D5/0.45ns @ 125ml/hr, Humulin R 6U, others nutritionally unremarkable. Height 3 ft 5 in Weight 72.1 kg [place] Body Weight (kg) -3.63 BMI 66.4 Weight change and time frame No body weight change reported in 1 day. Ht before [place]-BKA= 4'11" Wt before [place]-BKA= 84 Kg Adjusted BMI= 37.3 Kg/m2. Weight Status Obese Subjective/Other Information RD consult for write/manage TF assessment. Pt continue NPO. I will prescribe TF to provide Pt with energy/protein needs during LOS. Pt is on Nasal Cannula, O2 saturation @ 100%, according to Physical Assessment History notes Pt presents bilateral-BKA, according to Progress notes: Ht before [place]-BKA= 4'11", Wt before [place]-BKA= 84 Kg, Adjusted BMI= 37.3 Kg/m2. Pt failed bedside swallow evaluation on 03/01, according to Swallow Screen notes. Pt has missing teeth, according to Physical Assessment History notes. Percent of energy/protein needs met: Pt continue NPO. Prescribed TF-Nepro w/ CARBSTEADY @ 25 ml/hr provides for energy/protein needs (1, 082 Kcal/49 g) during LOS, 100 % Kcal; 94% AA. Burn Absent Trauma Absent GI Symptoms None Difficulty In Swallowing Food Allergy No Skin Integrity/Comment Assessment WNL. 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 As Evidenced by Signs and Symptoms Pt failed bedside swallow evaluation on 03/01, according to Swallow Screen notes. Is patient on ventilator? No Is Patient Ambulatory and/or Out of Bed No REE-([facility]-confined to bed) [phone] Kcal/Kg value to use for calculation 15 Approximate Energy Requirements Using 1082 kcal/Kg Calculation Used for Recommendations Kcal/kg Additional Notes Protein: 0.8-1.2 g/Kg AdjBW; 52-78 g/day. Fluids: 1 ml/Kcal, or as per MD. Nutrition Intervention Nutrition Support: Start TF-Nepro w/CARBSTEADY @ 25 ml/hr. Flush: 100 ml water Q 4 hr, or as per MD. Kcal 1,082 Protein (gm) 49 Carbohydrates (gm) 97 Fat (gm) 58 Fluid (mL) 437 Fiber (gm) 8 % RDI: 100% Kcal; 94% AA. Goal #1 Provide at least 75% of energy /protein needs through Enteral Feeding during LOS. Goal #2 Adjust the dietary intervention to better serve Pt's needs and clinical conditions during LOS. Follow-Up By: 03/03/22 Additional Comments Start monitoring TF tolerance and BM. <MAICOL MALIK - Last Filed: 03/03/22 14:27> History Interval history: I saw and evaluated the patient. Discussed with the nurse practitioner and agree with their findings and plan as documented in this note. Hospitalist Physical - Constitutional Vitals: Temp Pulse Resp BP Pulse Ox 99 F 106 H 27 H 154/88 94 03/03/22 12:00 03/03/22 13:31 03/03/22 13:31 03/03/22 13:31 03/03/22 13:31 HEART Score - HEART Score Troponin: Troponin T 0.014 ng/mL (0.00-0.029) 02/28/22 15:27 Results - Labs CBC & Chem 7: 03/03/22 04:10 03/03/22 07:28 Labs: Laboratory Last Values WBC 10.0 K/mm3 (4.5-11.0) 03/03/22 04:10 RBC 4.81 M/mm3 (3.65-5.03) 03/03/22 04:10 Hgb 12.5 gm/dl (11.8-15.2) 03/03/22 04:10 Hct 39.6 % (35.5-45.6) 03/03/22 04:10 MCV 82 fl (84-94) L 03/03/22 04:10 MCH 26 pg (28-32) L 03/03/22 04:10 MCHC 32 % (32-34) 03/03/22 04:10 RDW 17.3 % (13.2-15.2) H 03/03/22 04:10 Plt Count 116 K/mm3 (140-440) L 03/03/22 04:10 Add Manual Diff Complete 02/28/22 11:54 Total Counted 100 02/28/22 11:54 Seg Neuts % (Manual) 94.0 % (40.0-70.0) H 02/28/22 11:54 Band Neutrophils % 2.0 % 02/28/22 11:54 Lymphocytes % (Manual) 1.0 % (13.4-35.0) L 02/28/22 11:54 Reactive Lymphs % (Man) 0 % 02/28/22 11:54 Monocytes % (Manual) 3.0 % (0.0-7.3) 02/28/22 11:54 Eosinophils % (Manual) 0 % (0.0-4.3) 02/28/22 11:54 Basophils % (Manual) 0 % (0.0-1.8) 02/28/22 11:54 Metamyelocytes % 0 % 02/28/22 11:54 Myelocytes % 0 % 02/28/22 11:54 Promyelocytes % 0 % 02/28/22 11:54 Blast Cells % 0 % 02/28/22 11:54 Nucleated RBC % Not Reportable 02/28/22 11:54 Seg Neutrophils # Man 10.7 K/mm3 (1.8-7.7) H 02/28/22 11:54 Band Neutrophils # 0.2 K/mm3 02/28/22 11:54 Lymphocytes # (Manual) 0.1 K/mm3 (1.2-5.4) L 02/28/22 11:54 Abs React Lymphs (Man) 0.0 K/mm3 02/28/22 11:54 Monocytes # (Manual) 0.3 K/mm3 (0.0-0.8) 02/28/22 11:54 Eosinophils # (Manual) 0.0 K/mm3 (0.0-0.4) 02/28/22 11:54 Basophils # (Manual) 0.0 K/mm3 (0.0-0.1) 02/28/22 11:54 Metamyelocytes # 0.0 K/mm3 02/28/22 11:54 Myelocytes # 0.0 K/mm3 02/28/22 11:54 Promyelocytes # 0.0 K/mm3 02/28/22 11:54 Blast Cells # 0.0 K/mm3 02/28/22 11:54 WBC Morphology Not Reportable 02/28/22 11:54 Hypersegmented Neuts Not Reportable 02/28/22 11:54 Hyposegmented Neuts Not Reportable 02/28/22 11:54 Hypogranular Neuts Not Reportable 02/28/22 11:54 Smudge Cells Not Reportable 02/28/22 11:54 Toxic Granulation Not Reportable 02/28/22 11:54 Toxic Vacuolation Not Reportable 02/28/22 11:54 Dohle Bodies Not Reportable 02/28/22 11:54 Pelger-Huet Anomaly Not Reportable 02/28/22 11:54 Perla Rods Not Reportable 02/28/22 11:54 Platelet Estimate Consistent w auto 02/28/22 11:54 Clumped Platelets Not Reportable 02/28/22 11:54 Plt Clumps, EDTA Not Reportable 02/28/22 11:54 Large Platelets Few 02/28/22 11:54 Giant Platelets Not Reportable 02/28/22 11:54 Platelet Satelliting Not Reportable 02/28/22 11:54 Plt Morphology Comment Not Reportable 02/28/22 11:54 RBC Morphology Normal 02/28/22 11:54 Dimorphic RBCs Not Reportable 02/28/22 11:54 Polychromasia Not Reportable 02/28/22 11:54 Hypochromasia Not Reportable 02/28/22 11:54 Poikilocytosis Not Reportable 02/28/22 11:54 Anisocytosis Not Reportable 02/28/22 11:54 Microcytosis Not Reportable 02/28/22 11:54 Macrocytosis Not Reportable 02/28/22 11:54 Spherocytes Not Reportable 02/28/22 11:54 Pappenheimer Bodies Not Reportable 02/28/22 11:54 Sickle Cells Not Reportable 02/28/22 11:54 Target Cells Not Reportable 02/28/22 11:54 Tear Drop Cells Not Reportable 02/28/22 11:54 Ovalocytes Not Reportable 02/28/22 11:54 Helmet Cells Not Reportable 02/28/22 11:54 Montoya-Medora Bodies Not Reportable 02/28/22 11:54 [place] Rings Not Reportable 02/28/22 11:54 Jose Cells Not Reportable 02/28/22 11:54 Bite Cells Not Reportable 02/28/22 11:54 Crenated Cell Not Reportable 02/28/22 11:54 Elliptocytes Not Reportable 02/28/22 11:54 Acanthocytes (Spur) Not Reportable 02/28/22 11:54 Rouleaux Not Reportable 02/28/22 11:54 Hemoglobin C Crystals Not Reportable 02/28/22 11:54 Schistocytes Not Reportable 02/28/22 11:54 Malaria parasites Not Reportable 02/28/22 11:54 Josef Bodies Not Reportable 02/28/22 11:54 Hem Pathologist Commnt No 02/28/22 11:54 PT 15.9 Sec. (12.2-14.9) H 02/28/22 13:00 INR 1.14 (0.87-1.13) H 02/28/22 13:00 APTT 24.7 Sec. (24.2-36.6) 02/28/22 13:00 ABG pH 7.211 pH Units (7.350-7.450) L 02/28/22 12:18 ABG pCO2 30.8 mm Hg 02/28/22 12:18 ABG pO2 267.8 mm Hg (80.0-90.0) H 02/28/22 12:18 ABG HCO3 12.1 mmol/L (20.0-26.0) L 02/28/22 12:18 ABG O2 Saturation 99.4 % (95.0-99.0) H 02/28/22 12:18 ABG O2 Content 22.8 (0.0-44) 02/28/22 12:18 ABG Base Excess -14.3 mmol/L (-2.0-3.0) L 02/28/22 12:18 ABG Hemoglobin 16.2 gm/dl (14.0-18.0) 02/28/22 12:18 ABG Carboxyhemoglobin 1.4 % (0.0-5.0) 02/28/22 12:18 ABG Methemoglobin 0.7 % (0.0-1.5) 02/28/22 12:18 VBG pH 7.116 (7.320-7.420) L* 02/28/22 11:54 Oxyhemoglobin 97.4 % (95.0-99.0) 02/28/22 12:18 FiO2 100 % 02/28/22 12:18 Sodium 139 mmol/L (137-145) 03/03/22 07:28 Potassium 3.8 mmol/L (3.6-5.0) 03/03/22 07:28 Chloride 100.4 mmol/L (98-107) 03/03/22 07:28 Carbon Dioxide 18 mmol/L (22-30) L 03/03/22 07:28 Anion Gap 24 mmol/L 03/03/22 07:28 BUN 50 mg/dL (9-20) H 03/03/22 07:28 Creatinine 5.0 mg/dL (0.8-1.3) H 03/03/22 07:28 Estimated GFR 14 ml/min 03/03/22 07:28 BUN/Creatinine Ratio 10 % 03/03/22 07:28 Glucose 396 mg/dL (75-100) H 03/03/22 07:28 POC Glucose 339 mg/dL (70-105) H 03/03/22 06:40 Hemoglobin A1c 12.5 % (4-6) H 03/01/22 14:46 Lactic Acid 4.70 mmol/L (0.7-2.0) H* 02/28/22 23:08 Calcium 7.0 mg/dL (8.4-10.2) L 03/03/22 07:28 Phosphorus 3.60 mg/dL (2.5-4.5) D 03/02/22 04:27 Magnesium 3.20 mg/dL (1.7-2.3) H 02/28/22 23:08 Total Bilirubin 0.20 mg/dL (0.1-1.2) 02/28/22 15:27 AST 47 units/L (5-40) H 02/28/22 15:27 ALT 22 units/L (7-56) 02/28/22 15:27 Alkaline Phosphatase 173 units/L (35-129) H 02/28/22 15:27 Ammonia 66.0 umol/L (25-60) H 02/28/22 11:54 Total Creatine Kinase 49162 units/L (55-170) H 03/03/22 07:28 Troponin T 0.014 ng/mL (0.00-0.029) 02/28/22 15:27 Total Protein 6.3 g/dL (6.3-8.2) 02/28/22 15:27 Albumin 3.8 g/dL (3.9-5) L 02/28/22 15:27 Albumin/Globulin Ratio 1.5 % 02/28/22 15:27 Phospholipids 178 mg/dL (151-264) 02/28/22 11:54 TSH 1.170 mlU/mL (0.270-4.200) 02/28/22 14:53 Free T4 1.32 ng/dL (0.76-1.46) 02/28/22 14:53 Urine Color Straw (Yellow) 02/28/22 Unknown Urine Turbidity Slightly cloudy (Clear) 02/28/22 Unknown Specific [place] (Man) 1.010 (1.003-1.030) 02/28/22 Unknown Ur Protein (Man) 2+ mg/dL (Negative) 02/28/22 Unknown Ur Ketones (Man) 5 (Negative) 02/28/22 Unknown Urine Bilirubin (Man) Negative (Negative) 02/28/22 Unknown Urine WBC (Auto) 9.0 /HPF (0.0-6.0) H 02/28/22 Unknown Urine RBC (Auto) 2.0 /HPF (0.0-6.0) 02/28/22 Unknown U Epithel Cells (Auto) 12.0 /HPF (0-13.0) 02/28/22 Unknown Urine Bacteria (Auto) 1+ /HPF (Negative) 02/28/22 Unknown Urine RBC (Manual) 3+ (Negative) 02/28/22 Unknown Urine Mucus Few /HPF 02/28/22 Unknown Urine Eosinophils Rare (None Seen) 03/01/22 15:45 Urine Creatinine 185.1 mg/dL (0.1-20.0) H 03/01/22 15:45 Urine Creatinine 187.2 mg/dL (0.1-20.0) H 03/01/22 15:45 Protein/Creatinin Ratio 3.13 03/01/22 15:45 Urine Sodium 68 mmol/L 03/01/22 15:45 Urine Urea Nitrogen 179 03/01/22 15:45 Urine Total Protein 580 mg/dL (5-11.8) H 03/01/22 15:45 Random Vancomycin 17.3 ug/mL (0-40.0) 03/02/22 04:27 Hepatitis A IgM Ab Non-reactive (NonReactive) 03/02/22 04:27 Hep Bs Antigen Non-reactive (Negative) 03/02/22 04:27 Hep B Core IgM Ab Non-reactive (NonReactive) 03/02/22 04:27 Hepatitis C Antibody Non-reactive (NonReactive) 03/02/22 04:27 Microbiology: Microbiology 02/28/22 11:54 Peripheral/Venous Blood Culture - Preliminary NO GROWTH AFTER 72 HOURS 02/28/22 11:54 Peripheral/Venous Blood Culture - Preliminary NO GROWTH AFTER 72 HOURS 02/28/22 Unknown Urine,Clean Catch Urine Culture - Preliminary NO GROWTH AFTER 24 HOURS Mejias/IV: Voiding Method Indwelling Catheter Active Medications - Current Medications Current Medications: Generic Name Dose Route Start Last Admin Trade Name Freq PRN Reason Stop Dose Admin Acetaminophen 650 mg 02/28/22 21:22 03/03/22 05:47 Acetaminophen 325 Mg Tab PO 650 mg Q4H PRN Administration Pain MILD(1-3)/Fever >100.5/SHIN Amlodipine Besylate 5 mg 03/03/22 10:00 03/03/22 10:20 Amlodipine 5 Mg Tab FEEDTUBE 5 mg QDAY JOB Administration Aspirin 81 mg 03/02/22 10:00 03/03/22 10:21 Aspirin 81 Mg Tab Chew PO 81 mg QDAY JOB Administration Atorvastatin Calcium 40 mg 03/02/22 10:00 03/03/22 10:21 Atorvastatin 40 Mg Tab PO 40 mg QDAY JOB Administration Dextrose 50 ml 03/01/22 17:32 Dextrose 50% In Water (25gm) 50 Ml Syringe IV Q30MIN PRN Hypoglycemia Protocol Famotidine 20 mg 03/03/22 10:00 03/03/22 10:21 Famotidine 20 Mg Tab FEEDTUBE 20 mg QDAY JOB Administration Hydralazine HCl 10 mg 03/01/22 15:00 03/03/22 04:04 Hydralazine 20 Mg/1 Ml Inj IV 10 mg Q4HR PRN Administration Hypertension Hydralazine HCl 10 mg 03/02/22 14:00 03/03/22 13:00 Hydralazine 10 Mg Tab FEEDTUBE 10 mg Q8HR JOB Administration Sodium Chloride 1,000 mls @ 125 mls/hr 03/02/22 13:00 03/03/22 13:00 Nacl 0.45% 1000 Ml IV 125 mls/hr DIRECT JOB Administration Insulin Glargine 20 units 03/02/22 22:00 03/02/22 22:34 Insulin Glargine 100 Units/Ml SUB-Q 20 units QHS JOB Administration Insulin Human Regular 0 units 03/01/22 18:00 03/03/22 12:56 Insulin Regular, Human 100 Units/1 Ml SUB-Q 10 units Q6H JOB Administration Protocol Metoclopramide HCl 5 mg 02/28/22 21:22 Metoclopramide 10 Mg/2 Ml Inj IV Q6H PRN Nausea And Vomiting Mirtazapine 15 mg 03/02/22 12:00 03/03/22 10:22 Mirtazapine 15 Mg Tab FEEDTUBE 15 mg DAILY JOB Administration Ondansetron HCl 4 mg 02/28/22 21:22 Ondansetron 4 Mg/2 Ml Inj IV Q3H PRN Nausea And Vomiting Oxycodone/Acetaminophen 1 tab 02/28/22 21:22 Oxycodone /Acetaminophen 5-325mg Tab PO Q6H PRN Pain, Moderate (4-6) Sodium Chloride 10 ml 02/28/22 17:08 Sodium Chloride 0.9% 10 Ml Flush Syringe IV PRN PRN LINE FLUSH Sodium Chloride 10 ml 02/28/22 22:00 03/03/22 10:23 Sodium Chloride 0.9% 10 Ml Flush Syringe IV 10 ml BID JOB Administration Nutrition/Malnutrition Assess - Dietary Evaluation Nutrition/Malnutrition Findings: Nutrition Notes Start: 03/01/22 15:08 Freq: Status: Active Protocol: Document 03/02/22 09:32 AYAKA (Rec: 03/02/22 10:23 AYAKA [id number]) Nutrition Notes Need for Assessment generated from: MD Order Initial or Follow up Assessment Current Diagnosis Acute Kidney Injury,CKD(stage I-IV),Diabetes,Sepsis, Hypertension,Respiratory Failure,Malnutrition, Hyperlipidemia Other Pertinent Diagnosis DKA, Metabolic Encephalopathy, Dehydration, UTI, Rabdomyolisis, ... Current Diet NPO (since 02/28 21:22), TF- Nepro w/CARBSTEADY @ 25 ml/hr (from L 03/02). Labs/Tests 03/02: Na 149, Cl 120.4, CO2 14, BUN 80, Crea 5.2, Glu 380, Ca 6.8. Pertinent Medications 03/02: D5/0.45ns @ 125ml/hr, Humulin R 6U, others nutritionally unremarkable. Height 3 ft 5 in Weight 72.1 kg [place] Body Weight (kg) -3.63 BMI 66.4 Weight change and time frame No body weight change reported in 1 day. Ht before [place]-BKA= 4'11" Wt before [place]-BKA= 84 Kg Adjusted BMI= 37.3 Kg/m2. Weight Status Obese Subjective/Other Information RD consult for write/manage TF assessment. Pt continue NPO. I will prescribe TF to provide Pt with energy/protein needs during LOS. Pt is on Nasal Cannula, O2 saturation @ 100%, according to Physical Assessment History notes Pt presents bilateral-BKA, according to Progress notes: Ht before [place]-BKA= 4'11", Wt before [place]-BKA= 84 Kg, Adjusted BMI= 37.3 Kg/m2. Pt failed bedside swallow evaluation on 03/01, according to Swallow Screen notes. Pt has missing teeth, according to Physical Assessment History notes. Percent of energy/protein needs met: Pt continue NPO. Prescribed TF-Nepro w/ CARBSTEADY @ 25 ml/hr provides for energy/protein needs (1, 082 Kcal/49 g) during LOS, 100 % Kcal; 94% AA. Burn Absent Trauma Absent GI Symptoms None Difficulty In Swallowing Food Allergy No Skin Integrity/Comment Assessment WNL. 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 As Evidenced by Signs and Symptoms Pt failed bedside swallow evaluation on 03/01, according to Swallow Screen notes. Is patient on ventilator? No Is Patient Ambulatory and/or Out of Bed No REE-([facility]-confined to bed) 1279.428 Kcal/Kg value to use for calculation 15 Approximate Energy Requirements Using 1082 kcal/Kg Calculation Used for Recommendations Kcal/kg Additional Notes Protein: 0.8-1.2 g/Kg AdjBW; 52-78 g/day. Fluids: 1 ml/Kcal, or as per MD. Nutrition Intervention Nutrition Support: Start TF-Nepro w/CARBSTEADY @ 25 ml/hr. Flush: 100 ml water Q 4 hr, or as per MD. Kcal 1,082 Protein (gm) 49 Carbohydrates (gm) 97 Fat (gm) 58 Fluid (mL) 437 Fiber (gm) 8 % RDI: 100% Kcal; 94% AA. Goal #1 Provide at least 75% of energy /protein needs through Enteral Feeding during LOS. Goal #2 Adjust the dietary intervention to better serve Pt's needs and clinical conditions during LOS. Follow-Up By: 03/03/22 Additional Comments Start monitoring TF tolerance and BM.
[2022-03-02] MEDS ORDERED: LACTATED RINGERS 1,000 ML IV SCH (12:45)
[2022-03-02] MEDS ORDERED: HEPARIN/NS 5000 UNIT/500ML 500 ML IR ONE (12:56)
[2022-03-02] MEDS ORDERED: LIDOCAINE (1%) 10 MG/1 ML VIAL 20 ML MDV ONE (12:56)
[2022-03-02] MEDS ORDERED: HEPARIN 10,000 UNITS/10 ML VIAL ONE (12:56)
--- NOTE | 2022-03-02 13:24 | Operative Report ---
Operative Report Operative Report: Exam: Ultrasound and fluoroscopic guided placement of Vas-Cath Clinical indication: Patient with acute renal failure superimposed on chronic renal failure requiring dialysis access Date: 03/02/2022 Procedure: Following an explanation of the risk, benefits and alternatives; written informed consent was obtained for the patient's next of kin. The patient was brought to the angiographic suite and placed in supine position on the exam table. Initial ultrasound evaluation of the neck demonstrated a patent right internal jugular vein. The patient's right neck and chest wall were prepped and draped in the usual sterile fashion. 2% lidocaine was used for anesthesia. Under ultrasound guidance, the right internal jugular vein was cannulated with a 7 cm 18-gauge needle. A 0.035 guidewire was advanced into the IVC under fluoroscopy to document intravenous positioning and to anchor the guidewire. The needle was removed and following serial dilation over the guidewire under fluoroscopy, a 15 cm dialysis catheter was advanced over the guidewire under fluoroscopy and positioned in the proximal right atrium. The guidewire was removed. Both ports flushed and aspirated easily and were then locked with appropriate volumes of heparin. The catheter was securely fastened to the skin surface using 2-0 nylon suture and a sterile dressing applied. Patient tolerated the procedure well. There were no immediate postprocedure complications. No sedation was utilized secondary to patient's obtunded status. Continuous cardiopulmonary monitoring was utilized. Impression: Ultrasound and fluoroscopic guided placement of Vas-Cath via the right internal jugular vein
[2022-03-02] MEDS: SODIUM CHLORIDE 0.45% 1000 ML 1,000 ML IV SCH ×2 (13:46→22:34)
--- NOTE | 2022-03-02 14:25 | XRay Report ---
ABDOMEN 1 VIEW(S) INDICATION / CLINICAL INFORMATION: dobhoff placement. COMPARISON: Earlier today FINDINGS: TUBES / LINES: Dobbhoff tube tip remains in the proximal mid stomach and should be advanced at least 10 cm into the duodenum. BOWEL GAS PATTERN: No significant abnormality. FREE AIR / EXTRALUMINAL GAS: None seen. ADDITIONAL FINDINGS: No significant additional findings. IMPRESSION: 1. DHT as above. Signer Name: Amol Baker MD Signed: 03/02/2022 2:21 PM Workstation Name: [id number]
--- NOTE | 2022-03-02 15:22 | XRay Report ---
ABDOMEN 1 VIEW 03/02/2022 3:03 PM INDICATION / CLINICAL INFORMATION: dobhoff placement. COMPARISON: Earlier same day FINDINGS: TUBES / LINES: Weighted enteric feeding tube has been advanced into the region of the distal stomach. Partially imaged central venous catheter at the cavoatrial junction. BOWEL GAS PATTERN: No significant abnormality. FREE AIR / EXTRALUMINAL GAS: None. ADDITIONAL FINDINGS: No significant additional findings. IMPRESSION: 1. Weighted enteric feeding tube has been advanced to the distal stomach, possibly proximal duodenum. If transpyloric positioning is desired, recommend further advancement and repeat imaging. Signer Name: Gavino Arita MD Signed: 03/02/2022 3:18 PM Workstation Name: [id number]
[2022-03-02] MEDS: hydrALAZINE 10 MG TAB FEEDTUBE SCH ×2 (15:40→22:35)
[2022-03-02] MEDS: MIRTAZAPINE 15 MG TAB FEEDTUBE SCH (15:40)
[2022-03-02] MEDS: hydrALAZINE 20 MG/1 ML INJ IV PRN (16:35)
[2022-03-02 17:21] LABS: Calcium 7.1 mg/dL (8.4-10.2)
[2022-03-02] MEDS: INSULIN GLARGINE 100 UNITS/ML SUB-Q SCH (22:34)
[2022-03-02] MEDS: ACETAMINOPHEN 325 MG TAB PO PRN (22:35)
[2022-03-02 23:28] LABS: Calcium 7.5 mg/dL (8.4-10.2)
[2022-03-03] MEDS: INSULIN REGULAR, HUMAN 100 UNITS/1 ML SUB-Q SCH ×5 (00:24→23:45)
[2022-03-03] MEDS: hydrALAZINE 20 MG/1 ML INJ IV PRN (04:04)
[2022-03-03] MEDS: SODIUM CHLORIDE 0.45% 1000 ML 1,000 ML IV SCH ×3 (04:06→20:46)
[2022-03-03 04:42] LABS: Hematocrit 39.6 % (35.5-45.6); Hemoglobin 12.5 gm/dl (11.8-15.2); Mean Corpuscular HGB Conc 32 % (32-34); Mean Corpuscular Volume 82 fl (84-94); Platelet Count 116 K/mm3 (140-440); Red Blood Count 4.81 M/mm3 (3.65-5.03); Red Cell Distribution Width 17.3 % (13.2-15.2)
[2022-03-03] MEDS: hydrALAZINE 10 MG TAB FEEDTUBE SCH ×2 (05:47→13:00)
[2022-03-03] MEDS: ACETAMINOPHEN 325 MG TAB PO PRN (05:47)
[2022-03-03] MEDS ORDERED: amLODIPine 5 MG TAB PO SCH (10:00)
[2022-03-03] MEDS ORDERED: amLODIPine 5 MG TAB FEEDTUBE SCH (10:00)
[2022-03-03] MEDS: FAMOTIDINE 20 MG TAB FEEDTUBE SCH (10:21)
[2022-03-03] MEDS: ASPIRIN 81 MG TAB CHEW PO SCH (10:21)
[2022-03-03] MEDS: MIRTAZAPINE 15 MG TAB FEEDTUBE SCH (10:22)
--- NOTE | 2022-03-03 11:05 | Progress Note ---
Assessment and Plan Acute Renal Failure likely secondary to Prerenal etiology vs ATN secondary to Hypotension, Sepsis, Rhabdo and Dehydration in the setting of Metformin and ARB, may also have underlying CKD from DM and Hypertension Altered Mental Status DKA Diabetes Mellitus Hypertension Hypernatremia Leukocytosis/Sepsis Rhabdomyolysis Plan: status post first HD yesterday HD again today for clearance and volume removal Renal ultrasound reviewed: Slightly atrophic left kidney. No hydronephrosis, mass or stones. CXR done on admisison was clear Rhabdo-on IVF Avoid nephrotoxic agents Renally dose medications Obtain daily weights Strict I/O's daily If determined patient needs hemodialysis upon discharge then will need case m anagement involvement for outpatient HD placement Subjective Date of service: 03/03/22 Principal diagnosis: ARF Interval history: tolerated HD after vascath Objective - Vital Signs Vital signs: Vital Signs - 12hr 03/02/22 03/02/22 03/02/22 23:00 23:30 23:35 Temperature Pulse Rate 108 H Pulse Rate [ From Monitor] Pulse Rate [ 107 H Right Brachial] Respiratory 23 19 Rate Respiratory Rate [ Generalized] Blood Pressure 139/73 130/69 O2 Sat by Pulse 96 98 Oximetry 03/03/22 03/03/22 03/03/22 00:00 00:30 01:00 Temperature Pulse Rate 103 H 104 H 103 H Pulse Rate [ 102 H From Monitor] Pulse Rate [ 102 H 103 H Right Brachial] Respiratory 24 23 23 Rate Respiratory Rate [ Generalized] Blood Pressure 143/77 142/76 136/74 O2 Sat by Pulse 97 98 98 Oximetry 03/03/22 03/03/22 03/03/22 01:30 02:00 02:30 Temperature Pulse Rate 111 H 101 H 100 H Pulse Rate [ From Monitor] Pulse Rate [ 111 H 102 H 104 H Right Brachial] Respiratory 25 H 27 H 17 Rate Respiratory Rate [ Generalized] Blood Pressure 153/78 125/60 154/73 O2 Sat by Pulse 98 97 97 Oximetry 03/03/22 03/03/22 03/03/22 03:00 03:31 04:00 Temperature Pulse Rate 105 H 109 H 103 H Pulse Rate [ From Monitor] Pulse Rate [ Right Brachial] Respiratory 26 H 22 27 H Rate Respiratory 20 Rate [ Generalized] Blood Pressure 162/77 157/78 172/82 O2 Sat by Pulse 96 97 96 Oximetry 03/03/22 03/03/22 03/03/22 04:04 04:31 04:40 Temperature Pulse Rate 118 H Pulse Rate [ 120 H From Monitor] Pulse Rate [ Right Brachial] Respiratory 28 H Rate Respiratory Rate [ Generalized] Blood Pressure 172/82 141/69 O2 Sat by Pulse 98 97 Oximetry 03/03/22 03/03/22 03/03/22 05:00 05:31 05:47 Temperature Pulse Rate 130 H 117 H 117 H Pulse Rate [ From Monitor] Pulse Rate [ Right Brachial] Respiratory 33 H 20 33 H Rate Respiratory Rate [ Generalized] Blood Pressure 161/64 159/63 160/72 O2 Sat by Pulse 96 97 Oximetry 03/03/22 03/03/22 03/03/22 06:00 06:31 06:47 Temperature Pulse Rate 116 H 113 H Pulse Rate [ From Monitor] Pulse Rate [ Right Brachial] Respiratory 34 H 32 H 20 Rate Respiratory Rate [ Generalized] Blood Pressure 148/66 131/58 O2 Sat by Pulse 95 95 Oximetry 03/03/22 03/03/22 03/03/22 07:00 07:31 08:00 Temperature 98.5 F Pulse Rate 117 H 109 H 109 H Pulse Rate [ 111 H From Monitor] Pulse Rate [ Right Brachial] Respiratory 27 H 28 H 30 H Rate Respiratory 20 Rate [ Generalized] Blood Pressure 129/62 119/56 125/67 O2 Sat by Pulse 95 95 95 Oximetry 03/03/22 03/03/22 03/03/22 08:31 09:00 10:20 Temperature Pulse Rate 104 H 108 H 104 H Pulse Rate [ From Monitor] Pulse Rate [ Right Brachial] Respiratory 22 31 H Rate Respiratory Rate [ Generalized] Blood Pressure 125/67 128/69 139/76 O2 Sat by Pulse 95 95 Oximetry - Lab 03/03/22 04:10 03/03/22 07:28 Most recent lab results ABG pH 7.211 pH Units (7.350-7.450) L 02/28/22 12:18 ABG pCO2 30.8 mm Hg 02/28/22 12:18 ABG pO2 267.8 mm Hg (80.0-90.0) H 02/28/22 12:18 ABG HCO3 12.1 mmol/L (20.0-26.0) L 02/28/22 12:18 ABG O2 Saturation 99.4 % (95.0-99.0) H 02/28/22 12:18 Calcium 7.0 mg/dL (8.4-10.2) L 03/03/22 07:28 Phosphorus 3.60 mg/dL (2.5-4.5) D 03/02/22 04:27 Magnesium 3.20 mg/dL (1.7-2.3) H 02/28/22 23:08 Urine Creatinine 185.1 mg/dL (0.1-20.0) H 03/01/22 15:45 Urine Creatinine 187.2 mg/dL (0.1-20.0) H 03/01/22 15:45 Urine Sodium 68 mmol/L 03/01/22 15:45 Urine Total Protein 580 mg/dL (5-11.8) H 03/01/22 15:45 Medications & Allergies - Medications Allergies/Adverse Reactions: Allergies No Known Allergies Allergy (Verified 02/28/22 11:01) Home Medications: Home Medications Medication Instructions Recorded Confirmed Last Taken Type Aspirin [Aspirin BABY CHEW TAB] 81 mg PO QDAY 10/06/19 02/28/22 Unknown History Atorvastatin [Lipitor] 40 mg PO QDAY 10/06/19 02/28/22 Unknown History Valsartan [Diovan] 160 mg PO DAILY #30 tablet 10/08/19 02/28/22 Unknown Rx metFORMIN [Glucophage] 850 mg PO BIDDIAB #60 tablet 10/09/19 02/28/22 Unknown Rx Insulin NPH Hum/Reg Insulin Hm 28 units SQ ACHS 02/28/22 02/28/22 Unknown History Insulin NPH/Regular [NovoLIN 70/30] 25 unit SUB-Q QHS 02/28/22 02/28/22 Unknown History Losartan [Cozaar] 100 mg PO QDAY 02/28/22 02/28/22 Unknown History Mirtazapine [Remeron] 15 mg PO DAILY 02/28/22 02/28/22 Unknown History Trazodone HCl [traZODone] 300 mg PO QHS 02/28/22 02/28/22 Unknown History amLODIPine [Norvasc] 2.5 mg PO DAILY 02/28/22 02/28/22 Unknown History busPIRone [Buspar] 10 mg PO DAILY 02/28/22 02/28/22 Unknown History Active Medications: Generic Name Dose Route Start Last Admin Trade Name Freq PRN Reason Stop Dose Admin Acetaminophen 650 mg 02/28/22 21:22 03/03/22 05:47 Acetaminophen 325 Mg Tab PO 650 mg Q4H PRN Administration Pain MILD(1-3)/Fever >100.5/SHIN Amlodipine Besylate 5 mg 03/03/22 10:00 03/03/22 10:20 Amlodipine 5 Mg Tab FEEDTUBE 5 mg QDAY JOB Administration Aspirin 81 mg 03/02/22 10:00 03/03/22 10:21 Aspirin 81 Mg Tab Chew PO 81 mg QDAY JOB Administration Atorvastatin Calcium 40 mg 03/02/22 10:00 03/03/22 10:21 Atorvastatin 40 Mg Tab PO 40 mg QDAY JOB Administration Dextrose 50 ml 03/01/22 17:32 Dextrose 50% In Water (25gm) 50 Ml Syringe IV Q30MIN PRN Hypoglycemia Protocol Famotidine 20 mg 03/03/22 10:00 03/03/22 10:21 Famotidine 20 Mg Tab FEEDTUBE 20 mg QDAY JOB Administration Hydralazine HCl 10 mg 03/01/22 15:00 03/03/22 04:04 Hydralazine 20 Mg/1 Ml Inj IV 10 mg Q4HR PRN Administration Hypertension Hydralazine HCl 10 mg 03/02/22 14:00 03/03/22 05:47 Hydralazine 10 Mg Tab FEEDTUBE 10 mg Q8HR JOB Administration Sodium Chloride 1,000 mls @ 125 mls/hr 03/02/22 13:00 03/03/22 04:06 Nacl 0.45% 1000 Ml IV 125 mls/hr DIRECT JOB Administration Insulin Glargine 20 units 03/02/22 22:00 03/02/22 22:34 Insulin Glargine 100 Units/Ml SUB-Q 20 units QHS JOB Administration Insulin Human Regular 0 units 03/01/22 18:00 03/03/22 07:04 Insulin Regular, Human 100 Units/1 Ml SUB-Q 6 units Q6H JOB Administration Protocol Metoclopramide HCl 5 mg 02/28/22 21:22 Metoclopramide 10 Mg/2 Ml Inj IV Q6H PRN Nausea And Vomiting Mirtazapine 15 mg 03/02/22 12:00 03/03/22 10:22 Mirtazapine 15 Mg Tab FEEDTUBE 15 mg DAILY JOB Administration Ondansetron HCl 4 mg 02/28/22 21:22 Ondansetron 4 Mg/2 Ml Inj IV Q3H PRN Nausea And Vomiting Oxycodone/Acetaminophen 1 tab 02/28/22 21:22 Oxycodone /Acetaminophen 5-325mg Tab PO Q6H PRN Pain, Moderate (4-6) Sodium Chloride 10 ml 02/28/22 17:08 Sodium Chloride 0.9% 10 Ml Flush Syringe IV PRN PRN LINE FLUSH Sodium Chloride 10 ml 02/28/22 22:00 03/03/22 10:23 Sodium Chloride 0.9% 10 Ml Flush Syringe IV 10 ml BID JOB Administration
[2022-03-03] MEDS ORDERED: INSULIN REGULAR, HUMAN 100 UNITS/1 ML IV ONE (13:54)
--- NOTE | 2022-03-03 16:02 | Progress Note ---
Assessment and Plan Assessment and plan: This is a 61-year-old male with DM, HTN, HLD admitted with sepsis, DKA, LATASHA, rhabdomyolysis Neuro: Acute metabolic encephalopathy -Reorientation as needed -Maintain sleep-wake cycle -As needed analgesia -CT head showed no acute intracranial process -CT C-spine showed no acute intracranial process, visualized paranasal sinuses and mastoid air cells clear -Continue home Remeron Cardiac: h/o hyperlipidemia, hypertension -Continue home amlodipine and Lipitor -Added hydralazine -Hold valsartan -Hydralazine as needed -Blood pressure monitoring per protocol Respiratory: Acute hypoxic respiratory failure -Presented with hypoxia on room air -Currently on nasal cannula -Supplemental oxygen as needed -Pulmonary hygiene -SPO2 monitor per protocol -CXR showed no acute process GI: Moderate protein calorie malnutrition -Failed bedside swallow evaluation -ST evaluation cleared for pured diet -24 hours +4033 mL -PPI -NTR consulted for tube feedings : Acute kidney injury likely secondary to vasomotor nephropathy may also have underlying CKD, rhabdomyolysis -Nephrology consulted, appreciate recommendations -HD per nephro -Monitor intake and output -Renally dose medications -Avoid nephrotoxic medications -FeNa 1.2 indicating intrinsic cause for renal failure -Renal ultrasound slightly atrophic left kidney, no hydronephrosis, masses or stones -We will hold DELFIN/ARB -MIVF -Trend BMP and CK ID: Sepsis (POA) -Presented with lactic acidosis, leukocytosis, hypotension, pyuria on UA -Antibiotic therapy with cefepime -f/u blood culture, urine culture -UA with some pyuria -Monitor WBC and temperature curve Endo: DKA, h/o DM -Presented with venous pH 7.116, anion gap 35, blood glucose 1447 -Initiated on DKA protocol -S/p insulin drip -Transitioned to SSI and long-acting insulin -Accu-Cheks q. 6 while n.p.o. -Avoid hypoglycemia -Hemoglobin A1c 12.5 Heme: Leukocytosis (resolved) -Trend CBC -Transfuse hemoglobin less than 7 -SCDs to BLE while in bed The high probability of a clinically significant, sudden or life threatening deterioration of the [multi] system(s) required my full and direct attention, intervention and personal management. The aggregate critical care time was [60] minutes. This time is in addition to time spent performing reported procedures but includes the following: [x] Data Review and interpretation [x] Patient assessment and monitoring of vital signs [x] Documentation [x] Medication orders and management Disposition Plan: imcu Total Time Spent with Patient (Minutes): 60 History Interval history: This is a 61-year-old male with diabetes, hypertension, hyperlipidemia, s/p bilateral traumatic amputation of lower extremities, and has slurred speech at baseline who presents to the emergency department on 02/28 via EMS for altered mental status. On arrival to the emergency department blood pressure was noted to be 80/60 with oxygen saturations of 74% on room air consistent with acute hypoxic respiratory failure. Lab work was consistent with DKA, hypernatremia, leukocytosis, acute kidney injury, sepsis, rhabdomyolysis. Patient was admitted to the hospital service with consults to [facility] and nephrology. Hospital course to date: 03/01: Patient failed bedside swallow evaluation and will be kept NPO. NG tube to be placed by RN with consult to nutrition for tube feeding. Formalized evaluation pending. Patient's anion gap noted to be closed. Due to n.p.o. status, hypernatremia and need for insulin and rhabdo, MIVF changed to 1/2 NS. Patient was also given LR bolus today. 03/02: Patient remains confused, hypernatremia and rhabdomyolysis is improved however renal function has worsened. Patient was given IV insulin for hype rglycemia and will increase Lantus. RN to start TF when able. Patient will be transferred to IMCU. Hydralazine IV as needed, hydralazine p.o. and increase in amlodipine for hypertension. Bilateral respirations events overnight as patient removed NG tube which was replaced. Patient will be on half-normal saline at 125 for rhabdomyolysis. Nephrology plans to initiate hemodialysis. 03/03: CK continues to decrease, CR decreased to 3.8 but increased to 5. Tolerated HD yesterday. Patient seems to be more alert today. Remains in IMCU. Tube feedings resumed. Increasing Lantus. Increase in hydralazin and amlodipine. Possible transfer to floor tomorrow. Hospitalist Physical - Constitutional Vitals: Temp Pulse Resp BP Pulse Ox 99 F 104 H 22 152/91 97 03/03/22 12:00 03/03/22 15:31 03/03/22 15:31 03/03/22 15:31 03/03/22 15:31 General appearance: Present: no acute distress - EENT Eyes: Present: PERRL, EOM intact ENT: poor dentition - Neck Neck: Present: normal ROM - Respiratory Respiratory: bilateral: CTA - Cardiovascular Rhythm: regular Heart Sounds: Present: S1 & S2. Absent: systolic murmur, diastolic murmur - Extremities Extremities: no ischemia, No edema Peripheral Pulses: within normal limits (AKA/BKA) - Abdominal General gastrointestinal: soft, non-tender, normal bowel sounds - Integumentary Integumentary: Present: warm, dry - Psychiatric Psychiatric: cooperative - Neurologic Neurologic: CNII-XII intact, no focal deficits - Allied Health Allied health notes reviewed: nursing, RT, social work HEART Score - HEART Score Troponin: Troponin T 0.014 ng/mL (0.00-0.029) 02/28/22 15:27 Results - Labs CBC & Chem 7: 03/03/22 04:10 03/03/22 14:08 Labs: Laboratory Last Values WBC 10.0 K/mm3 (4.5-11.0) 03/03/22 04:10 RBC 4.81 M/mm3 (3.65-5.03) 03/03/22 04:10 Hgb 12.5 gm/dl (11.8-15.2) 03/03/22 04:10 Hct 39.6 % (35.5-45.6) 03/03/22 04:10 MCV 82 fl (84-94) L 03/03/22 04:10 MCH 26 pg (28-32) L 03/03/22 04:10 MCHC 32 % (32-34) 03/03/22 04:10 RDW 17.3 % (13.2-15.2) H 03/03/22 04:10 Plt Count 116 K/mm3 (140-440) L 03/03/22 04:10 Add Manual Diff Complete 02/28/22 11:54 Total Counted 100 02/28/22 11:54 Seg Neuts % (Manual) 94.0 % (40.0-70.0) H 02/28/22 11:54 Band Neutrophils % 2.0 % 02/28/22 11:54 Lymphocytes % (Manual) 1.0 % (13.4-35.0) L 02/28/22 11:54 Reactive Lymphs % (Man) 0 % 02/28/22 11:54 Monocytes % (Manual) 3.0 % (0.0-7.3) 02/28/22 11:54 Eosinophils % (Manual) 0 % (0.0-4.3) 02/28/22 11:54 Basophils % (Manual) 0 % (0.0-1.8) 02/28/22 11:54 Metamyelocytes % 0 % 02/28/22 11:54 Myelocytes % 0 % 02/28/22 11:54 Promyelocytes % 0 % 02/28/22 11:54 Blast Cells % 0 % 02/28/22 11:54 Nucleated RBC % Not Reportable 02/28/22 11:54 Seg Neutrophils # Man 10.7 K/mm3 (1.8-7.7) H 02/28/22 11:54 Band Neutrophils # 0.2 K/mm3 02/28/22 11:54 Lymphocytes # (Manual) 0.1 K/mm3 (1.2-5.4) L 02/28/22 11:54 Abs React Lymphs (Man) 0.0 K/mm3 02/28/22 11:54 Monocytes # (Manual) 0.3 K/mm3 (0.0-0.8) 02/28/22 11:54 Eosinophils # (Manual) 0.0 K/mm3 (0.0-0.4) 02/28/22 11:54 Basophils # (Manual) 0.0 K/mm3 (0.0-0.1) 02/28/22 11:54 Metamyelocytes # 0.0 K/mm3 02/28/22 11:54 Myelocytes # 0.0 K/mm3 02/28/22 11:54 Promyelocytes # 0.0 K/mm3 02/28/22 11:54 Blast Cells # 0.0 K/mm3 02/28/22 11:54 WBC Morphology Not Reportable 02/28/22 11:54 Hypersegmented Neuts Not Reportable 02/28/22 11:54 Hyposegmented Neuts Not Reportable 02/28/22 11:54 Hypogranular Neuts Not Reportable 02/28/22 11:54 Smudge Cells Not Reportable 02/28/22 11:54 Toxic Granulation Not Reportable 02/28/22 11:54 Toxic Vacuolation Not Reportable 02/28/22 11:54 Dohle Bodies Not Reportable 02/28/22 11:54 Pelger-Huet Anomaly Not Reportable 02/28/22 11:54 Perla Rods Not Reportable 02/28/22 11:54 Platelet Estimate Consistent w auto 02/28/22 11:54 Clumped Platelets Not Reportable 02/28/22 11:54 Plt Clumps, EDTA Not Reportable 02/28/22 11:54 Large Platelets Few 02/28/22 11:54 Giant Platelets Not Reportable 02/28/22 11:54 Platelet Satelliting Not Reportable 02/28/22 11:54 Plt Morphology Comment Not Reportable 02/28/22 11:54 RBC Morphology Normal 02/28/22 11:54 Dimorphic RBCs Not Reportable 02/28/22 11:54 Polychromasia Not Reportable 02/28/22 11:54 Hypochromasia Not Reportable 02/28/22 11:54 Poikilocytosis Not Reportable 02/28/22 11:54 Anisocytosis Not Reportable 02/28/22 11:54 Microcytosis Not Reportable 02/28/22 11:54 Macrocytosis Not Reportable 02/28/22 11:54 Spherocytes Not Reportable 02/28/22 11:54 Pappenheimer Bodies Not Reportable 02/28/22 11:54 Sickle Cells Not Reportable 02/28/22 11:54 Target Cells Not Reportable 02/28/22 11:54 Tear Drop Cells Not Reportable 02/28/22 11:54 Ovalocytes Not Reportable 02/28/22 11:54 Helmet Cells Not Reportable 02/28/22 11:54 [place] Bodies Not Reportable 02/28/22 11:54 Johnson Rings Not Reportable 02/28/22 11:54 Jose Cells Not Reportable 02/28/22 11:54 Bite Cells Not Reportable 02/28/22 11:54 Crenated Cell Not Reportable 02/28/22 11:54 Elliptocytes Not Reportable 02/28/22 11:54 Acanthocytes (Spur) Not Reportable 02/28/22 11:54 Rouleaux Not Reportable 02/28/22 11:54 Hemoglobin C Crystals Not Reportable 02/28/22 11:54 Schistocytes Not Reportable 02/28/22 11:54 Malaria parasites Not Reportable 02/28/22 11:54 Josef Bodies Not Reportable 02/28/22 11:54 Hem Pathologist Commnt No 02/28/22 11:54 PT 15.9 Sec. (12.2-14.9) H 02/28/22 13:00 INR 1.14 (0.87-1.13) H 02/28/22 13:00 APTT 24.7 Sec. (24.2-36.6) 02/28/22 13:00 ABG pH 7.211 pH Units (7.350-7.450) L 02/28/22 12:18 ABG pCO2 30.8 mm Hg 02/28/22 12:18 ABG pO2 267.8 mm Hg (80.0-90.0) H 02/28/22 12:18 ABG HCO3 12.1 mmol/L (20.0-26.0) L 02/28/22 12:18 ABG O2 Saturation 99.4 % (95.0-99.0) H 02/28/22 12:18 ABG O2 Content 22.8 (0.0-44) 02/28/22 12:18 ABG Base Excess -14.3 mmol/L (-2.0-3.0) L 02/28/22 12:18 ABG Hemoglobin 16.2 gm/dl (14.0-18.0) 02/28/22 12:18 ABG Carboxyhemoglobin 1.4 % (0.0-5.0) 02/28/22 12:18 ABG Methemoglobin 0.7 % (0.0-1.5) 02/28/22 12:18 VBG pH 7.116 (7.320-7.420) L* 02/28/22 11:54 Oxyhemoglobin 97.4 % (95.0-99.0) 02/28/22 12:18 FiO2 100 % 02/28/22 12:18 Sodium 138 mmol/L (137-145) 03/03/22 14:08 Potassium 3.9 mmol/L (3.6-5.0) 03/03/22 14:08 Chloride 100.0 mmol/L (98-107) 03/03/22 14:08 Carbon Dioxide 17 mmol/L (22-30) L 03/03/22 14:08 Anion Gap 25 mmol/L 03/03/22 14:08 BUN 55 mg/dL (9-20) H 03/03/22 14:08 Creatinine 5.6 mg/dL (0.8-1.3) H 03/03/22 14:08 Estimated GFR 13 ml/min 03/03/22 14:08 BUN/Creatinine Ratio 10 % 03/03/22 14:08 Glucose 408 mg/dL (75-100) H 03/03/22 14:08 POC Glucose 339 mg/dL (70-105) H 03/03/22 06:40 Hemoglobin A1c 12.5 % (4-6) H 03/01/22 14:46 Lactic Acid 4.70 mmol/L (0.7-2.0) H* 02/28/22 23:08 Calcium 7.0 mg/dL (8.4-10.2) L 03/03/22 14:08 Phosphorus 3.60 mg/dL (2.5-4.5) D 03/02/22 04:27 Magnesium 3.20 mg/dL (1.7-2.3) H 02/28/22 23:08 Total Bilirubin 0.20 mg/dL (0.1-1.2) 02/28/22 15:27 AST 47 units/L (5-40) H 02/28/22 15:27 ALT 22 units/L (7-56) 02/28/22 15:27 Alkaline Phosphatase 173 units/L (35-129) H 02/28/22 15:27 Ammonia 66.0 umol/L (25-60) H 02/28/22 11:54 Total Creatine Kinase 24845 units/L (55-170) H 03/03/22 07:28 Troponin T 0.014 ng/mL (0.00-0.029) 02/28/22 15:27 Total Protein 6.3 g/dL (6.3-8.2) 02/28/22 15:27 Albumin 3.8 g/dL (3.9-5) L 02/28/22 15:27 Albumin/Globulin Ratio 1.5 % 02/28/22 15:27 Phospholipids 178 mg/dL (151-264) 02/28/22 11:54 TSH 1.170 mlU/mL (0.270-4.200) 02/28/22 14:53 Free T4 1.32 ng/dL (0.76-1.46) 02/28/22 14:53 Urine Color Straw (Yellow) 02/28/22 Unknown Urine Turbidity Slightly cloudy (Clear) 02/28/22 Unknown Specific [place] (Man) 1.010 (1.003-1.030) 02/28/22 Unknown Ur Protein (Man) 2+ mg/dL (Negative) 02/28/22 Unknown Ur Ketones (Man) 5 (Negative) 02/28/22 Unknown Urine Bilirubin (Man) Negative (Negative) 02/28/22 Unknown Urine WBC (Auto) 9.0 /HPF (0.0-6.0) H 02/28/22 Unknown Urine RBC (Auto) 2.0 /HPF (0.0-6.0) 02/28/22 Unknown U Epithel Cells (Auto) 12.0 /HPF (0-13.0) 02/28/22 Unknown Urine Bacteria (Auto) 1+ /HPF (Negative) 02/28/22 Unknown Urine RBC (Manual) 3+ (Negative) 02/28/22 Unknown Urine Mucus Few /HPF 02/28/22 Unknown Urine Eosinophils Rare (None Seen) 03/01/22 15:45 Urine Creatinine 185.1 mg/dL (0.1-20.0) H 03/01/22 15:45 Urine Creatinine 187.2 mg/dL (0.1-20.0) H 03/01/22 15:45 Protein/Creatinin Ratio 3.13 03/01/22 15:45 Urine Sodium 68 mmol/L 03/01/22 15:45 Urine Urea Nitrogen 179 03/01/22 15:45 Urine Total Protein 580 mg/dL (5-11.8) H 03/01/22 15:45 Random Vancomycin 17.3 ug/mL (0-40.0) 03/02/22 04:27 Hepatitis A IgM Ab Non-reactive (NonReactive) 03/02/22 04:27 Hep Bs Antigen Non-reactive (Negative) 03/02/22 04:27 Hep B Core IgM Ab Non-reactive (NonReactive) 03/02/22 04:27 Hepatitis C Antibody Non-reactive (NonReactive) 03/02/22 04:27 Microbiology: Microbiology 02/28/22 11:54 Peripheral/Venous Blood Culture - Preliminary NO GROWTH AFTER 72 HOURS 02/28/22 11:54 Peripheral/Venous Blood Culture - Preliminary NO GROWTH AFTER 72 HOURS 02/28/22 Unknown Urine,Clean Catch Urine Culture - Preliminary NO GROWTH AFTER 24 HOURS Mejias/IV: Voiding Method Indwelling Catheter Active Medications - Current Medications Current Medications: Generic Name Dose Route Start Last Admin Trade Name Freq PRN Reason Stop Dose Admin Acetaminophen 650 mg 02/28/22 21:22 03/03/22 05:47 Acetaminophen 325 Mg Tab PO 650 mg Q4H PRN Administration Pain MILD(1-3)/Fever >100.5/SHIN Amlodipine Besylate 5 mg 03/03/22 10:00 03/03/22 10:20 Amlodipine 5 Mg Tab FEEDTUBE 5 mg QDAY JOB Administration Aspirin 81 mg 03/02/22 10:00 03/03/22 10:21 Aspirin 81 Mg Tab Chew PO 81 mg QDAY JOB Administration Atorvastatin Calcium 40 mg 03/02/22 10:00 03/03/22 10:21 Atorvastatin 40 Mg Tab PO 40 mg QDAY JOB Administration Dextrose 50 ml 03/01/22 17:32 Dextrose 50% In Water (25gm) 50 Ml Syringe IV Q30MIN PRN Hypoglycemia Protocol Famotidine 20 mg 03/03/22 10:00 03/03/22 10:21 Famotidine 20 Mg Tab FEEDTUBE 20 mg QDAY JOB Administration Hydralazine HCl 10 mg 03/01/22 15:00 03/03/22 04:04 Hydralazine 20 Mg/1 Ml Inj IV 10 mg Q4HR PRN Administration Hypertension Sodium Chloride 1,000 mls @ 125 mls/hr 03/02/22 13:00 03/03/22 13:00 Nacl 0.45% 1000 Ml IV 125 mls/hr DIRECT JOB Administration Insulin Glargine 20 units 03/02/22 22:00 03/02/22 22:34 Insulin Glargine 100 Units/Ml SUB-Q 20 units QHS JOB Administration Insulin Human Regular 0 units 03/01/22 18:00 03/03/22 12:56 Insulin Regular, Human 100 Units/1 Ml SUB-Q 10 units Q6H JOB Administration Protocol Metoclopramide HCl 5 mg 02/28/22 21:22 Metoclopramide 10 Mg/2 Ml Inj IV Q6H PRN Nausea And Vomiting Mirtazapine 15 mg 03/02/22 12:00 03/03/22 10:22 Mirtazapine 15 Mg Tab FEEDTUBE 15 mg DAILY JOB Administration Ondansetron HCl 4 mg 02/28/22 21:22 Ondansetron 4 Mg/2 Ml Inj IV Q3H PRN Nausea And Vomiting Oxycodone/Acetaminophen 1 tab 02/28/22 21:22 Oxycodone /Acetaminophen 5-325mg Tab PO Q6H PRN Pain, Moderate (4-6) Sodium Chloride 10 ml 02/28/22 17:08 Sodium Chloride 0.9% 10 Ml Flush Syringe IV PRN PRN LINE FLUSH Sodium Chloride 10 ml 02/28/22 22:00 03/03/22 10:23 Sodium Chloride 0.9% 10 Ml Flush Syringe IV 10 ml BID JOB Administration Nutrition/Malnutrition Assess - Dietary Evaluation Nutrition/Malnutrition Findings: Nutrition Notes Start: 03/01/22 15:08 Freq: Status: Active Protocol: Document 03/03/22 15:03 JANICE (Rec: 03/03/22 15:11 PAALL [id number]) Nutrition Notes Initial or Follow up Reassessment Current Diagnosis Acute Kidney Injury,Diabetes, Sepsis,Hypertension, Hyperlipidemia Other Pertinent Diagnosis Acute metabolic encephalopathy Current Diet TF (Nepro at 25ml/hr) + Pureed Labs/Tests BUN 50 Cr 5 BG 396 Pertinent Medications Reviewed Height 4 ft 11 in Weight 72.1 kg [place] Body Weight (kg) 45.45 BMI 32.1 Weight change and time frame AdjBW for bilat BKA: 81.746kg Adj BMI: 36.3 Weight Status Obese Subjective/Other Information 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 Burn Absent Trauma Absent #1 Nutrition Diagnosis Swallowing difficulty As Evidenced by Signs and Symptoms [employer]ING [employer]AL[employer]GER recommended pureed diet Diagnosis Progress(for reassessment Resolved documentation) Is patient on ventilator? No Is Patient Ambulatory and/or Out of Bed No REE-([facility]-confined to bed) 1622.328 Kcal/Kg value to use for calculation 16 Approximate Energy Requirements Using 1154 kcal/Kg Calculation Used for Recommendations Kcal/kg Additional Notes Pro needs >1.2g/kg adjBW: >71g /day Fluid needs 1-1.5L/day Nutrition Intervention Change Diet Order: Continue pureed diet as tolerated Nutrition Support: Continue TF as needed Goal #1 PO tolerance Goal #2 PO intake to meet at least 75% energy and pro needs Goal #3 TF tolerance Follow-Up By: 03/06/22 Additional Comments F/U: PO intake, TF tolerance
[2022-03-03] MEDS ORDERED: amLODIPine 5 MG TAB FEEDTUBE ONE (17:00)
[2022-03-03] MEDS: hydrALAZINE 25 MG TAB FEEDTUBE SCH (23:05)
[2022-03-03] MEDS: INSULIN GLARGINE 100 UNITS/ML SUB-Q SCH (23:15)
[2022-03-04 00:02] LABS: Calcium 7.7 mg/dL (8.4-10.2)
[2022-03-04 05:00] LABS: Hematocrit 34.9 % (35.5-45.6); Hemoglobin 11.1 gm/dl (11.8-15.2); Mean Corpuscular HGB Conc 32 % (32-34); Mean Corpuscular Volume 82 fl (84-94); Red Blood Count 4.27 M/mm3 (3.65-5.03); Red Cell Distribution Width 16.5 % (13.2-15.2)
[2022-03-04 05:01] LABS: Platelet Count 75 K/mm3 (140-440)
[2022-03-04] MEDS: SODIUM CHLORIDE 0.45% 1000 ML 1,000 ML IV SCH ×3 (05:10→21:30)
[2022-03-04] MEDS: hydrALAZINE 25 MG TAB FEEDTUBE SCH ×3 (05:15→21:30)
[2022-03-04 05:22] LABS: Calcium 7.2 mg/dL (8.4-10.2)
[2022-03-04] MEDS: INSULIN REGULAR, HUMAN 100 UNITS/1 ML SUB-Q SCH ×3 (05:29→17:49)
[2022-03-04] MEDS: FAMOTIDINE 20 MG TAB FEEDTUBE SCH (09:28)
[2022-03-04] MEDS: ASPIRIN 81 MG TAB CHEW PO SCH (09:28)
[2022-03-04] MEDS: MIRTAZAPINE 15 MG TAB FEEDTUBE SCH (09:28)
[2022-03-04] MEDS: ACETAMINOPHEN 325 MG TAB PO PRN (09:28)
[2022-03-04] MEDS ORDERED: amLODIPine 10 MG TAB FEEDTUBE SCH (10:00)
--- NOTE | 2022-03-04 10:46 | Progress Note ---
Assessment and Plan Assessment and plan: This is a 61-year-old male with DM, HTN, HLD admitted with sepsis, DKA, LATASHA, rhabdomyolysis Neuro: Acute metabolic encephalopathy (improved) -Reorientation as needed -Maintain sleep-wake cycle -As needed analgesia -CT head showed no acute intracranial process -CT C-spine showed no acute intracranial process, visualized paranasal sinuses and mastoid air cells clear -Continue home Remeron Cardiac: h/o hyperlipidemia, hypertension -Continue home amlodipine and Lipitor -Added hydralazine -Hold valsartan -Hydralazine as needed -Blood pressure monitoring per protocol Respiratory: Acute hypoxic respiratory failure -Presented with hypoxia on room air -Currently on nasal cannula -Supplemental oxygen as needed -Pulmonary hygiene -SPO2 monitor per protocol -CXR showed no acute process GI: Moderate protein calorie malnutrition -Failed bedside swallow evaluation -ST evaluation cleared for pured diet -24 hours + 3122 mL -PPI -NTR consulted for tube feedings -Large volume emesis-> will hold TF and attempt pureed diet : Acute kidney injury likely secondary to vasomotor nephropathy may also have underlying CKD, rhabdomyolysis -Nephrology consulted, appreciate recommendations -HD per nephro -Monitor intake and output -Renally dose medications -Avoid nephrotoxic medications -FeNa 1.2 indicating intrinsic cause for renal failure -Renal ultrasound slightly atrophic left kidney, no hydronephrosis, masses or stones -We will hold DELFIN/ARB -MIVF -Trend BMP and CK ID: Sepsis (POA), resolved -Presented with lactic acidosis, leukocytosis, hypotension, pyuria on UA -Stopped abx (rocephin) -f/u blood culture, urine culture -UA with some pyuria -Monitor WBC and temperature curve Endo: DKA, h/o DM -Presented with venous pH 7.116, anion gap 35, blood glucose 1447 -Initiated on DKA protocol -S/p insulin drip -Transitioned to SSI and long-acting insulin -Accu-Cheks q. 6 while n.p.o. -Avoid hypoglycemia -Hemoglobin A1c 12.5 Heme: Leukocytosis (resolved), thrombocytopenia -Trend CBC -Transfuse hemoglobin less than 7 -SCDs to BLE while in bed The high probability of a clinically significant, sudden or life threatening deterioration of the [multi] system(s) required my full and direct attention, intervention and personal management. The aggregate critical care time was [60] minutes. This time is in addition to time spent performing reported procedures but includes the following: [x] Data Review and interpretation [x] Patient assessment and monitoring of vital signs [x] Documentation [x] Medication orders and management Disposition Plan: [facility] Total Time Spent with Patient (Minutes): 60 History Interval history: This is a 61-year-old male with diabetes, hypertension, hyperlipidemia, s/p bilateral traumatic amputation of lower extremities, and has slurred speech at baseline who presents to the emergency department on 02/28 via EMS for altered mental status. On arrival to the emergency department blood pressure was noted to be 80/60 with oxygen saturations of 74% on room air consistent with acute hypoxic respiratory failure. Lab work was consistent with DKA, hypernatremia, leukocytosis, acute kidney injury, sepsis, rhabdomyolysis. Patient was admitted to the hospital service with consults to CCM and nephrology. Hospital course to date: 03/01: Patient failed bedside swallow evaluation and will be kept NPO. NG tube to be placed by RN with consult to nutrition for tube feeding. Formalized evaluation pending. Patient's anion gap noted to be closed. Due to n.p.o. status, hypernatremia and need for insulin and rhabdo, MIVF changed to 1/2 NS. Patient was also given LR bolus today. 03/02: Patient remains confused, hypernatremia and rhabdomyolysis is improved however renal function has worsened. Patient was given IV insulin for hyperglycemia and will increase Lantus. RN to start TF when able. Patient will be transferred to [facility]. Hydralazine IV as needed, hydralazine p.o. and increase in amlodipine for hypertension. Bilateral respirations events overnight as patient removed NG tube which was replaced. Patient will be on half-normal saline at 125 for rhabdomyolysis. Nephrology plans to initiate hemodialysis. 03/03: CK continues to decrease, CR decreased to 3.8 but increased to 5. Tolerated HD yesterday. Patient seems to be more alert today. Remains in IMCU. Tube feedings resumed. Increasing Lantus. Increase in hydralazine and amlodipine. Possible transfer to floor tomorrow. 03/04: Patient seems more awake and alert today, patient had large volume emesis and RN instructed to leave tube feeding off and give p.o. as tolerated. Does have as needed Reglan. Patient noted to have a bloody nose and his platelets are downtrending at 75 today. We will continue to monitor. On chart review it does not seem that he had heparin exposure during stay therfore HIT was not sent. We will continue to monitor. Possible transfer to the floor today. Increase in hydral Hospitalist Physical - Constitutional Vitals: Temp Pulse Resp BP Pulse Ox 99 F 100 H 26 H 168/93 98 03/04/22 04:00 03/04/22 09:28 03/04/22 06:00 03/04/22 09:28 03/04/22 08:36 General appearance: Present: no acute distress - EENT Eyes: Present: PERRL, EOM intact ENT: hearing intact, clear oral mucosa - Neck Neck: Present: normal ROM - Respiratory Respiratory effort: normal Respiratory: bilateral: diminished - Cardiovascular Rhythm: regular Heart Sounds: Present: S1 & S2. Absent: systolic murmur, diastolic murmur - Extremities Extremities: no ischemia, normal temperature, normal color Peripheral Pulses: abnormal (BLE bka/aka) - Abdominal General gastrointestinal: soft, non-tender, non-distended, normal bowel sounds - Integumentary Integumentary: Present: warm, dry - Psychiatric Psychiatric: cooperative - Neurologic Neurologic: CNII-XII intact - Allied Health Allied health notes reviewed: nursing, RT HEART Score - HEART Score Troponin: Troponin T 0.014 ng/mL (0.00-0.029) 02/28/22 15:27 Results - Labs CBC & Chem 7: 03/04/22 04:45 03/04/22 04:45 Labs: Laboratory Last Values WBC 7.1 K/mm3 (4.5-11.0) 03/04/22 04:45 RBC 4.27 M/mm3 (3.65-5.03) 03/04/22 04:45 Hgb 11.1 gm/dl (11.8-15.2) L 03/04/22 04:45 Hct 34.9 % (35.5-45.6) L 03/04/22 04:45 MCV 82 fl (84-94) L 03/04/22 04:45 MCH 26 pg (28-32) L 03/04/22 04:45 MCHC 32 % (32-34) 03/04/22 04:45 RDW 16.5 % (13.2-15.2) H 03/04/22 04:45 Plt Count 75 K/mm3 (140-440) L 03/04/22 04:45 Add Manual Diff Complete 02/28/22 11:54 Total Counted 100 02/28/22 11:54 Seg Neuts % (Manual) 94.0 % (40.0-70.0) H 02/28/22 11:54 Band Neutrophils % 2.0 % 02/28/22 11:54 Lymphocytes % (Manual) 1.0 % (13.4-35.0) L 02/28/22 11:54 Reactive Lymphs % (Man) 0 % 02/28/22 11:54 Monocytes % (Manual) 3.0 % (0.0-7.3) 02/28/22 11:54 Eosinophils % (Manual) 0 % (0.0-4.3) 02/28/22 11:54 Basophils % (Manual) 0 % (0.0-1.8) 02/28/22 11:54 Metamyelocytes % 0 % 02/28/22 11:54 Myelocytes % 0 % 02/28/22 11:54 Promyelocytes % 0 % 02/28/22 11:54 Blast Cells % 0 % 02/28/22 11:54 Nucleated RBC % Not Reportable 02/28/22 11:54 Seg Neutrophils # Man 10.7 K/mm3 (1.8-7.7) H 02/28/22 11:54 Band Neutrophils # 0.2 K/mm3 02/28/22 11:54 Lymphocytes # (Manual) 0.1 K/mm3 (1.2-5.4) L 02/28/22 11:54 Abs React Lymphs (Man) 0.0 K/mm3 02/28/22 11:54 Monocytes # (Manual) 0.3 K/mm3 (0.0-0.8) 02/28/22 11:54 Eosinophils # (Manual) 0.0 K/mm3 (0.0-0.4) 02/28/22 11:54 Basophils # (Manual) 0.0 K/mm3 (0.0-0.1) 02/28/22 11:54 Metamyelocytes # 0.0 K/mm3 02/28/22 11:54 Myelocytes # 0.0 K/mm3 02/28/22 11:54 Promyelocytes # 0.0 K/mm3 02/28/22 11:54 Blast Cells # 0.0 K/mm3 02/28/22 11:54 WBC Morphology Not Reportable 02/28/22 11:54 Hypersegmented Neuts Not Reportable 02/28/22 11:54 Hyposegmented Neuts Not Reportable 02/28/22 11:54 Hypogranular Neuts Not Reportable 02/28/22 11:54 Smudge Cells Not Reportable 02/28/22 11:54 Toxic Granulation Not Reportable 02/28/22 11:54 Toxic Vacuolation Not Reportable 02/28/22 11:54 Dohle Bodies Not Reportable 02/28/22 11:54 Pelger-Huet Anomaly Not Reportable 02/28/22 11:54 Perla Rods Not Reportable 02/28/22 11:54 Platelet Estimate Consistent w auto 02/28/22 11:54 Clumped Platelets Not Reportable 02/28/22 11:54 Plt Clumps, EDTA Not Reportable 02/28/22 11:54 Large Platelets Few 02/28/22 11:54 Giant Platelets Not Reportable 02/28/22 11:54 Platelet Satelliting Not Reportable 02/28/22 11:54 Plt Morphology Comment Not Reportable 02/28/22 11:54 RBC Morphology Normal 02/28/22 11:54 Dimorphic RBCs Not Reportable 02/28/22 11:54 Polychromasia Not Reportable 02/28/22 11:54 Hypochromasia Not Reportable 02/28/22 11:54 Poikilocytosis Not Reportable 02/28/22 11:54 Anisocytosis Not Reportable 02/28/22 11:54 Microcytosis Not Reportable 02/28/22 11:54 Macrocytosis Not Reportable 02/28/22 11:54 Spherocytes Not Reportable 02/28/22 11:54 Pappenheimer Bodies Not Reportable 02/28/22 11:54 Sickle Cells Not Reportable 02/28/22 11:54 Target Cells Not Reportable 02/28/22 11:54 Tear Drop Cells Not Reportable 02/28/22 11:54 Ovalocytes Not Reportable 02/28/22 11:54 Helmet Cells Not Reportable 02/28/22 11:54 Montoya-[place] Bodies Not Reportable 02/28/22 11:54 [place] Rings Not Reportable 02/28/22 11:54 Jose Cells Not Reportable 02/28/22 11:54 Bite Cells Not Reportable 02/28/22 11:54 Crenated Cell Not Reportable 02/28/22 11:54 Elliptocytes Not Reportable 02/28/22 11:54 Acanthocytes (Spur) Not Reportable 02/28/22 11:54 Rouleaux Not Reportable 02/28/22 11:54 Hemoglobin C Crystals Not Reportable 02/28/22 11:54 Schistocytes Not Reportable 02/28/22 11:54 Malaria parasites Not Reportable 02/28/22 11:54 Josef Bodies Not Reportable 02/28/22 11:54 Hem Pathologist Commnt No 02/28/22 11:54 PT 15.9 Sec. (12.2-14.9) H 02/28/22 13:00 INR 1.14 (0.87-1.13) H 02/28/22 13:00 APTT 24.7 Sec. (24.2-36.6) 02/28/22 13:00 ABG pH 7.211 pH Units (7.350-7.450) L 02/28/22 12:18 ABG pCO2 30.8 mm Hg 02/28/22 12:18 ABG pO2 267.8 mm Hg (80.0-90.0) H 02/28/22 12:18 ABG HCO3 12.1 mmol/L (20.0-26.0) L 02/28/22 12:18 ABG O2 Saturation 99.4 % (95.0-99.0) H 02/28/22 12:18 ABG O2 Content 22.8 (0.0-44) 02/28/22 12:18 ABG Base Excess -14.3 mmol/L (-2.0-3.0) L 02/28/22 12:18 ABG Hemoglobin 16.2 gm/dl (14.0-18.0) 02/28/22 12:18 ABG Carboxyhemoglobin 1.4 % (0.0-5.0) 02/28/22 12:18 ABG Methemoglobin 0.7 % (0.0-1.5) 02/28/22 12:18 VBG pH 7.116 (7.320-7.420) L* 02/28/22 11:54 Oxyhemoglobin 97.4 % (95.0-99.0) 02/28/22 12:18 FiO2 100 % 02/28/22 12:18 Sodium 137 mmol/L (137-145) 03/04/22 04:45 Potassium 3.4 mmol/L (3.6-5.0) L 03/04/22 04:45 Chloride 97.0 mmol/L (98-107) L 03/04/22 04:45 Carbon Dioxide 24 mmol/L (22-30) 03/04/22 04:45 Anion Gap 19 mmol/L 03/04/22 04:45 BUN 33 mg/dL (9-20) H 03/04/22 04:45 Creatinine 4.2 mg/dL (0.8-1.3) H 03/04/22 04:45 Estimated GFR 17 ml/min 03/04/22 04:45 BUN/Creatinine Ratio 8 % 03/04/22 04:45 Glucose 328 mg/dL (75-100) H 03/04/22 04:45 POC Glucose 287 mg/dL (70-105) H 03/03/22 23:27 Hemoglobin A1c 12.5 % (4-6) H 03/01/22 14:46 Lactic Acid 4.70 mmol/L (0.7-2.0) H* 02/28/22 23:08 Calcium 7.2 mg/dL (8.4-10.2) L 03/04/22 04:45 Phosphorus 3.60 mg/dL (2.5-4.5) D 03/02/22 04:27 Magnesium 3.20 mg/dL (1.7-2.3) H 02/28/22 23:08 Total Bilirubin 0.20 mg/dL (0.1-1.2) 02/28/22 15:27 AST 47 units/L (5-40) H 02/28/22 15:27 ALT 22 units/L (7-56) 02/28/22 15:27 Alkaline Phosphatase 173 units/L (35-129) H 02/28/22 15:27 Ammonia 66.0 umol/L (25-60) H 02/28/22 11:54 Total Creatine Kinase 7936 units/L (55-170) H 03/03/22 19:00 Troponin T 0.014 ng/mL (0.00-0.029) 02/28/22 15:27 Total Protein 6.3 g/dL (6.3-8.2) 02/28/22 15:27 Albumin 3.8 g/dL (3.9-5) L 02/28/22 15:27 Albumin/Globulin Ratio 1.5 % 02/28/22 15:27 Phospholipids 178 mg/dL (151-264) 02/28/22 11:54 TSH 1.170 mlU/mL (0.270-4.200) 02/28/22 14:53 Free T4 1.32 ng/dL (0.76-1.46) 02/28/22 14:53 Urine Color Straw (Yellow) 02/28/22 Unknown Urine Turbidity Slightly cloudy (Clear) 02/28/22 Unknown Specific Pease (Man) 1.010 (1.003-1.030) 02/28/22 Unknown Ur Protein (Man) 2+ mg/dL (Negative) 02/28/22 Unknown Ur Ketones (Man) 5 (Negative) 02/28/22 Unknown Urine Bilirubin (Man) Negative (Negative) 02/28/22 Unknown Urine WBC (Auto) 9.0 /HPF (0.0-6.0) H 02/28/22 Unknown Urine RBC (Auto) 2.0 /HPF (0.0-6.0) 02/28/22 Unknown U Epithel Cells (Auto) 12.0 /HPF (0-13.0) 02/28/22 Unknown Urine Bacteria (Auto) 1+ /HPF (Negative) 02/28/22 Unknown Urine RBC (Manual) 3+ (Negative) 02/28/22 Unknown Urine Mucus Few /HPF 02/28/22 Unknown Urine Eosinophils Rare (None Seen) 03/01/22 15:45 Urine Creatinine 185.1 mg/dL (0.1-20.0) H 03/01/22 15:45 Urine Creatinine 187.2 mg/dL (0.1-20.0) H 03/01/22 15:45 Protein/Creatinin Ratio 3.13 03/01/22 15:45 Urine Sodium 68 mmol/L 03/01/22 15:45 Urine Urea Nitrogen 179 03/01/22 15:45 Urine Total Protein 580 mg/dL (5-11.8) H 03/01/22 15:45 Random Vancomycin 17.3 ug/mL (0-40.0) 03/02/22 04:27 Hepatitis A IgM Ab Non-reactive (NonReactive) 03/02/22 04:27 Hep Bs Antigen Non-reactive (Negative) 03/02/22 04:27 Hep B Core IgM Ab Non-reactive (NonReactive) 03/02/22 04:27 Hepatitis C Antibody Non-reactive (NonReactive) 03/02/22 04:27 Microbiology: Microbiology 02/28/22 11:54 Peripheral/Venous Blood Culture - Preliminary NO GROWTH AFTER 72 HOURS 02/28/22 11:54 Peripheral/Venous Blood Culture - Preliminary NO GROWTH AFTER 72 HOURS Mejias/IV: Voiding Method Incontinent Active Medications - Current Medications Current Medications: Generic Name Dose Route Start Last Admin Trade Name Freq PRN Reason Stop Dose Admin Acetaminophen 650 mg 02/28/22 21:22 03/04/22 09:28 Acetaminophen 325 Mg Tab PO 650 mg Q4H PRN Administration Pain MILD(1-3)/Fever >100.5/SHIN Amlodipine Besylate 10 mg 03/04/22 10:00 03/04/22 09:28 Amlodipine 10 Mg Tab FEEDTUBE 10 mg QDAY JOB Administration Aspirin 81 mg 03/02/22 10:00 03/04/22 09:28 Aspirin 81 Mg Tab Chew PO 81 mg QDAY JOB Administration Atorvastatin Calcium 40 mg 03/02/22 10:00 03/04/22 09:28 Atorvastatin 40 Mg Tab PO 40 mg QDAY JOB Administration Dextrose 50 ml 03/01/22 17:32 Dextrose 50% In Water (25gm) 50 Ml Syringe IV Q30MIN PRN Hypoglycemia Protocol Famotidine 20 mg 03/03/22 10:00 03/04/22 09:28 Famotidine 20 Mg Tab FEEDTUBE 20 mg QDAY JOB Administration Hydralazine HCl 10 mg 03/01/22 15:00 03/03/22 04:04 Hydralazine 20 Mg/1 Ml Inj IV 10 mg Q4HR PRN Administration Hypertension Hydralazine HCl 50 mg 03/04/22 14:00 Hydralazine 25 Mg Tab FEEDTUBE Q8HR JOB Sodium Chloride 1,000 mls @ 125 mls/hr 03/02/22 13:00 03/04/22 05:10 Nacl 0.45% 1000 Ml IV 125 mls/hr DIRECT JOB Administration Insulin Glargine 30 units 03/04/22 22:00 Insulin Glargine 100 Units/Ml SUB-Q QHS JOB Insulin Human Regular 0 units 03/01/22 18:00 03/04/22 05:29 Insulin Regular, Human 100 Units/1 Ml SUB-Q 8 units Q6H JOB Administration Protocol Lidocaine HCl 15 ml 03/04/22 14:00 Magic Mouthwash 30ml PO TID JOB Metoclopramide HCl 5 mg 02/28/22 21:22 Metoclopramide 10 Mg/2 Ml Inj IV Q6H PRN Nausea And Vomiting Mirtazapine 15 mg 03/02/22 12:00 03/04/22 09:28 Mirtazapine 15 Mg Tab FEEDTUBE 15 mg DAILY JOB Administration Ondansetron HCl 4 mg 02/28/22 21:22 03/04/22 08:17 Ondansetron 4 Mg/2 Ml Inj IV 4 mg Q3H PRN Administration Nausea And Vomiting Oxycodone/Acetaminophen 1 tab 02/28/22 21:22 Oxycodone /Acetaminophen 5-325mg Tab PO Q6H PRN Pain, Moderate (4-6) Sodium Chloride 10 ml 02/28/22 17:08 Sodium Chloride 0.9% 10 Ml Flush Syringe IV PRN PRN LINE FLUSH Sodium Chloride 10 ml 02/28/22 22:00 03/04/22 09:28 Sodium Chloride 0.9% 10 Ml Flush Syringe IV 10 ml BID JOB Administration Nutrition/Malnutrition Assess - Dietary Evaluation Nutrition/Malnutrition Findings: Nutrition Notes Start: 03/01/22 15:08 Freq: Status: Active Protocol: Document 03/03/22 15:03 JANICE (Rec: 03/03/22 15:11 JAINCE [id number]) Nutrition Notes Initial or Follow up Reassessment Current Diagnosis Acute Kidney Injury,Diabetes, Sepsis,Hypertension, Hyperlipidemia Other Pertinent Diagnosis Acute metabolic encephalopathy Current Diet TF (Nepro at 25ml/hr) + Pureed Labs/Tests BUN 50 Cr 5 BG 396 Pertinent Medications Reviewed Height 4 ft 11 in Weight 72.1 kg Menard Body Weight (kg) 45.45 BMI 32.1 Weight change and time frame AdjBW for bilat BKA: 81.746kg Adj BMI: 36.3 Weight Status Obese Subjective/Other Information Per LUGGAGE LINER evaluation yesterday, pt ok for pureed diet with nectar-thick liquids. Burn Absent Trauma Absent #1 Nutrition Diagnosis Swallowing difficulty As Evidenced by Signs and Symptoms [facility] recommended pureed diet Diagnosis Progress(for reassessment Resolved documentation) Is patient on ventilator? No Is Patient Ambulatory and/or Out of Bed No REE-([facility]-confined to bed) 1622.328 Kcal/Kg value to use for calculation 16 Approximate Energy Requirements Using 1154 kcal/Kg Calculation Used for Recommendations Kcal/kg Additional Notes Pro needs >1.2g/kg adjBW: >71g /day Fluid needs 1-1.5L/day Nutrition Intervention Change Diet Order: Continue pureed diet as tolerated Nutrition Support: Continue TF as needed Goal #1 PO tolerance Goal #2 PO intake to meet at least 75% energy and pro needs Goal #3 TF tolerance Follow-Up By: 03/06/22 Additional Comments F/U: PO intake, TF tolerance
--- NOTE | 2022-03-04 12:16 | Progress Note ---
Assessment and Plan Assessment and Plan Acute Renal Failure likely secondary to Prerenal etiology vs ATN secondary to Hypotension, Sepsis, Rhabdo and Dehydration in the setting of Metformin and ARB, may also have underlying CKD from DM and Hypertension Altered Mental Status DKA Diabetes Mellitus Hypertension Hypernatremia Leukocytosis/Sepsis Rhabdomyolysis Plan: HD today Renal ultrasound reviewed: Slightly atrophic left kidney. No hydronephrosis, mass or stones. CXR done on admisison was clear Rhabdo-on IVF Avoid nephrotoxic agents Renally dose medications Obtain daily weights Strict I/O's daily If determined patient needs hemodialysis upon discharge then will need case management involvement for outpatient HD placement Subjective Date of service: 03/04/22 Principal diagnosis: ARF Interval history: HD today, NAD. Objective - Exam Narrative Exam: General appearance: other (Awake when stimulated. Confused.) EENT: ATNC, PERRL Neck: no JVD, supple Respiratory: Present: Decreased Breath Sounds Cardiology: S1S2 Gastrointestinal: normoactive bowel sounds Integumentary: warm and dry Neurologic: other (Awake but confused) Musculoskeletal: other (Has left AKA and right BKA) - Vital Signs Vital signs: Vital Signs - 12hr 03/04/22 03/04/22 03/04/22 00:30 01:00 01:08 Temperature Pulse Rate 106 H 104 H Pulse Rate [ From Monitor] Pulse Rate [ Right Brachial] Respiratory 28 H 30 H Rate Respiratory Rate [ Generalized] Blood Pressure 164/79 170/80 O2 Sat by Pulse 99 105 H Oximetry 03/04/22 03/04/22 03/04/22 02:00 03:00 04:00 Temperature 99 F Pulse Rate 100 H 103 H 103 H Pulse Rate [ 103 H From Monitor] Pulse Rate [ Right Brachial] Respiratory 30 H 35 H 34 H Rate Respiratory 18 Rate [ Generalized] Blood Pressure 169/77 175/75 178/80 O2 Sat by Pulse 98 98 Oximetry 03/04/22 03/04/22 03/04/22 05:01 05:15 06:00 Temperature Pulse Rate 106 H 99 H 108 H Pulse Rate [ From Monitor] Pulse Rate [ 99 H Right Brachial] Respiratory 21 26 H Rate Respiratory Rate [ Generalized] Blood Pressure 177/79 165/83 158/85 O2 Sat by Pulse 98 100 Oximetry 03/04/22 03/04/22 08:36 09:28 Temperature Pulse Rate 100 H Pulse Rate [ From Monitor] Pulse Rate [ Right Brachial] Respiratory Rate Respiratory Rate [ Generalized] Blood Pressure 168/93 O2 Sat by Pulse 98 Oximetry - Lab 03/04/22 04:45 03/04/22 04:45 Most recent lab results ABG pH 7.211 pH Units (7.350-7.450) L 02/28/22 12:18 ABG pCO2 30.8 mm Hg 02/28/22 12:18 ABG pO2 267.8 mm Hg (80.0-90.0) H 02/28/22 12:18 ABG HCO3 12.1 mmol/L (20.0-26.0) L 02/28/22 12:18 ABG O2 Saturation 99.4 % (95.0-99.0) H 02/28/22 12:18 Calcium 7.2 mg/dL (8.4-10.2) L 03/04/22 04:45 Phosphorus 3.60 mg/dL (2.5-4.5) D 03/02/22 04:27 Magnesium 3.20 mg/dL (1.7-2.3) H 02/28/22 23:08 Urine Creatinine 185.1 mg/dL (0.1-20.0) H 03/01/22 15:45 Urine Creatinine 187.2 mg/dL (0.1-20.0) H 03/01/22 15:45 Urine Sodium 68 mmol/L 03/01/22 15:45 Urine Total Protein 580 mg/dL (5-11.8) H 03/01/22 15:45 Medications & Allergies - Medications Allergies/Adverse Reactions: Allergies No Known Allergies Allergy (Verified 02/28/22 11:01) Home Medications: Home Medications Medication Instructions Recorded Confirmed Last Taken Type Aspirin [Aspirin BABY CHEW TAB] 81 mg PO QDAY 10/06/19 02/28/22 Unknown History Atorvastatin [Lipitor] 40 mg PO QDAY 10/06/19 02/28/22 Unknown History Valsartan [Diovan] 160 mg PO DAILY #30 tablet 10/08/19 02/28/22 Unknown Rx metFORMIN [Glucophage] 850 mg PO BIDDIAB #60 tablet 10/09/19 02/28/22 Unknown Rx Insulin NPH Hum/Reg Insulin Hm 28 units SQ ACHS 02/28/22 02/28/22 Unknown History Insulin NPH/Regular [NovoLIN 70/30] 25 unit SUB-Q QHS 02/28/22 02/28/22 Unknown History Losartan [Cozaar] 100 mg PO QDAY 02/28/22 02/28/22 Unknown History Mirtazapine [Remeron] 15 mg PO DAILY 02/28/22 02/28/22 Unknown History Trazodone HCl [traZODone] 300 mg PO QHS 02/28/22 02/28/22 Unknown History amLODIPine [Norvasc] 2.5 mg PO DAILY 02/28/22 02/28/22 Unknown History busPIRone [Buspar] 10 mg PO DAILY 02/28/22 02/28/22 Unknown History Active Medications: Generic Name Dose Route Start Last Admin Trade Name Freq PRN Reason Stop Dose Admin Acetaminophen 650 mg 02/28/22 21:22 03/04/22 09:28 Acetaminophen 325 Mg Tab PO 650 mg Q4H PRN Administration Pain MILD(1-3)/Fever >100.5/SHIN Amlodipine Besylate 10 mg 03/04/22 10:00 03/04/22 09:28 Amlodipine 10 Mg Tab FEEDTUBE 10 mg QDAY JOB Administration Aspirin 81 mg 03/02/22 10:00 03/04/22 09:28 Aspirin 81 Mg Tab Chew PO 81 mg QDAY JOB Administration Atorvastatin Calcium 40 mg 03/02/22 10:00 03/04/22 09:28 Atorvastatin 40 Mg Tab PO 40 mg QDAY JOB Administration Dextrose 50 ml 03/01/22 17:32 Dextrose 50% In Water (25gm) 50 Ml Syringe IV Q30MIN PRN Hypoglycemia Protocol Famotidine 20 mg 03/03/22 10:00 03/04/22 09:28 Famotidine 20 Mg Tab FEEDTUBE 20 mg QDAY JOB Administration Hydralazine HCl 10 mg 03/01/22 15:00 03/03/22 04:04 Hydralazine 20 Mg/1 Ml Inj IV 10 mg Q4HR PRN Administration Hypertension Hydralazine HCl 50 mg 03/04/22 14:00 Hydralazine 25 Mg Tab FEEDTUBE Q8HR JOB Sodium Chloride 1,000 mls @ 125 mls/hr 03/02/22 13:00 03/04/22 05:10 Nacl 0.45% 1000 Ml IV 125 mls/hr DIRECT JOB Administration Insulin Glargine 30 units 03/04/22 22:00 Insulin Glargine 100 Units/Ml SUB-Q QHS JOB Insulin Human Regular 0 units 03/01/22 18:00 03/04/22 05:29 Insulin Regular, Human 100 Units/1 Ml SUB-Q 8 units Q6H JOB Administration Protocol Lidocaine HCl 15 ml 03/04/22 14:00 Magic Mouthwash 30ml PO TID JOB Metoclopramide HCl 5 mg 02/28/22 21:22 Metoclopramide 10 Mg/2 Ml Inj IV Q6H PRN Nausea And Vomiting Mirtazapine 15 mg 03/02/22 12:00 03/04/22 09:28 Mirtazapine 15 Mg Tab FEEDTUBE 15 mg DAILY JOB Administration Ondansetron HCl 4 mg 02/28/22 21:22 03/04/22 08:17 Ondansetron 4 Mg/2 Ml Inj IV 4 mg Q3H PRN Administration Nausea And Vomiting Oxycodone/Acetaminophen 1 tab 02/28/22 21:22 Oxycodone /Acetaminophen 5-325mg Tab PO Q6H PRN Pain, Moderate (4-6) Sodium Chloride 10 ml 02/28/22 17:08 Sodium Chloride 0.9% 10 Ml Flush Syringe IV PRN PRN LINE FLUSH Sodium Chloride 10 ml 02/28/22 22:00 03/04/22 09:28 Sodium Chloride 0.9% 10 Ml Flush Syringe IV 10 ml BID JOB Administration
[2022-03-04] MEDS: MAGIC MOUTHWASH 30ML PO SCH ×2 (13:17→20:45)
[2022-03-04] MEDS: INSULIN GLARGINE 100 UNITS/ML SUB-Q SCH (21:35)
[2022-03-05] MEDS: INSULIN REGULAR, HUMAN 100 UNITS/1 ML SUB-Q SCH ×4 (00:08→18:30)
--- NOTE | 2022-03-05 04:07 | XRay Report ---
Abdomen single view INDICATION: Abdominal pain IMPRESSION: Esophagogastric tube terminates within the mid stomach. Signer Name: Leroy Morton MD Signed: 03/05/2022 4:02 AM Workstation Name: [id number]
[2022-03-05] MEDS: hydrALAZINE 25 MG TAB FEEDTUBE SCH (05:30)
[2022-03-05] MEDS: SODIUM CHLORIDE 0.45% 1000 ML 1,000 ML IV SCH ×3 (05:34→22:44)
[2022-03-05 05:57] LABS: Hematocrit 31.5 % (35.5-45.6); Hemoglobin 10.3 gm/dl (11.8-15.2); Mean Corpuscular HGB Conc 33 % (32-34); Mean Corpuscular Volume 82 fl (84-94); Red Blood Count 3.86 M/mm3 (3.65-5.03); Red Cell Distribution Width 16.4 % (13.2-15.2)
[2022-03-05 05:59] LABS: Platelet Count 69 K/mm3 (140-440)
[2022-03-05] MEDS ORDERED: POTASSIUM PHOSPHATE 40 MMOL in SODIUM CHLORIDE 0.9% 500 ML 500 ML IV ONE (07:08)
[2022-03-05] MEDS ORDERED: MAGNESIUM SULFATE 4 GM/100 ML BAG IV ONE (07:08)
[2022-03-05] MEDS: amLODIPine 10 MG TAB PO SCH (09:28)
[2022-03-05] MEDS: hydrALAZINE 100 MG TAB PO SCH ×3 (09:28→21:09)
[2022-03-05] MEDS: FAMOTIDINE 20 MG TAB PO SCH (09:28)
[2022-03-05] MEDS: ASPIRIN 81 MG TAB CHEW PO SCH (09:28)
[2022-03-05] MEDS: MAGIC MOUTHWASH 30ML PO SCH ×3 (09:47→21:09)
--- NOTE | 2022-03-05 12:59 | Progress Note ---
Assessment and Plan Assessment and Plan Acute Renal Failure likely secondary to Prerenal etiology vs ATN secondary to Hypotension, Sepsis, Rhabdo and Dehydration in the setting of Metformin and ARB, may also have underlying CKD from DM and Hypertension Altered Mental Status DKA Diabetes Mellitus Hypertension Hypernatremia Leukocytosis/Sepsis Rhabdomyolysis Plan: s/p HD yesterday, no HD today Renal ultrasound reviewed: Slightly atrophic left kidney. No hydronephrosis, mass or stones. CXR done on admisison was clear Rhabdo-on IVF Avoid nephrotoxic agents Renally dose medications Obtain daily weights Strict I/O's daily If determined patient needs hemodialysis upon discharge then will need case lizabeth clark involvement for outpatient HD placement Subjective Date of service: 03/05/22 Principal diagnosis: ARF Interval history: Tolerated HD yesterday, NAD. Objective - Exam Narrative Exam: General appearance: other (Awake when stimulated. Confused.) EENT: ATNC, PERRL Neck: no JVD, supple Respiratory: Present: Decreased Breath Sounds Cardiology: S1S2 Gastrointestinal: normoactive bowel sounds Integumentary: warm and dry Neurologic: other (Awake but confused) Musculoskeletal: other (Has left AKA and right BKA) - Vital Signs Vital signs: Vital Signs - 12hr 03/05/22 03/05/22 03/05/22 01:00 02:01 03:00 Temperature Pulse Rate 99 H Pulse Rate [ From Monitor] Respiratory 19 Rate Respiratory 18 Rate [ Generalized] Blood Pressure 148/66 146/72 O2 Sat by Pulse 98 95 Oximetry 03/05/22 03/05/22 03/05/22 03:01 04:00 05:00 Temperature 98.9 F Pulse Rate 97 H 89 Pulse Rate [ 97 H From Monitor] Respiratory 22 29 H Rate Respiratory Rate [ Generalized] Blood Pressure 126/43 175/79 171/81 O2 Sat by Pulse 96 97 98 Oximetry 03/05/22 03/05/22 03/05/22 05:30 06:00 07:00 Temperature Pulse Rate 88 89 90 Pulse Rate [ From Monitor] Respiratory 28 H 28 H 29 H Rate Respiratory Rate [ Generalized] Blood Pressure 171/79 193/74 154/78 O2 Sat by Pulse 99 98 98 Oximetry 03/05/22 03/05/22 03/05/22 08:00 09:00 09:28 Temperature 98.7 F Pulse Rate 94 H 99 H 110 H Pulse Rate [ From Monitor] Respiratory 28 H 32 H Rate Respiratory Rate [ Generalized] Blood Pressure 151/79 158/74 158/74 O2 Sat by Pulse 97 96 Oximetry 03/05/22 03/05/22 03/05/22 10:00 11:00 12:00 Temperature 98.4 F Pulse Rate 100 H 99 H 98 H Pulse Rate [ From Monitor] Respiratory 29 H 21 24 Rate Respiratory Rate [ Generalized] Blood Pressure 156/74 130/69 160/76 O2 Sat by Pulse 96 97 99 Oximetry - Lab 03/05/22 05:30 03/05/22 05:30 Most recent lab results ABG pH 7.211 pH Units (7.350-7.450) L 02/28/22 12:18 ABG pCO2 30.8 mm Hg 02/28/22 12:18 ABG pO2 267.8 mm Hg (80.0-90.0) H 02/28/22 12:18 ABG HCO3 12.1 mmol/L (20.0-26.0) L 02/28/22 12:18 ABG O2 Saturation 99.4 % (95.0-99.0) H 02/28/22 12:18 Calcium 7.0 mg/dL (8.4-10.2) L 03/05/22 05:30 Phosphorus 2.00 mg/dL (2.5-4.5) L 03/05/22 05:30 Magnesium 1.60 mg/dL (1.7-2.3) L 03/05/22 05:30 Urine Creatinine 185.1 mg/dL (0.1-20.0) H 03/01/22 15:45 Urine Creatinine 187.2 mg/dL (0.1-20.0) H 03/01/22 15:45 Urine Sodium 68 mmol/L 03/01/22 15:45 Urine Total Protein 580 mg/dL (5-11.8) H 03/01/22 15:45 Medications & Allergies - Medications Allergies/Adverse Reactions: Allergies No Known Allergies Allergy (Verified 02/28/22 11:01) Home Medications: Home Medications Medication Instructions Recorded Confirmed Last Taken Type Aspirin [Aspirin BABY CHEW TAB] 81 mg PO QDAY 10/06/19 02/28/22 Unknown History Atorvastatin [Lipitor] 40 mg PO QDAY 10/06/19 02/28/22 Unknown History Valsartan [Diovan] 160 mg PO DAILY #30 tablet 10/08/19 02/28/22 Unknown Rx metFORMIN [Glucophage] 850 mg PO BIDDIAB #60 tablet 10/09/19 02/28/22 Unknown Rx Insulin NPH Hum/Reg Insulin Hm 28 units SQ ACHS 02/28/22 02/28/22 Unknown History Insulin NPH/Regular [NovoLIN 70/30] 25 unit SUB-Q QHS 02/28/22 02/28/22 Unknown History Losartan [Cozaar] 100 mg PO QDAY 02/28/22 02/28/22 Unknown History Mirtazapine [Remeron] 15 mg PO DAILY 02/28/22 02/28/22 Unknown History Trazodone HCl [traZODone] 300 mg PO QHS 02/28/22 02/28/22 Unknown History amLODIPine [Norvasc] 2.5 mg PO DAILY 02/28/22 02/28/22 Unknown History busPIRone [Buspar] 10 mg PO DAILY 02/28/22 02/28/22 Unknown History Active Medications: Generic Name Dose Route Start Last Admin Trade Name Freq PRN Reason Stop Dose Admin Acetaminophen 650 mg 02/28/22 21:22 03/04/22 09:28 Acetaminophen 325 Mg Tab PO 650 mg Q4H PRN Administration Pain MILD(1-3)/Fever >100.5/SHIN Amlodipine Besylate 10 mg 03/05/22 10:00 03/05/22 09:28 Amlodipine 10 Mg Tab PO 10 mg QDAY JOB Administration Aspirin 81 mg 03/02/22 10:00 03/05/22 09:28 Aspirin 81 Mg Tab Chew PO 81 mg QDAY JOB Administration Atorvastatin Calcium 40 mg 03/02/22 10:00 03/05/22 09:28 Atorvastatin 40 Mg Tab PO 40 mg QDAY JOB Administration Dextrose 50 ml 03/01/22 17:32 Dextrose 50% In Water (25gm) 50 Ml Syringe IV Q30MIN PRN Hypoglycemia Protocol Famotidine 20 mg 03/05/22 10:00 03/05/22 09:28 Famotidine 20 Mg Tab PO 20 mg QDAY JOB Administration Hydralazine HCl 10 mg 03/01/22 15:00 03/03/22 04:04 Hydralazine 20 Mg/1 Ml Inj IV 10 mg Q4HR PRN Administration Hypertension Hydralazine HCl 100 mg 03/05/22 08:00 03/05/22 09:28 Hydralazine 100 Mg Tab PO 100 mg TID JOB Administration Sodium Chloride 1,000 mls @ 125 mls/hr 03/02/22 13:00 03/05/22 05:34 Nacl 0.45% 1000 Ml IV 03/06/22 08:00 125 mls/hr DIRECT JOB Administration Potassium Phosphate 40 mmol/ 513.3333 mls @ 83 mls/hr 03/05/22 07:08 03/05/22 09:27 Sodium Chloride IV 03/05/22 13:19 83 mls/hr ONCE ONE Administration Insulin Glargine 30 units 03/04/22 22:00 03/04/22 21:35 Insulin Glargine 100 Units/Ml SUB-Q 30 units QHS JOB Administration Insulin Human Regular 0 units 03/01/22 18:00 03/05/22 12:18 Insulin Regular, Human 100 Units/1 Ml SUB-Q 4 units Q6H JOB Administration Protocol Labetalol HCl 10 mg 03/05/22 07:11 Labetalol 20 Mg/4 Ml Inj IV Q4HR PRN Hypertension Lidocaine HCl 15 ml 03/04/22 14:00 03/05/22 09:47 Magic Mouthwash 30ml PO 15 ml TID JOB Administration Metoclopramide HCl 5 mg 02/28/22 21:22 Metoclopramide 10 Mg/2 Ml Inj IV Q6H PRN Nausea And Vomiting Mirtazapine 15 mg 03/05/22 22:00 Mirtazapine 15 Mg Tab PO QHS [facility] Ondansetron HCl 4 mg 02/28/22 21:22 03/04/22 08:17 Ondansetron 4 Mg/2 Ml Inj IV 4 mg Q3H PRN Administration Nausea And Vomiting Oxycodone/Acetaminophen 1 tab 02/28/22 21:22 Oxycodone /Acetaminophen 5-325mg Tab PO Q6H PRN Pain, Moderate (4-6) Sodium Chloride 10 ml 02/28/22 17:08 Sodium Chloride 0.9% 10 Ml Flush Syringe IV PRN PRN LINE FLUSH Sodium Chloride 10 ml 02/28/22 22:00 03/05/22 09:29 Sodium Chloride 0.9% 10 Ml Flush Syringe IV 10 ml BID JOB Administration Trazodone HCl 300 mg 03/05/22 22:00 Trazodone 100 Mg Tab PO QHS JOB
[2022-03-05 16:16] LABS: Albumin 2.3 g/dL (3.8-4.8); Gamma Globulin 0.5 g/dL (0.8-1.7)
--- NOTE | 2022-03-05 16:18 | Progress Note ---
Assessment and Plan Assessment and plan: This is a 61-year-old male with DM, HTN, HLD admitted with sepsis, DKA, LATASHA, rhabdomyolysis Neuro: Acute metabolic encephalopathy (improved) -Reorientation as needed -Maintain sleep-wake cycle -As needed analgesia -CT head showed no acute intracranial process -CT C-spine showed no acute intracranial process, visualized paranasal sinuses and mastoid air cells clear -Continue home Remeron Cardiac: h/o hyperlipidemia, hypertension -Continue home amlodipine, Lipitor, hydralazine -Hold valsartan -Hydralazine as needed -Blood pressure monitoring per protocol Respiratory: Acute hypoxic respiratory failure -Presented with hypoxia on room air -Currently on nasal cannula -Supplemental oxygen as needed -Pulmonary hygiene -SPO2 monitor per protocol -CXR showed no acute process GI: Moderate protein calorie malnutrition -Failed bedside swallow evaluation -ST evaluation cleared for pured diet -24 hours + 3845 mL -PPI -Removed NGT today : Acute kidney injury likely secondary to vasomotor nephropathy may also have underlying CKD, rhabdomyolysis, hypokalemia, hypophosphatemia -Nephrology consulted, appreciate recommendations -HD per nephro -Monitor intake and output -Renally dose medications -Avoid nephrotoxic medications -FeNa 1.2 indicating intrinsic cause for renal failure -Renal ultrasound slightly atrophic left kidney, no hydronephrosis, masses or stones -We will hold DELFIN/ARB -MIVF -Trend BMP and CK ID: Sepsis (POA), resolved -Presented with lactic acidosis, leukocytosis, hypotension, pyuria on UA -Stopped abx (rocephin) -f/u blood culture, urine culture -UA with some pyuria -Monitor WBC and temperature curve Endo: DKA, h/o DM -Presented with venous pH 7.116, anion gap 35, blood glucose 1447 -s/p DKA protocol -S/p insulin drip -Transitioned to SSI and long-acting insulin -Accu-Cheks ACHS -Avoid hypoglycemia -Hemoglobin A1c 12.5 Heme: Leukocytosis (resolved), thrombocytopenia -Trend CBC -Transfuse hemoglobin less than 7 -SCDs to BLE while in bed The high probability of a clinically significant, sudden or life threatening deterioration of the [multi] system(s) required my full and direct attention, intervention and personal management. The aggregate critical care time was [60] minutes. This time is in addition to time spent performing reported procedures but includes the following: [x] Data Review and interpretation [x] Patient assessment and monitoring of vital signs [x] Documentation [x] Medication orders and management Disposition Plan: transfer to floor Total Time Spent with Patient (Minutes): 60 History Interval history: This is a 61-year-old male with diabetes, hypertension, hyperlipidemia, s/p bilateral traumatic amputation of lower extremities, and has slurred speech at baseline who presents to the emergency department on 02/28 via EMS for altered me ntal status. On arrival to the emergency department blood pressure was noted to be 80/60 with oxygen saturations of 74% on room air consistent with acute hypoxic respiratory failure. Lab work was consistent with DKA, hypernatremia, leukocytosis, acute kidney injury, sepsis, rhabdomyolysis. Patient was admitted to the hospital service with consults to CCM and nephrology. Hospital course to date: 03/01: Patient failed bedside swallow evaluation and will be kept NPO. NG tube to be placed by RN with consult to nutrition for tube feeding. Formalized evaluation pending. Patient's anion gap noted to be closed. Due to n.p.o. status, hypernatremia and need for insulin and rhabdo, MIVF changed to 1/2 NS. Patient was also given LR bolus today. 03/02: Patient remains confused, hypernatremia and rhabdomyolysis is improved however renal function has worsened. Patient was given IV insulin for hyperglycemia and will increase Lantus. RN to start TF when able. Patient will be transferred to IMCU. Hydralazine IV as needed, hydralazine p.o. and increase in amlodipine for hypertension. Bilateral respirations events overnight as patient removed NG tube which was replaced. Patient will be on half-normal saline at 125 for rhabdomyolysis. Nephrology plans to initiate hemodialysis. 03/03: CK continues to decrease, CR decreased to 3.8 but increased to 5. Tolerated HD yesterday. Patient seems to be more alert today. Remains in IMCU. Tube feedings resumed. Increasing Lantus. Increase in hydralazine and amlodipine. Possible transfer to floor tomorrow. 03/04: Patient seems more awake and alert today, patient had large volume emesis and RN instructed to leave tube feeding off and give p.o. as tolerated. Does have as needed Reglan. Patient noted to have a bloody nose and his platelets are downtrending at 75 today. We will continue to monitor. On chart review it does not seem that he had heparin exposure during stay therefore HIT was not sent. We will continue to monitor. Possible transfer to the floor today. Increase in hydral.. 03/05: Increase in antihypertensives due to hypertension, will discontinue IV fluids till tomorrow morning as CK has trended down significantly. We will repeat potassium and phosphorus with K-Phos. RN to remove NG tube as patient is more alert and taking p.o. intake. Will transfer to the floor. Thrombocytopenia persists Hospitalist Physical - Constitutional Vitals: Temp Pulse Resp BP Pulse Ox 98.4 F 100 H 20 134/84 98 03/05/22 12:00 03/05/22 15:00 03/05/22 15:00 03/05/22 15:00 03/05/22 15:00 General appearance: Present: no acute distress - EENT Eyes: Present: PERRL, EOM intact ENT: hearing intact, poor dentition - Neck Neck: Present: normal ROM - Respiratory Respiratory effort: normal Respiratory: bilateral: CTA - Cardiovascular Rhythm: regular Heart Sounds: Present: S1 & S2. Absent: systolic murmur, diastolic murmur - Extremities Extremities: no ischemia, pulses intact, pulses symmetrical, No edema, normal temperature, normal color Peripheral Pulses: abnormal - Peripheral pulses dorsalis pedis Pulse Strength: Absent posterial tibial Pulse Strength: Absent - Abdominal General gastrointestinal: soft, non-tender, non-distended, normal bowel sounds - Integumentary Integumentary: Present: warm, dry - Psychiatric Psychiatric: cooperative - Neurologic Neurologic: CNII-XII intact, no focal deficits, moves all extremities - Allied Health Allied health notes reviewed: nursing HEART Score - HEART Score Troponin: Troponin T 0.014 ng/mL (0.00-0.029) 02/28/22 15:27 Results - Labs CBC & Chem 7: 03/05/22 05:30 03/05/22 05:30 Labs: Laboratory Last Values WBC 5.1 K/mm3 (4.5-11.0) 03/05/22 05:30 RBC 3.86 M/mm3 (3.65-5.03) 03/05/22 05:30 Hgb 10.3 gm/dl (11.8-15.2) L 03/05/22 05:30 Hct 31.5 % (35.5-45.6) L 03/05/22 05:30 MCV 82 fl (84-94) L 03/05/22 05:30 MCH 27 pg (28-32) L 03/05/22 05:30 MCHC 33 % (32-34) 03/05/22 05:30 RDW 16.4 % (13.2-15.2) H 03/05/22 05:30 Plt Count 69 K/mm3 (140-440) L 03/05/22 05:30 Add Manual Diff Complete 02/28/22 11:54 Total Counted 100 02/28/22 11:54 Seg Neuts % (Manual) 94.0 % (40.0-70.0) H 02/28/22 11:54 Band Neutrophils % 2.0 % 02/28/22 11:54 Lymphocytes % (Manual) 1.0 % (13.4-35.0) L 02/28/22 11:54 Reactive Lymphs % (Man) 0 % 02/28/22 11:54 Monocytes % (Manual) 3.0 % (0.0-7.3) 02/28/22 11:54 Eosinophils % (Manual) 0 % (0.0-4.3) 02/28/22 11:54 Basophils % (Manual) 0 % (0.0-1.8) 02/28/22 11:54 Metamyelocytes % 0 % 02/28/22 11:54 Myelocytes % 0 % 02/28/22 11:54 Promyelocytes % 0 % 02/28/22 11:54 Blast Cells % 0 % 02/28/22 11:54 Nucleated RBC % Not Reportable 02/28/22 11:54 Seg Neutrophils # Man 10.7 K/mm3 (1.8-7.7) H 02/28/22 11:54 Band Neutrophils # 0.2 K/mm3 02/28/22 11:54 Lymphocytes # (Manual) 0.1 K/mm3 (1.2-5.4) L 02/28/22 11:54 Abs React Lymphs (Man) 0.0 K/mm3 02/28/22 11:54 Monocytes # (Manual) 0.3 K/mm3 (0.0-0.8) 02/28/22 11:54 Eosinophils # (Manual) 0.0 K/mm3 (0.0-0.4) 02/28/22 11:54 Basophils # (Manual) 0.0 K/mm3 (0.0-0.1) 02/28/22 11:54 Metamyelocytes # 0.0 K/mm3 02/28/22 11:54 Myelocytes # 0.0 K/mm3 02/28/22 11:54 Promyelocytes # 0.0 K/mm3 02/28/22 11:54 Blast Cells # 0.0 K/mm3 02/28/22 11:54 WBC Morphology Not Reportable 02/28/22 11:54 Hypersegmented Neuts Not Reportable 02/28/22 11:54 Hyposegmented Neuts Not Reportable 02/28/22 11:54 Hypogranular Neuts Not Reportable 02/28/22 11:54 Smudge Cells Not Reportable 02/28/22 11:54 Toxic Granulation Not Reportable 02/28/22 11:54 Toxic Vacuolation Not Reportable 02/28/22 11:54 Dohle Bodies Not Reportable 02/28/22 11:54 Pelger-Huet Anomaly Not Reportable 02/28/22 11:54 Perla Rods Not Reportable 02/28/22 11:54 Platelet Estimate Consistent w auto 02/28/22 11:54 Clumped Platelets Not Reportable 02/28/22 11:54 Plt Clumps, EDTA Not Reportable 02/28/22 11:54 Large Platelets Few 02/28/22 11:54 Giant Platelets Not Reportable 02/28/22 11:54 Platelet Satelliting Not Reportable 02/28/22 11:54 Plt Morphology Comment Not Reportable 02/28/22 11:54 RBC Morphology Normal 02/28/22 11:54 Dimorphic RBCs Not Reportable 02/28/22 11:54 Polychromasia Not Reportable 02/28/22 11:54 Hypochromasia Not Reportable 02/28/22 11:54 Poikilocytosis Not Reportable 02/28/22 11:54 Anisocytosis Not Reportable 02/28/22 11:54 Microcytosis Not Reportable 02/28/22 11:54 Macrocytosis Not Reportable 02/28/22 11:54 Spherocytes Not Reportable 02/28/22 11:54 Pappenheimer Bodies Not Reportable 02/28/22 11:54 Sickle Cells Not Reportable 02/28/22 11:54 Target Cells Not Reportable 02/28/22 11:54 Tear Drop Cells Not Reportable 02/28/22 11:54 Ovalocytes Not Reportable 02/28/22 11:54 Helmet Cells Not Reportable 02/28/22 11:54 [place] Bodies Not Reportable 02/28/22 11:54 [place] Rings Not Reportable 02/28/22 11:54 Jose Cells Not Reportable 02/28/22 11:54 Bite Cells Not Reportable 02/28/22 11:54 Crenated Cell Not Reportable 02/28/22 11:54 Elliptocytes Not Reportable 02/28/22 11:54 Acanthocytes (Spur) Not Reportable 02/28/22 11:54 Rouleaux Not Reportable 02/28/22 11:54 Hemoglobin C Crystals Not Reportable 02/28/22 11:54 Schistocytes Not Reportable 02/28/22 11:54 Malaria parasites Not Reportable 02/28/22 11:54 Josef Bodies Not Reportable 02/28/22 11:54 Hem Pathologist Commnt No 02/28/22 11:54 PT 15.9 Sec. (12.2-14.9) H 02/28/22 13:00 INR 1.14 (0.87-1.13) H 02/28/22 13:00 APTT 24.7 Sec. (24.2-36.6) 02/28/22 13:00 ABG pH 7.211 pH Units (7.350-7.450) L 02/28/22 12:18 ABG pCO2 30.8 mm Hg 02/28/22 12:18 ABG pO2 267.8 mm Hg (80.0-90.0) H 02/28/22 12:18 ABG HCO3 12.1 mmol/L (20.0-26.0) L 02/28/22 12:18 ABG O2 Saturation 99.4 % (95.0-99.0) H 02/28/22 12:18 ABG O2 Content 22.8 (0.0-44) 02/28/22 12:18 ABG Base Excess -14.3 mmol/L (-2.0-3.0) L 02/28/22 12:18 ABG Hemoglobin 16.2 gm/dl (14.0-18.0) 02/28/22 12:18 ABG Carboxyhemoglobin 1.4 % (0.0-5.0) 02/28/22 12:18 ABG Methemoglobin 0.7 % (0.0-1.5) 02/28/22 12:18 VBG pH 7.116 (7.320-7.420) L* 02/28/22 11:54 Oxyhemoglobin 97.4 % (95.0-99.0) 02/28/22 12:18 FiO2 100 % 02/28/22 12:18 Sodium 136 mmol/L (137-145) L 03/05/22 05:30 Potassium 3.0 mmol/L (3.6-5.0) L 03/05/22 05:30 Chloride 99.0 mmol/L (98-107) 03/05/22 05:30 Carbon Dioxide 25 mmol/L (22-30) 03/05/22 05:30 Anion Gap 15 mmol/L 03/05/22 05:30 BUN 24 mg/dL (9-20) H 03/05/22 05:30 Creatinine 3.9 mg/dL (0.8-1.3) H 03/05/22 05:30 Estimated GFR 19 ml/min 03/05/22 05:30 BUN/Creatinine Ratio 6 % 03/05/22 05:30 Glucose 178 mg/dL (75-100) H 03/05/22 05:30 POC Glucose 229 mg/dL (70-105) H 03/05/22 12:04 Hemoglobin A1c 12.5 % (4-6) H 03/01/22 14:46 Lactic Acid 4.70 mmol/L (0.7-2.0) H* 02/28/22 23:08 Calcium 7.0 mg/dL (8.4-10.2) L 03/05/22 05:30 Phosphorus 2.00 mg/dL (2.5-4.5) L 03/05/22 05:30 Magnesium 1.60 mg/dL (1.7-2.3) L 03/05/22 05:30 Total Bilirubin 0.20 mg/dL (0.1-1.2) 02/28/22 15:27 AST 47 units/L (5-40) H 02/28/22 15:27 ALT 22 units/L (7-56) 02/28/22 15:27 Alkaline Phosphatase 173 units/L (35-129) H 02/28/22 15:27 Ammonia 66.0 umol/L (25-60) H 02/28/22 11:54 Total Creatine Kinase 1647 units/L (55-170) H 03/05/22 05:30 Troponin T 0.014 ng/mL (0.00-0.029) 02/28/22 15:27 Total Protein 6.3 g/dL (6.3-8.2) 02/28/22 15:27 Albumin 3.8 g/dL (3.9-5) L 02/28/22 15:27 Albumin/Globulin Ratio 1.5 % 02/28/22 15:27 Phospholipids 178 mg/dL (151-264) 02/28/22 11:54 TSH 1.170 mlU/mL (0.270-4.200) 02/28/22 14:53 Free T4 1.32 ng/dL (0.76-1.46) 02/28/22 14:53 Urine Color Straw (Yellow) 02/28/22 Unknown Urine Turbidity Slightly cloudy (Clear) 02/28/22 Unknown Specific [place] (Man) 1.010 (1.003-1.030) 02/28/22 Unknown Ur Protein (Man) 2+ mg/dL (Negative) 02/28/22 Unknown Ur Ketones (Man) 5 (Negative) 02/28/22 Unknown Urine Bilirubin (Man) Negative (Negative) 02/28/22 Unknown Urine WBC (Auto) 9.0 /HPF (0.0-6.0) H 02/28/22 Unknown Urine RBC (Auto) 2.0 /HPF (0.0-6.0) 02/28/22 Unknown U Epithel Cells (Auto) 12.0 /HPF (0-13.0) 02/28/22 Unknown Urine Bacteria (Auto) 1+ /HPF (Negative) 02/28/22 Unknown Urine RBC (Manual) 3+ (Negative) 02/28/22 Unknown Urine Mucus Few /HPF 02/28/22 Unknown Urine Eosinophils Rare (None Seen) 03/01/22 15:45 Urine Creatinine 185.1 mg/dL (0.1-20.0) H 03/01/22 15:45 Urine Creatinine 187.2 mg/dL (0.1-20.0) H 03/01/22 15:45 Protein/Creatinin Ratio 3.13 03/01/22 15:45 Urine Sodium 68 mmol/L 03/01/22 15:45 Urine Urea Nitrogen 179 03/01/22 15:45 Urine Total Protein 580 mg/dL (5-11.8) H 03/01/22 15:45 Random Vancomycin 17.3 ug/mL (0-40.0) 03/02/22 04:27 Hepatitis A IgM Ab Non-reactive (NonReactive) 03/02/22 04:27 Hep Bs Antigen Non-reactive (Negative) 03/02/22 04:27 Hep B Core IgM Ab Non-reactive (NonReactive) 03/02/22 04:27 Hepatitis C Antibody Non-reactive (NonReactive) 03/02/22 04:27 Miscellaneous Test Flexitest 1 H 03/02/22 04:27 Microbiology: Microbiology 02/28/22 11:54 Peripheral/Venous Blood Culture - Final NO GROWTH AFTER 5 DAYS 02/28/22 11:54 Peripheral/Venous Blood Culture - Final NO GROWTH AFTER 5 DAYS 02/28/22 Unknown Urine,Clean Catch Urine Culture - Final Mejias/IV: Voiding Method Incontinent Active Medications - Current Medications Current Medications: Generic Name Dose Route Start Last Admin Trade Name Freq PRN Reason Stop Dose Admin Acetaminophen 650 mg 02/28/22 21:22 03/04/22 09:28 Acetaminophen 325 Mg Tab PO 650 mg Q4H PRN Administration Pain MILD(1-3)/Fever >100.5/SHIN Amlodipine Besylate 10 mg 03/05/22 10:00 03/05/22 09:28 Amlodipine 10 Mg Tab PO 10 mg QDAY JOB Administration Aspirin 81 mg 03/02/22 10:00 03/05/22 09:28 Aspirin 81 Mg Tab Chew PO 81 mg QDAY JOB Administration Atorvastatin Calcium 40 mg 03/02/22 10:00 03/05/22 09:28 Atorvastatin 40 Mg Tab PO 40 mg QDAY JOB Administration Dextrose 50 ml 03/01/22 17:32 Dextrose 50% In Water (25gm) 50 Ml Syringe IV Q30MIN PRN Hypoglycemia Protocol Famotidine 20 mg 03/05/22 10:00 03/05/22 09:28 Famotidine 20 Mg Tab PO 20 mg QDAY JOB Administration Hydralazine HCl 10 mg 03/01/22 15:00 03/03/22 04:04 Hydralazine 20 Mg/1 Ml Inj IV 10 mg Q4HR PRN Administration Hypertension Hydralazine HCl 100 mg 03/05/22 08:00 03/05/22 14:56 Hydralazine 100 Mg Tab PO 100 mg TID JOB Administration Sodium Chloride 1,000 mls @ 125 mls/hr 03/02/22 13:00 03/05/22 14:56 Nacl 0.45% 1000 Ml IV 03/06/22 08:00 125 mls/hr DIRECT JOB Administration Insulin Glargine 30 units 03/04/22 22:00 03/04/22 21:35 Insulin Glargine 100 Units/Ml SUB-Q 30 units QHS [facility] Administration Insulin Human Regular 0 units 03/01/22 18:00 03/05/22 12:18 Insulin Regular, Human 100 Units/1 Ml SUB-Q 4 units Q6H JOB Administration Protocol Labetalol HCl 10 mg 03/05/22 07:11 Labetalol 20 Mg/4 Ml Inj IV Q4HR PRN Hypertension Lidocaine HCl 15 ml 03/04/22 14:00 03/05/22 14:56 Magic Mouthwash 30ml PO 15 ml TID JOB Administration Metoclopramide HCl 5 mg 02/28/22 21:22 Metoclopramide 10 Mg/2 Ml Inj IV Q6H PRN Nausea And Vomiting Mirtazapine 15 mg 03/05/22 22:00 Mirtazapine 15 Mg Tab PO QHS [facility] Ondansetron HCl 4 mg 02/28/22 21:22 03/04/22 08:17 Ondansetron 4 Mg/2 Ml Inj IV 4 mg Q3H PRN Administration Nausea And Vomiting Oxycodone/Acetaminophen 1 tab 02/28/22 21:22 Oxycodone /Acetaminophen 5-325mg Tab PO Q6H PRN Pain, Moderate (4-6) Sodium Chloride 10 ml 02/28/22 17:08 Sodium Chloride 0.9% 10 Ml Flush Syringe IV PRN PRN LINE FLUSH Sodium Chloride 10 ml 02/28/22 22:00 03/05/22 09:29 Sodium Chloride 0.9% 10 Ml Flush Syringe IV 10 ml BID JOB Administration Trazodone HCl 300 mg 03/05/22 22:00 Trazodone 100 Mg Tab PO QHS [facility] Nutrition/Malnutrition Assess - Dietary Evaluation Nutrition/Malnutrition Findings: Nutrition Notes Start: 03/01/22 15:08 Freq: Status: Active Protocol: Document 03/03/22 15:03 JANICE (Rec: 03/03/22 15:11 NHALL [id number]) Nutrition Notes Initial or Follow up Reassessment Current Diagnosis Acute Kidney Injury,Diabetes, Sepsis,Hypertension, Hyperlipidemia Other Pertinent Diagnosis Acute metabolic encephalopathy Current Diet TF (Nepro at 25ml/hr) + Pureed Labs/Tests BUN 50 Cr 5 BG 396 Pertinent Medications Reviewed Height 4 ft 11 in Weight 72.1 kg [place] Body Weight (kg) 45.45 BMI 32.1 Weight change and time frame AdjBW for bilat BKA: 81.746kg Adj BMI: 36.3 Weight Status Obese Subjective/Other Information Per [facility] evaluation yesterday, pt ok for pureed diet with nectar-thick liquids. Burn Absent Trauma Absent #1 Nutrition Diagnosis Swallowing difficulty As Evidenced by Signs and Symptoms [facility] recommended pureed diet Diagnosis Progress(for reassessment Resolved documentation) Is patient on ventilator? No Is Patient Ambulatory and/or Out of Bed No REE-([facility]-confined to bed) 1622.328 Kcal/Kg value to use for calculation 16 Approximate Energy Requirements Using 1154 kcal/Kg Calculation Used for Recommendations Kcal/kg Additional Notes Pro needs >1.2g/kg adjBW: >71g /day Fluid needs 1-1.5L/day Nutrition Intervention Change Diet Order: Continue pureed diet as tolerated Nutrition Support: Continue TF as needed Goal #1 PO tolerance Goal #2 PO intake to meet at least 75% energy and pro needs Goal #3 TF tolerance Follow-Up By: 03/06/22 Additional Comments F/U: PO intake, TF tolerance
[2022-03-05] MEDS: traZODone 100 MG TAB PO SCH (21:09)
[2022-03-05] MEDS: MIRTAZAPINE 15 MG TAB PO SCH (21:09)
[2022-03-05] MEDS: INSULIN GLARGINE 100 UNITS/ML SUB-Q SCH (21:10)
[2022-03-06] MEDS: INSULIN REGULAR, HUMAN 100 UNITS/1 ML SUB-Q SCH ×4 (00:05→18:35)
--- NOTE | 2022-03-06 08:29 | Progress Note ---
Assessment and Plan Assessment and plan: History Interval history: This is a 61-year-old male with diabetes, hypertension, hyperlipidemia, s/p bilateral traumatic amputation of lower extremities, and has slurred speech at baseline who presents to the emergency department on 02/28 via EMS for altered mental status. On arrival to the emergency department blood pressure was noted to be 80/60 with oxygen saturations of 74% on room air consistent with acute hypoxic respiratory failure. Lab work was consistent with DKA, hypernatremia, leukocytosis, acute kidney injury, sepsis, rhabdomyolysis. Patient was admitted to the hospital service with consults to [facility] and nephrology. Hospital course to date: 03/01: Patient failed bedside swallow evaluation and will be kept NPO. NG tube to be placed by RN with consult to nutrition for tube feeding. Formalized evaluation pending. Patient's anion gap noted to be closed. Due to n.p.o. status, hypernatremia and need for insulin and rhabdo, MIVF changed to 1/2 NS. Patient was also given LR bolus today. 03/02: Patient remains confused, hypernatremia and rhabdomyolysis is improved however renal function has worsened. Patient was given IV insulin for hyperglycemia and will increase Lantus. RN to start TF when able. Patient will be transferred to IMCU. Hydralazine IV as needed, hydralazine p.o. and increase in amlodipine for hypertension. Bilateral respirations events overnight as patient removed NG tube which was replaced. Patient will be on half-normal saline at 125 for rhabdomyolysis. Nephrology plans to initiate hemodialysis. 03/03: CK continues to decrease, CR decreased to 3.8 but increased to 5. Tolerated HD yesterday. Patient seems to be more alert today. Remains in IMCU. Tube feedings resumed. Increasing Lantus. Increase in hydralazine and amlodipine. Possible transfer to floor tomorrow. 03/04: Patient seems more awake and alert today, patient had large volume emesis and RN instructed to leave tube feeding off and give p.o. as tolerated. Does have as needed Reglan. Patient noted to have a bloody nose and his platelets are downtrending at 75 today. We will continue to monitor. On chart review it does not seem that he had heparin exposure during stay therefore HIT was not sent. We will continue to monitor. Possible transfer to the floor today. Increase in hydral.. 03/05: Increase in antihypertensives due to hypertension, will discontinue IV fluids till tomorrow morning as CK has trended down significantly. We will repeat potassium and phosphorus with K-Phos. RN to remove NG tube as patient is more alert and taking p.o. intake. Will transfer to the floor. Thrombocytopenia persists 03/06: Awaiting completion of AM labs, specifically potassium and platelet count. If platelet count drops further, will order HIT panel and consult hematology. Can d/c NG tube as patient cleared by ST for diet. Patient presented from home, may need SNF vs HHC. Discussed with CM this AM. Assessment and plan: This is a 61-year-old male with DM, HTN, HLD admitted with sepsis, DKA, LATASHA, rhabdomyolysis Neuro: Acute metabolic encephalopathy (improved) - AOX3. unable to recite year for some reason, but able to recite name, location, circumstances of admission, president. -Reorientation as needed -Maintain sleep-wake cycle -As needed analgesia -CT head showed no acute intracranial process -CT C-spine showed no acute intracranial process, visualized paranasal sinuses and mastoid air cells clear -Continue home Remeron Cardiac: h/o hyperlipidemia, hypertension -Continue home amlodipine, Lipitor, hydralazine -Hold valsartan -Hydralazine as needed -Blood pressure monitoring per protocol Respiratory: Acute hypoxic respiratory failure (resolved) -Presented with hypoxia on nasal cannula, now on room air -Supplemental oxygen as needed -Pulmonary hygiene -SPO2 monitor per protocol -CXR showed no acute process GI: Moderate protein calorie malnutrition -Failed bedside swallow evaluation initially -ST evaluation cleared for pured diet -24 hours + 3845 mL -PPI -d/c NGT : Acute kidney injury likely secondary to vasomotor nephropathy may also have underlying CKD, rhabdomyolysis, hypokalemia, hypophosphatemia -Nephrology consulted, appreciate recommendations -HD per nephro -Monitor intake and output -Renally dose medications -Avoid nephrotoxic medications -FeNa 1.2 indicating intrinsic cause for renal failure -Renal ultrasound slightly atrophic left kidney, no hydronephrosis, masses or stones -We will hold DELFIN/ARB -MIVF -Trend BMP and CK ID: Sepsis (POA), resolved -Presented with lactic acidosis, leukocytosis, hypotension, pyuria on UA -Stopped abx (rocephin) -f/u blood culture, urine culture -UA with some pyuria -Monitor WBC and temperature curve Endo: DKA (resolved), h/o DM -Presented with venous pH 7.116, anion gap 35, blood glucose 1447 -s/p DKA protocol -S/p insulin drip -Transitioned to SSI and long-acting insulin -Accu-Cheks ACHS -Avoid hypoglycemia -Hemoglobin A1c 12.5 Heme: Leukocytosis (resolved), thrombocytopenia (worsening) -Trend CBC -Transfuse hemoglobin less than 7 -SCDs to BLE while in bed History Interval history: No acute complaints this AM. Patient resting comfortably. Hospitalist Physical - Physical exam Narrative exam: General appearance: Present: no acute distress - EENT Eyes: Present: PERRL, EOM intact ENT: hearing intact, poor dentition - Neck Neck: Present: normal ROM - Respiratory Respiratory effort: normal Respiratory: bilateral: CTA - Cardiovascular Rhythm: regular Heart Sounds: Present: S1 & S2. Absent: systolic murmur, diastolic murmur - Extremities Extremities: no ischemia, pulses intact, pulses symmetrical, No edema, normal temperature, normal color Peripheral Pulses: abnormal - Peripheral pulses dorsalis pedis Pulse Strength: Absent posterial tibial Pulse Strength: Absent - Abdominal General gastrointestinal: soft, non-tender, non-distended, normal bowel sounds - Integumentary Integumentary: Present: warm, dry - Psychiatric Psychiatric: cooperative - Neurologic Neurologic: CNII-XII intact, no focal deficits, moves all extremities - Allied Health Allied health notes reviewed: nursing - Constitutional Vitals: Temp Pulse Resp BP Pulse Ox 98.7 F 95 H 16 153/74 94 03/06/22 04:17 03/06/22 04:17 03/06/22 04:17 03/06/22 04:17 03/06/22 04:17 General appearance: Present: no acute distress HEART Score - HEART Score Troponin: Troponin T 0.014 ng/mL (0.00-0.029) 02/28/22 15:27 Results - Labs CBC & Chem 7: 03/06/22 10:57 03/05/22 05:30 Labs: Laboratory Last Values WBC 5.1 K/mm3 (4.5-11.0) 03/05/22 05:30 RBC 3.86 M/mm3 (3.65-5.03) 03/05/22 05:30 Hgb 10.3 gm/dl (11.8-15.2) L 03/05/22 05:30 Hct 31.5 % (35.5-45.6) L 03/05/22 05:30 MCV 82 fl (84-94) L 03/05/22 05:30 MCH 27 pg (28-32) L 03/05/22 05:30 MCHC 33 % (32-34) 03/05/22 05:30 RDW 16.4 % (13.2-15.2) H 03/05/22 05:30 Plt Count 69 K/mm3 (140-440) L 03/05/22 05:30 Add Manual Diff Complete 02/28/22 11:54 Total Counted 100 02/28/22 11:54 Seg Neuts % (Manual) 94.0 % (40.0-70.0) H 02/28/22 11:54 Band Neutrophils % 2.0 % 02/28/22 11:54 Lymphocytes % (Manual) 1.0 % (13.4-35.0) L 02/28/22 11:54 Reactive Lymphs % (Man) 0 % 02/28/22 11:54 Monocytes % (Manual) 3.0 % (0.0-7.3) 02/28/22 11:54 Eosinophils % (Manual) 0 % (0.0-4.3) 02/28/22 11:54 Basophils % (Manual) 0 % (0.0-1.8) 02/28/22 11:54 Metamyelocytes % 0 % 02/28/22 11:54 Myelocytes % 0 % 02/28/22 11:54 Promyelocytes % 0 % 02/28/22 11:54 Blast Cells % 0 % 02/28/22 11:54 Nucleated RBC % Not Reportable 02/28/22 11:54 Seg Neutrophils # Man 10.7 K/mm3 (1.8-7.7) H 02/28/22 11:54 Band Neutrophils # 0.2 K/mm3 02/28/22 11:54 Lymphocytes # (Manual) 0.1 K/mm3 (1.2-5.4) L 02/28/22 11:54 Abs React Lymphs (Man) 0.0 K/mm3 02/28/22 11:54 Monocytes # (Manual) 0.3 K/mm3 (0.0-0.8) 02/28/22 11:54 Eosinophils # (Manual) 0.0 K/mm3 (0.0-0.4) 02/28/22 11:54 Basophils # (Manual) 0.0 K/mm3 (0.0-0.1) 02/28/22 11:54 Metamyelocytes # 0.0 K/mm3 02/28/22 11:54 Myelocytes # 0.0 K/mm3 02/28/22 11:54 Promyelocytes # 0.0 K/mm3 02/28/22 11:54 Blast Cells # 0.0 K/mm3 02/28/22 11:54 WBC Morphology Not Reportable 02/28/22 11:54 Hypersegmented Neuts Not Reportable 02/28/22 11:54 Hyposegmented Neuts Not Reportable 02/28/22 11:54 Hypogranular Neuts Not Reportable 02/28/22 11:54 Smudge Cells Not Reportable 02/28/22 11:54 Toxic Granulation Not Reportable 02/28/22 11:54 Toxic Vacuolation Not Reportable 02/28/22 11:54 Dohle Bodies Not Reportable 02/28/22 11:54 Pelger-Huet Anomaly Not Reportable 02/28/22 11:54 Perla Rods Not Reportable 02/28/22 11:54 Platelet Estimate Consistent w auto 02/28/22 11:54 Clumped Platelets Not Reportable 02/28/22 11:54 Plt Clumps, EDTA Not Reportable 02/28/22 11:54 Large Platelets Few 02/28/22 11:54 Giant Platelets Not Reportable 02/28/22 11:54 Platelet Satelliting Not Reportable 02/28/22 11:54 Plt Morphology Comment Not Reportable 02/28/22 11:54 RBC Morphology Normal 02/28/22 11:54 Dimorphic RBCs Not Reportable 02/28/22 11:54 Polychromasia Not Reportable 02/28/22 11:54 Hypochromasia Not Reportable 02/28/22 11:54 Poikilocytosis Not Reportable 02/28/22 11:54 Anisocytosis Not Reportable 02/28/22 11:54 Microcytosis Not Reportable 02/28/22 11:54 Macrocytosis Not Reportable 02/28/22 11:54 Spherocytes Not Reportable 02/28/22 11:54 Pappenheimer Bodies Not Reportable 02/28/22 11:54 Sickle Cells Not Reportable 02/28/22 11:54 Target Cells Not Reportable 02/28/22 11:54 Tear Drop Cells Not Reportable 02/28/22 11:54 Ovalocytes Not Reportable 02/28/22 11:54 Helmet Cells Not Reportable 02/28/22 11:54 [place] Bodies Not Reportable 02/28/22 11:54 [place] Rings Not Reportable 02/28/22 11:54 [place] Cells Not Reportable 02/28/22 11:54 Bite Cells Not Reportable 02/28/22 11:54 Crenated Cell Not Reportable 02/28/22 11:54 Elliptocytes Not Reportable 02/28/22 11:54 Acanthocytes (Spur) Not Reportable 02/28/22 11:54 Rouleaux Not Reportable 02/28/22 11:54 Hemoglobin C Crystals Not Reportable 02/28/22 11:54 Schistocytes Not Reportable 02/28/22 11:54 Malaria parasites Not Reportable 02/28/22 11:54 Josfe Bodies Not Reportable 02/28/22 11:54 Hem Pathologist Commnt No 02/28/22 11:54 PT 15.9 Sec. (12.2-14.9) H 02/28/22 13:00 INR 1.14 (0.87-1.13) H 02/28/22 13:00 APTT 24.7 Sec. (24.2-36.6) 02/28/22 13:00 ABG pH 7.211 pH Units (7.350-7.450) L 02/28/22 12:18 ABG pCO2 30.8 mm Hg 02/28/22 12:18 ABG pO2 267.8 mm Hg (80.0-90.0) H 02/28/22 12:18 ABG HCO3 12.1 mmol/L (20.0-26.0) L 02/28/22 12:18 ABG O2 Saturation 99.4 % (95.0-99.0) H 02/28/22 12:18 ABG O2 Content 22.8 (0.0-44) 02/28/22 12:18 ABG Base Excess -14.3 mmol/L (-2.0-3.0) L 02/28/22 12:18 ABG Hemoglobin 16.2 gm/dl (14.0-18.0) 02/28/22 12:18 ABG Carboxyhemoglobin 1.4 % (0.0-5.0) 02/28/22 12:18 ABG Methemoglobin 0.7 % (0.0-1.5) 02/28/22 12:18 VBG pH 7.116 (7.320-7.420) L* 02/28/22 11:54 Oxyhemoglobin 97.4 % (95.0-99.0) 02/28/22 12:18 FiO2 100 % 02/28/22 12:18 Sodium 136 mmol/L (137-145) L 03/05/22 05:30 Potassium 3.0 mmol/L (3.6-5.0) L 03/05/22 05:30 Chloride 99.0 mmol/L (98-107) 03/05/22 05:30 Carbon Dioxide 25 mmol/L (22-30) 03/05/22 05:30 Anion Gap 15 mmol/L 03/05/22 05:30 BUN 24 mg/dL (9-20) H 03/05/22 05:30 Creatinine 3.9 mg/dL (0.8-1.3) H 03/05/22 05:30 Estimated GFR 19 ml/min 03/05/22 05:30 BUN/Creatinine Ratio 6 % 03/05/22 05:30 Glucose 178 mg/dL (75-100) H 03/05/22 05:30 POC Glucose 221 mg/dL (70-105) H 03/05/22 23:19 Hemoglobin A1c 12.5 % (4-6) H 03/01/22 14:46 Lactic Acid 4.70 mmol/L (0.7-2.0) H* 02/28/22 23:08 Calcium 7.0 mg/dL (8.4-10.2) L 03/05/22 05:30 Phosphorus 2.00 mg/dL (2.5-4.5) L 03/05/22 05:30 Magnesium 1.60 mg/dL (1.7-2.3) L 03/05/22 05:30 Total Bilirubin 0.20 mg/dL (0.1-1.2) 02/28/22 15:27 AST 47 units/L (5-40) H 02/28/22 15:27 ALT 22 units/L (7-56) 02/28/22 15:27 Alkaline Phosphatase 173 units/L (35-129) H 02/28/22 15:27 Ammonia 66.0 umol/L (25-60) H 02/28/22 11:54 Total Creatine Kinase 1647 units/L (55-170) H 03/05/22 05:30 Troponin T 0.014 ng/mL (0.00-0.029) 02/28/22 15:27 Serum Total Protein 4.8 g/dL (6.1-8.1) L 03/02/22 04:27 Total Protein 6.3 g/dL (6.3-8.2) 02/28/22 15:27 Albumin 2.3 g/dL (3.8-4.8) L 03/02/22 04:27 Albumin/Globulin Ratio 1.5 % 02/28/22 15:27 Nrgat-5-Dcgnqzjiu 0.4 g/dL (0.2-0.3) H 03/02/22 04:27 Hdmqw-3-Beolvvxxt 0.8 g/dL (0.5-0.9) 03/02/22 04:27 Beta Globulins 0.4 g/dL (0.2-0.5) 03/02/22 04:27 Gamma Globulins 0.5 g/dL (0.8-1.7) L 03/02/22 04:27 Abnorm Protein Band 1 see below 03/02/22 04:27 PEP Interpretation see below H 03/02/22 04:27 Phospholipids 178 mg/dL (151-264) 02/28/22 11:54 TSH 1.170 mlU/mL (0.270-4.200) 02/28/22 14:53 Free T4 1.32 ng/dL (0.76-1.46) 02/28/22 14:53 Urine Color Straw (Yellow) 02/28/22 Unknown Urine Turbidity Slightly cloudy (Clear) 02/28/22 Unknown Specific Mart (Man) 1.010 (1.003-1.030) 02/28/22 Unknown Ur Protein (Man) 2+ mg/dL (Negative) 02/28/22 Unknown Ur Ketones (Man) 5 (Negative) 02/28/22 Unknown Urine Bilirubin (Man) Negative (Negative) 02/28/22 Unknown Urine WBC (Auto) 9.0 /HPF (0.0-6.0) H 02/28/22 Unknown Urine RBC (Auto) 2.0 /HPF (0.0-6.0) 02/28/22 Unknown U Epithel Cells (Auto) 12.0 /HPF (0-13.0) 02/28/22 Unknown Urine Bacteria (Auto) 1+ /HPF (Negative) 02/28/22 Unknown Urine RBC (Manual) 3+ (Negative) 02/28/22 Unknown Urine Mucus Few /HPF 02/28/22 Unknown Urine Eosinophils Rare (None Seen) 03/01/22 15:45 Urine Creatinine 185.1 mg/dL (0.1-20.0) H 03/01/22 15:45 Urine Creatinine 187.2 mg/dL (0.1-20.0) H 03/01/22 15:45 Protein/Creatinin Ratio 3.13 03/01/22 15:45 Urine Sodium 68 mmol/L 03/01/22 15:45 Urine Urea Nitrogen 179 03/01/22 15:45 Urine Total Protein 580 mg/dL (5-11.8) H 03/01/22 15:45 Random Vancomycin 17.3 ug/mL (0-40.0) 03/02/22 04:27 Complement C3 129 mg/dL (82-185) 03/02/22 04:27 Complement C4 43 mg/dL (15-53) 03/02/22 04:27 Hepatitis A IgM Ab Non-reactive (NonReactive) 03/02/22 04:27 Hep Bs Antigen Non-reactive (Negative) 03/02/22 04:27 Hep B Core IgM Ab Non-reactive (NonReactive) 03/02/22 04:27 Hepatitis C Antibody Non-reactive (NonReactive) 03/02/22 04:27 Miscellaneous Test Flexitest 1 H 03/02/22 04:27 Microbiology: Microbiology 02/28/22 11:54 Peripheral/Venous Blood Culture - Final NO GROWTH AFTER 5 DAYS 02/28/22 11:54 Peripheral/Venous Blood Culture - Final NO GROWTH AFTER 5 DAYS Mejias/IV: Voiding Method Incontinent Active Medications - Current Medications Current Medications: Generic Name Dose Route Start Last Admin Trade Name Freq PRN Reason Stop Dose Admin Acetaminophen 650 mg 02/28/22 21:22 03/04/22 09:28 Acetaminophen 325 Mg Tab PO 650 mg Q4H PRN Administration Pain MILD(1-3)/Fever >100.5/SHIN Amlodipine Besylate 10 mg 03/05/22 10:00 03/05/22 09:28 Amlodipine 10 Mg Tab PO 10 mg QDAY JOB Administration Aspirin 81 mg 03/02/22 10:00 03/05/22 09:28 Aspirin 81 Mg Tab Chew PO 81 mg QDAY JOB Administration Atorvastatin Calcium 40 mg 03/02/22 10:00 03/05/22 09:28 Atorvastatin 40 Mg Tab PO 40 mg QDAY JOB Administration Dextrose 50 ml 03/01/22 17:32 Dextrose 50% In Water (25gm) 50 Ml Syringe IV Q30MIN PRN Hypoglycemia Protocol Famotidine 20 mg 03/05/22 10:00 03/05/22 09:28 Famotidine 20 Mg Tab PO 20 mg QDAY JOB Administration Hydralazine HCl 10 mg 03/01/22 15:00 03/03/22 04:04 Hydralazine 20 Mg/1 Ml Inj IV 10 mg Q4HR PRN Administration Hypertension Hydralazine HCl 100 mg 03/05/22 08:00 03/05/22 21:09 Hydralazine 100 Mg Tab PO 100 mg TID JOB Administration Insulin Glargine 30 units 03/04/22 22:00 03/05/22 21:10 Insulin Glargine 100 Units/Ml SUB-Q 30 units QHS JOB Administration Insulin Human Regular 0 units 03/01/22 18:00 03/06/22 06:15 Insulin Regular, Human 100 Units/1 Ml SUB-Q 4 units Q6H JOB Administration Protocol Labetalol HCl 10 mg 03/05/22 07:11 Labetalol 20 Mg/4 Ml Inj IV Q4HR PRN Hypertension Lidocaine HCl 15 ml 03/04/22 14:00 03/05/22 21:09 Magic Mouthwash 30ml PO 15 ml TID JOB Administration Metoclopramide HCl 5 mg 02/28/22 21:22 Metoclopramide 10 Mg/2 Ml Inj IV Q6H PRN Nausea And Vomiting Mirtazapine 15 mg 03/05/22 22:00 03/05/22 21:09 Mirtazapine 15 Mg Tab PO 15 mg QHS JOB Administration Ondansetron HCl 4 mg 02/28/22 21:22 03/04/22 08:17 Ondansetron 4 Mg/2 Ml Inj IV 4 mg Q3H PRN Administration Nausea And Vomiting Oxycodone/Acetaminophen 1 tab 02/28/22 21:22 Oxycodone /Acetaminophen 5-325mg Tab PO Q6H PRN Pain, Moderate (4-6) Sodium Chloride 10 ml 02/28/22 17:08 Sodium Chloride 0.9% 10 Ml Flush Syringe IV PRN PRN LINE FLUSH Sodium Chloride 10 ml 02/28/22 22:00 03/05/22 21:10 Sodium Chloride 0.9% 10 Ml Flush Syringe IV 10 ml BID JOB Administration Trazodone HCl 300 mg 03/05/22 22:00 03/05/22 21:09 Trazodone 100 Mg Tab PO 300 mg QHS JOB Administration Nutrition/Malnutrition Assess - Dietary Evaluation Nutrition/Malnutrition Findings: Nutrition Notes Start: 03/01/22 15:08 Freq: Status: Active Protocol: Document 03/03/22 15:03 JANICE (Rec: 03/03/22 15:11 JANICE [id number]) Nutrition Notes Initial or Follow up Reassessment Current Diagnosis Acute Kidney Injury,Diabetes, Sepsis,Hypertension, Hyperlipidemia Other Pertinent Diagnosis Acute metabolic encephalopathy Current Diet TF (Nepro at 25ml/hr) + Pureed Labs/Tests BUN 50 Cr 5 BG 396 Pertinent Medications Reviewed Height 4 ft 11 in Weight 72.1 kg [place] Body Weight (kg) 45.45 BMI 32.1 Weight change and time frame AdjBW for bilat BKA: 81.746kg Adj BMI: 36.3 Weight Status Obese Subjective/Other Information Per BREAKER UP evaluation yesterday, pt ok for pureed diet with nectar-thick liquids. Burn Absent Trauma Absent #1 Nutrition Diagnosis Swallowing difficulty As Evidenced by Signs and Symptoms BREAKER UP recommended pureed diet Diagnosis Progress(for reassessment Resolved documentation) Is patient on ventilator? No Is Patient Ambulatory and/or Out of Bed No REE-([facility]-confined to bed) 1622.328 Kcal/Kg value to use for calculation 16 Approximate Energy Requirements Using 1154 kcal/Kg Calculation Used for Recommendations Kcal/kg Additional Notes Pro needs >1.2g/kg adjBW: >71g /day Fluid needs 1-1.5L/day Nutrition Intervention Change Diet Order: Continue pureed diet as tolerated Nutrition Support: Continue TF as needed Goal #1 PO tolerance Goal #2 PO intake to meet at least 75% energy and pro needs Goal #3 TF tolerance Follow-Up By: 03/06/22 Additional Comments F/U: PO intake, TF tolerance
[2022-03-06] MEDS: MAGIC MOUTHWASH 30ML PO SCH ×3 (08:31→20:55)
[2022-03-06] MEDS: hydrALAZINE 100 MG TAB PO SCH ×3 (09:40→20:57)
--- NOTE | 2022-03-06 09:58 | Progress Note ---
Assessment and Plan Assessment: Acute Renal Failure likely secondary to Prerenal etiology vs ATN secondary to Hypotension, Sepsis, Rhabdo and Dehydration in the setting of Metformin and ARB, may also have underlying CKD from DM and Hypertension Altered Mental Status DKA Diabetes Mellitus Hypertension Hypernatremia, Resolved Leukocytosis/Sepsis Rhabdomyolysis Hypokalemia Plan: No new renal labs noted for today at present. Serum creatinine was 3.9 yesterday and prior was 4.2, No UOP recorded Initiated on hemodialysis on 03/02/22 via vasc cath S/P hemodialysis on Sunday. No acute indication for HD today, will likely need it tomorrow especially if not producing much urine, will reassess again in a.m. Renal ultrasound reviewed: Slightly atrophic left kidney. No hydronephrosis, mass or stones. Has significant proteinuria, likely from uncontrolled DM Ordered SPEP and serum free light chains, C3, C4, anti-GBM, KORTNEY, ANCA So far Hep panel-negative, SPEP showed no M-Shad, C3 and C4 normal. Home Metformin and Valsartan not resumed in the setting of advanced renal failure CXR done on admisison was clear Rhabdo, resolving-S/P IVF Received IV potassium yesterday Avoid nephrotoxic agents Renally dose medications Obtain daily weights Strict I/O's daily Assess dialysis needs daily Monitor for renal recovery If determined patient needs hemodialysis upon discharge then will need case management involvement for outpatient HD placement Plan of care reviewed by Dr. Parry Subjective Date of service: 03/06/22 Principal diagnosis: ARF Interval history: Patient seen lying in bed. More awake and alert. States dialysis makes him nauseated when he had it. Spoke to nurse to accurately monitor urine output. Objective - Vital Signs Vital signs: Vital Signs - 12hr 03/05/22 03/05/22 03/05/22 22:00 22:10 23:21 Temperature 98.4 F Pulse Rate 116 H 114 H 109 H Pulse Rate [ From Monitor] Respiratory 29 H 31 H 20 Rate Blood Pressure 173/74 173/74 141/61 O2 Sat by Pulse 95 95 95 Oximetry 03/06/22 03/06/22 03/06/22 00:00 04:00 04:17 Temperature 98.7 F Pulse Rate 103 H 95 H Pulse Rate [ 102 H From Monitor] Respiratory 22 16 Rate Blood Pressure 153/74 O2 Sat by Pulse 95 95 94 Oximetry - General Appearance General appearance: well-developed, appears stated age EENT: ATNC Neck: no JVD, supple Respiratory: Present: Decreased Breath Sounds Cardiology: S1S2 Gastrointestinal: normoactive bowel sounds Integumentary: warm and dry Neurologic: other (Awake and alert) Musculoskeletal: other (bilateral amputee) - Lab 03/06/22 10:57 03/06/22 10:57 Most recent lab results ABG pH 7.211 pH Units (7.350-7.450) L 02/28/22 12:18 ABG pCO2 30.8 mm Hg 02/28/22 12:18 ABG pO2 267.8 mm Hg (80.0-90.0) H 02/28/22 12:18 ABG HCO3 12.1 mmol/L (20.0-26.0) L 02/28/22 12:18 ABG O2 Saturation 99.4 % (95.0-99.0) H 02/28/22 12:18 Calcium 7.0 mg/dL (8.4-10.2) L 03/05/22 05:30 Phosphorus 2.00 mg/dL (2.5-4.5) L 03/05/22 05:30 Magnesium 1.60 mg/dL (1.7-2.3) L 03/05/22 05:30 Urine Creatinine 185.1 mg/dL (0.1-20.0) H 03/01/22 15:45 Urine Creatinine 187.2 mg/dL (0.1-20.0) H 03/01/22 15:45 Urine Sodium 68 mmol/L 03/01/22 15:45 Urine Total Protein 580 mg/dL (5-11.8) H 03/01/22 15:45 Medications & Allergies - Medications Allergies/Adverse Reactions: Allergies No Known Allergies Allergy (Verified 02/28/22 11:01) Home Medications: Home Medications Medication Instructions Recorded Confirmed Last Taken Type Aspirin [Aspirin BABY CHEW TAB] 81 mg PO QDAY 10/06/19 02/28/22 Unknown History Atorvastatin [Lipitor] 40 mg PO QDAY 10/06/19 02/28/22 Unknown History Valsartan [Diovan] 160 mg PO DAILY #30 tablet 10/08/19 02/28/22 Unknown Rx metFORMIN [Glucophage] 850 mg PO BIDDIAB #60 tablet 10/09/19 02/28/22 Unknown Rx Insulin NPH Hum/Reg Insulin Hm 28 units SQ ACHS 02/28/22 02/28/22 Unknown History Insulin NPH/Regular [NovoLIN 70/30] 25 unit SUB-Q QHS 02/28/22 02/28/22 Unknown History Losartan [Cozaar] 100 mg PO QDAY 02/28/22 02/28/22 Unknown History Mirtazapine [Remeron] 15 mg PO DAILY 02/28/22 02/28/22 Unknown History Trazodone HCl [traZODone] 300 mg PO QHS 02/28/22 02/28/22 Unknown History amLODIPine [Norvasc] 2.5 mg PO DAILY 02/28/22 02/28/22 Unknown History busPIRone [Buspar] 10 mg PO DAILY 02/28/22 02/28/22 Unknown History Active Medications: Generic Name Dose Route Start Last Admin Trade Name Freq PRN Reason Stop Dose Admin Acetaminophen 650 mg 02/28/22 21:22 03/04/22 09:28 Acetaminophen 325 Mg Tab PO 650 mg Q4H PRN Administration Pain MILD(1-3)/Fever >100.5/SHIN Amlodipine Besylate 10 mg 03/05/22 10:00 03/05/22 09:28 Amlodipine 10 Mg Tab PO 10 mg QDAY JOB Administration Aspirin 81 mg 03/02/22 10:00 03/05/22 09:28 Aspirin 81 Mg Tab Chew PO 81 mg QDAY JOB Administration Atorvastatin Calcium 40 mg 03/02/22 10:00 03/05/22 09:28 Atorvastatin 40 Mg Tab PO 40 mg QDAY JOB Administration Dextrose 50 ml 03/01/22 17:32 Dextrose 50% In Water (25gm) 50 Ml Syringe IV Q30MIN PRN Hypoglycemia Protocol Famotidine 20 mg 03/05/22 10:00 03/05/22 09:28 Famotidine 20 Mg Tab PO 20 mg QDAY JOB Administration Hydralazine HCl 10 mg 03/01/22 15:00 03/03/22 04:04 Hydralazine 20 Mg/1 Ml Inj IV 10 mg Q4HR PRN Administration Hypertension Hydralazine HCl 100 mg 03/05/22 08:00 03/05/22 21:09 Hydralazine 100 Mg Tab PO 100 mg TID JOB Administration Insulin Glargine 30 units 03/04/22 22:00 03/05/22 21:10 Insulin Glargine 100 Units/Ml SUB-Q 30 units QHS JOB Administration Insulin Human Regular 0 units 03/01/22 18:00 03/06/22 06:15 Insulin Regular, Human 100 Units/1 Ml SUB-Q 4 units Q6H JOB Administration Protocol Labetalol HCl 10 mg 03/05/22 07:11 Labetalol 20 Mg/4 Ml Inj IV Q4HR PRN Hypertension Lidocaine HCl 15 ml 03/04/22 14:00 03/05/22 21:09 Magic Mouthwash 30ml PO 15 ml TID JOB Administration Metoclopramide HCl 5 mg 02/28/22 21:22 Metoclopramide 10 Mg/2 Ml Inj IV Q6H PRN Nausea And Vomiting Mirtazapine 15 mg 03/05/22 22:00 03/05/22 21:09 Mirtazapine 15 Mg Tab PO 15 mg QHS JOB Administration Ondansetron HCl 4 mg 02/28/22 21:22 03/04/22 08:17 Ondansetron 4 Mg/2 Ml Inj IV 4 mg Q3H PRN Administration Nausea And Vomiting Oxycodone/Acetaminophen 1 tab 02/28/22 21:22 Oxycodone /Acetaminophen 5-325mg Tab PO Q6H PRN Pain, Moderate (4-6) Sodium Chloride 10 ml 02/28/22 17:08 Sodium Chloride 0.9% 10 Ml Flush Syringe IV PRN PRN LINE FLUSH Sodium Chloride 10 ml 02/28/22 22:00 03/05/22 21:10 Sodium Chloride 0.9% 10 Ml Flush Syringe IV 10 ml BID JOB Administration Trazodone HCl 300 mg 03/05/22 22:00 03/05/22 21:09 Trazodone 100 Mg Tab PO 300 mg QHS JOB Administration
[2022-03-06] MEDS ORDERED: POTASSIUM CHLORIDE 10 MEQ 10 MEQ/100 ML BAG IV SCH (11:00)
[2022-03-06] MEDS: amLODIPine 10 MG TAB PO SCH (11:09)
[2022-03-06] MEDS: ASPIRIN 81 MG TAB CHEW PO SCH (11:09)
[2022-03-06] MEDS: FAMOTIDINE 20 MG TAB PO SCH (11:09)
[2022-03-06 11:16] LABS: Hematocrit 29.1 % (35.5-45.6); Hemoglobin 9.6 gm/dl (11.8-15.2); Mean Corpuscular HGB Conc 33 % (32-34); Mean Corpuscular Volume 81 fl (84-94); Platelet Count 128 K/mm3 (140-440); Red Cell Distribution Width 16.5 % (13.2-15.2)
[2022-03-06 11:33] LABS: Calcium 6.5 mg/dL (8.4-10.2)
[2022-03-06] MEDS: traZODone 100 MG TAB PO SCH (22:57)
[2022-03-06] MEDS: INSULIN GLARGINE 100 UNITS/ML SUB-Q SCH (22:58)
[2022-03-06] MEDS: MIRTAZAPINE 15 MG TAB PO SCH (22:58)
[2022-03-07] MEDS: INSULIN REGULAR, HUMAN 100 UNITS/1 ML SUB-Q SCH ×6 (00:07→22:25)
[2022-03-07 07:33] LABS: Hematocrit 28.5 % (35.5-45.6); Hemoglobin 9.3 gm/dl (11.8-15.2); Mean Corpuscular HGB Conc 33 % (32-34); Mean Corpuscular Volume 82 fl (84-94); Platelet Count 200 K/mm3 (140-440); Red Blood Count 3.49 M/mm3 (3.65-5.03); Red Cell Distribution Width 16.4 % (13.2-15.2)
[2022-03-07 07:53] LABS: Calcium 6.6 mg/dL (8.4-10.2)
[2022-03-07 08:31] LABS: Band Neutrophils # (Manual) 0.1 K/mm3; Basophils % (Manual) 0 % (0.0-1.8); Eosinophils % (Manual) 0 % (0.0-4.3); Total Cells Counted 100
[2022-03-07 08:37] LABS: Anisocytosis 1+
[2022-03-07 08:38] LABS: Hypochromasia 1+; Large Platelets Few; Platelet Clumps Rare; Platelet Estimate Cons
[2022-03-07] MEDS ORDERED: SODIUM CHLORIDE 0.9% 100 ML IV PRN (08:42)
--- NOTE | 2022-03-07 09:08 | Progress Note ---
Assessment and Plan Acute Renal Failure likely secondary to Prerenal etiology vs ATN secondary to Hypotension, Sepsis, Rhabdo and Dehydration in the setting of Metformin and ARB, may also have underlying CKD from DM and Hypertension Altered Mental Status DKA Diabetes Mellitus Hypertension Hypernatremia, Resolved Leukocytosis/Sepsis Rhabdomyolysis Hypokalemia Plan: HD today for clearance and volume removal permcath requested, vascular consult was placed S/P hemodialysis on Sunday. No acute indication for HD today, will likely need it tomorrow especially if not producing much urine, will reassess again in a.m. Renal ultrasound reviewed: Slightly atrophic left kidney. No hydronephrosis, mass or stones. Has significant proteinuria, likely from uncontrolled DM Ordered SPEP and serum free light chains, C3, C4, anti-GBM, KORTNEY, ANCA So far Hep panel-negative, SPEP showed no M-Shad, C3 and C4 normal. Home Metformin and Valsartan not resumed in the setting of advanced renal failure CXR done on admisison was clear Avoid nephrotoxic agents Renally dose medications Obtain daily weights Strict I/O's daily Assess dialysis needs daily Monitor for renal recovery patient will need outpatient HD placement Subjective Date of service: 03/07/22 Principal diagnosis: ARF Interval history: remains to have minimal UOP Objective - Vital Signs Vital signs: Vital Signs - 12hr 03/07/22 03/07/22 03/07/22 04:47 06:01 08:19 Temperature 98.7 F Pulse Rate 98 H Respiratory 22 Rate Blood Pressure 153/75 [Left] O2 Sat by Pulse 96 96 96 Oximetry - Lab 03/07/22 07:10 03/07/22 07:10 Most recent lab results ABG pH 7.211 pH Units (7.350-7.450) L 02/28/22 12:18 ABG pCO2 30.8 mm Hg 02/28/22 12:18 ABG pO2 267.8 mm Hg (80.0-90.0) H 02/28/22 12:18 ABG HCO3 12.1 mmol/L (20.0-26.0) L 02/28/22 12:18 ABG O2 Saturation 99.4 % (95.0-99.0) H 02/28/22 12:18 Calcium 6.6 mg/dL (8.4-10.2) L 03/07/22 07:10 Phosphorus 4.60 mg/dL (2.5-4.5) H D 03/06/22 10:57 Magnesium 2.80 mg/dL (1.7-2.3) H 03/06/22 10:57 Urine Creatinine 185.1 mg/dL (0.1-20.0) H 03/01/22 15:45 Urine Creatinine 187.2 mg/dL (0.1-20.0) H 03/01/22 15:45 Urine Sodium 68 mmol/L 03/01/22 15:45 Urine Total Protein 580 mg/dL (5-11.8) H 03/01/22 15:45 Medications & Allergies - Medications Allergies/Adverse Reactions: Allergies No Known Allergies Allergy (Verified 02/28/22 11:01) Home Medications: Home Medications Medication Instructions Recorded Confirmed Last Taken Type Aspirin [Aspirin BABY CHEW TAB] 81 mg PO QDAY 10/06/19 02/28/22 Unknown History Atorvastatin [Lipitor] 40 mg PO QDAY 10/06/19 02/28/22 Unknown History Valsartan [Diovan] 160 mg PO DAILY #30 tablet 10/08/19 02/28/22 Unknown Rx metFORMIN [Glucophage] 850 mg PO BIDDIAB #60 tablet 10/09/19 02/28/22 Unknown Rx Insulin NPH Hum/Reg Insulin Hm 28 units SQ ACHS 02/28/22 02/28/22 Unknown History Insulin NPH/Regular [NovoLIN 70/30] 25 unit SUB-Q QHS 02/28/22 02/28/22 Unknown History Losartan [Cozaar] 100 mg PO QDAY 02/28/22 02/28/22 Unknown History Mirtazapine [Remeron] 15 mg PO DAILY 02/28/22 02/28/22 Unknown History Trazodone HCl [traZODone] 300 mg PO QHS 02/28/22 02/28/22 Unknown History amLODIPine [Norvasc] 2.5 mg PO DAILY 02/28/22 02/28/22 Unknown History busPIRone [Buspar] 10 mg PO DAILY 02/28/22 02/28/22 Unknown History Active Medications: Generic Name Dose Route Start Last Admin Trade Name Freq PRN Reason Stop Dose Admin Acetaminophen 650 mg 02/28/22 21:22 03/04/22 09:28 Acetaminophen 325 Mg Tab PO 650 mg Q4H PRN Administration Pain MILD(1-3)/Fever >100.5/SHIN Amlodipine Besylate 10 mg 03/05/22 10:00 03/06/22 11:09 Amlodipine 10 Mg Tab PO 10 mg QDAY JOB Administration Aspirin 81 mg 03/02/22 10:00 03/06/22 11:09 Aspirin 81 Mg Tab Chew PO 81 mg QDAY JOB Administration Atorvastatin Calcium 40 mg 03/02/22 10:00 03/06/22 11:09 Atorvastatin 40 Mg Tab PO 40 mg QDAY JOB Administration Dextrose 50 ml 03/01/22 17:32 Dextrose 50% In Water (25gm) 50 Ml Syringe IV Q30MIN PRN Hypoglycemia Protocol Famotidine 20 mg 03/05/22 10:00 03/06/22 11:09 Famotidine 20 Mg Tab PO 20 mg QDAY JOB Administration Hydralazine HCl 10 mg 03/01/22 15:00 03/03/22 04:04 Hydralazine 20 Mg/1 Ml Inj IV 10 mg Q4HR PRN Administration Hypertension Hydralazine HCl 100 mg 03/05/22 08:00 03/06/22 20:57 Hydralazine 100 Mg Tab PO 100 mg TID JOB Administration Sodium Chloride 100 mls @ 999 mls/hr 03/07/22 08:42 Nacl 0.9% IV [place] PRN Hypotension Insulin Glargine 30 units 03/04/22 22:00 03/06/22 22:58 Insulin Glargine 100 Units/Ml SUB-Q 30 units QHS JOB Administration Insulin Human Regular 0 units 03/07/22 09:00 Insulin Regular, Human 100 Units/1 Ml SUB-Q ACHS [facility] Protocol Labetalol HCl 10 mg 03/05/22 07:11 Labetalol 20 Mg/4 Ml Inj IV Q4HR PRN Hypertension Lidocaine HCl 15 ml 03/04/22 14:00 03/06/22 20:55 Magic Mouthwash 30ml PO Not Given TID JOB Metoclopramide HCl 5 mg 02/28/22 21:22 Metoclopramide 10 Mg/2 Ml Inj IV Q6H PRN Nausea And Vomiting Mirtazapine 15 mg 03/05/22 22:00 03/06/22 22:58 Mirtazapine 15 Mg Tab PO 15 mg QHS JOB Administration Ondansetron HCl 4 mg 02/28/22 21:22 03/04/22 08:17 Ondansetron 4 Mg/2 Ml Inj IV 4 mg Q3H PRN Administration Nausea And Vomiting Oxycodone/Acetaminophen 1 tab 02/28/22 21:22 Oxycodone /Acetaminophen 5-325mg Tab PO Q6H PRN Pain, Moderate (4-6) Sodium Chloride 10 ml 02/28/22 17:08 Sodium Chloride 0.9% 10 Ml Flush Syringe IV PRN PRN LINE FLUSH Sodium Chloride 10 ml 02/28/22 22:00 03/06/22 21:03 Sodium Chloride 0.9% 10 Ml Flush Syringe IV 10 ml BID JOB Administration Trazodone HCl 300 mg 03/05/22 22:00 03/06/22 22:57 Trazodone 100 Mg Tab PO 300 mg QHS JOB Administration
[2022-03-07] MEDS: hydrALAZINE 100 MG TAB PO SCH ×3 (09:10→20:55)
[2022-03-07] MEDS: FAMOTIDINE 20 MG TAB PO SCH (09:24)
[2022-03-07] MEDS: ASPIRIN 81 MG TAB CHEW PO SCH (09:24)
[2022-03-07] MEDS: MAGIC MOUTHWASH 30ML PO SCH ×3 (09:26→20:55)
--- NOTE | 2022-03-07 14:30 | Progress Note ---
Assessment and Plan This is a 61-year-old male with diabetes, hypertension, hyperlipidemia, s/p bilateral traumatic amputation of lower extremities, and has slurred speech at baseline who presents to the emergency department on 02/28 via EMS for altered mental status. On arrival to the emergency department blood pressure was noted to be 80/60 with oxygen saturations of 74% on room air consistent with acute hypoxic respiratory failure. Lab work was consistent with DKA, hypernatremia, leukocytosis, acute kidney injury, sepsis, rhabdomyolysis. Patient was admitted to the hospital service with consults to [facility] and nephrology. Hospital course to date: 03/01: Patient failed bedside swallow evaluation and will be kept NPO. NG tube to be placed by RN with consult to nutrition for tube feeding. Formalized evaluation pending. Patient's anion gap noted to be closed. Due to n.p.o. status, hypernatremia and need for insulin and rhabdo, MIVF changed to 1/2 NS. Patient was also given LR bolus today. 03/02: Patient remains confused, hypernatremia and rhabdomyolysis is improved however renal function has worsened. Patient was given IV insulin for hyperglycemia and will increase Lantus. RN to start TF when able. Patient will be transferred to IMCU. Hydralazine IV as needed, hydralazine p.o. and increase in amlodipine for hypertension. Bilateral respirations events overnight as patient removed NG tube which was replaced. Patient will be on half-normal saline at 125 for rhabdomyolysis. Nephrology plans to initiate hemodialysis. 03/03: CK continues to decrease, CR decreased to 3.8 but increased to 5. Tolerated HD yesterday. Patient seems to be more alert today. Remains in IMCU. Tube feedings resumed. Increasing Lantus. Increase in hydralazine and amlodipine. Possible transfer to floor tomorrow. 03/04: Patient seems more awake and alert today, patient had large volume emesis and RN instructed to leave tube feeding off and give p.o. as tolerated. Does have as needed Reglan. Patient noted to have a bloody nose and his platelets are downtrending at 75 today. We will continue to monitor. On chart review it does not seem that he had heparin exposure during stay therefore HIT was not sent. We will continue to monitor. Possible transfer to the floor today. Increase in hydral.. 03/05: Increase in antihypertensives due to hypertension, will discontinue IV fluids till tomorrow morning as CK has trended down significantly. We will repeat potassium and phosphorus with K-Phos. RN to remove NG tube as patient is more alert and taking p.o. intake. Will transfer to the floor. Thrombocytopenia persists 03/06: Awaiting completion of AM labs, specifically potassium and platelet count. If platelet count drops further, will order HIT panel and consult hematology. Can d/c NG tube as patient cleared by ST for diet. Patient presented from home, may need SNF vs C. Discussed with CM this AM. Assessment and plan: This is a 61-year-old male with DM, HTN, HLD admitted with sepsis, DKA, LATASHA, rhabdomyolysis Neuro: Acute metabolic encephalopathy (improved) - AOX3. unable to recite year for some reason, but able to recite name, location, circumstances of admission, president. -Reorientation as needed -Maintain sleep-wake cycle -As needed analgesia -CT head showed no acute intracranial process -CT C-spine showed no acute intracranial process, visualized paranasal sinuses and mastoid air cells clear -Continue home Remeron Cardiac: h/o hyperlipidemia, hypertension -Continue home amlodipine, Lipitor, hydralazine -Hold valsartan -Hydralazine as needed -Blood pressure monitoring per protocol Respiratory: Acute hypoxic respiratory failure (resolved) -Presented with hypoxia on nasal cannula, now on room air -Supplemental oxygen as needed -Pulmonary hygiene -SPO2 monitor per protocol -CXR showed no acute process GI: Moderate protein calorie malnutrition -Failed bedside swallow evaluation initially -ST evaluation cleared for pured diet -24 hours + 3845 mL -PPI -d/c NGT : Acute kidney injury likely secondary to vasomotor nephropathy may also have underlying CKD, rhabdomyolysis, hypokalemia, hypophosphatemia -Nephrology consulted, appreciate recommendations -HD per nephro -Monitor intake and output -Renally dose medications -Avoid nephrotoxic medications -FeNa 1.2 indicating intrinsic cause for renal failure -Renal ultrasound slightly atrophic left kidney, no hydronephrosis, masses or stones -We will hold DELFIN/ARB -MIVF -Trend BMP and CK ID: Sepsis (POA), resolved -Presented with lactic acidosis, leukocytosis, hypotension, pyuria on UA -Stopped abx (rocephin) -f/u blood culture, urine culture -UA with some pyuria -Monitor WBC and temperature curve Endo: DKA (resolved), h/o DM -Presented with venous pH 7.116, anion gap 35, blood glucose 1447 -s/p DKA protocol -S/p insulin drip -Transitioned to SSI and long-acting insulin -Accu-Cheks ACHS -Avoid hypoglycemia -Hemoglobin A1c 12.5 Heme: Leukocytosis (resolved), thrombocytopenia (worsening) -Trend CBC -Transfuse hemoglobin less than 7 -SCDs to BLE while in bed Subjective Date of service: 03/07/22 Principal diagnosis: ARF Objective - Constitutional Vitals: Vital Signs - 12hr 03/07/22 03/07/22 03/07/22 04:47 06:01 08:19 Temperature 98.7 F Pulse Rate 98 H Respiratory 22 Rate Blood Pressure Blood Pressure 153/75 [Left] O2 Sat by Pulse 96 96 96 Oximetry O2 Sat by Pulse Oximetry [ Bilateral] 03/07/22 03/07/22 03/07/22 10:50 11:00 11:15 Temperature Pulse Rate 87 84 88 Respiratory Rate Blood Pressure 145/75 142/73 135/73 Blood Pressure [Left] O2 Sat by Pulse Oximetry O2 Sat by Pulse Oximetry [ Bilateral] 03/07/22 03/07/22 03/07/22 11:30 11:45 12:00 Temperature Pulse Rate 88 92 H 90 Respiratory Rate Blood Pressure 142/72 138/72 139/76 Blood Pressure [Left] O2 Sat by Pulse Oximetry O2 Sat by Pulse Oximetry [ Bilateral] 03/07/22 03/07/22 03/07/22 12:03 12:15 12:30 Temperature 98.0 F Pulse Rate 85 89 90 Respiratory 20 Rate Blood Pressure 156/73 134/79 150/82 Blood Pressure [Left] O2 Sat by Pulse Oximetry O2 Sat by Pulse 100 Oximetry [ Bilateral] 03/07/22 03/07/22 03/07/22 12:45 13:00 13:15 Temperature Pulse Rate 90 92 H 91 H Respiratory Rate Blood Pressure 151/80 150/83 147/76 Blood Pressure [Left] O2 Sat by Pulse Oximetry O2 Sat by Pulse Oximetry [ Bilateral] 03/07/22 03/07/22 03/07/22 13:30 13:45 14:00 Temperature Pulse Rate 94 H 96 H 92 H Respiratory Rate Blood Pressure 151/77 135/81 147/76 Blood Pressure [Left] O2 Sat by Pulse Oximetry O2 Sat by Pulse Oximetry [ Bilateral] 03/07/22 14:10 Temperature Pulse Rate 93 H Respiratory Rate Blood Pressure 156/80 Blood Pressure [Left] O2 Sat by Pulse Oximetry O2 Sat by Pulse Oximetry [ Bilateral] - Labs CBC & Chem 7: 03/07/22 07:10 03/07/22 07:10 Labs: Abnormal lab results 03/06/22 03/06/22 03/06/22 Range/Units 06:10 11:57 16:17 RBC (3.65-5.03) M/mm3 Hgb (11.8-15.2) gm/dl Hct (35.5-45.6) % MCV (84-94) fl MCH (28-32) pg RDW (13.2-15.2) % Seg Neuts % (Manual) (40.0-70.0) % Lymphocytes % (Manual) (13.4-35.0) % Lymphocytes # (Manual) (1.2-5.4) K/mm3 Sodium (137-145) mmol/L Potassium (3.6-5.0) mmol/L Chloride (98-107) mmol/L BUN (9-20) mg/dL Creatinine (0.8-1.3) mg/dL Glucose (75-100) mg/dL POC Glucose 241 H 193 H 232 H (70-105) mg/dL Calcium (8.4-10.2) mg/dL 03/06/22 03/07/22 03/07/22 Range/Units 22:23 07:10 07:10 RBC 3.49 L (3.65-5.03) M/mm3 Hgb 9.3 L (11.8-15.2) gm/dl Hct 28.5 L (35.5-45.6) % MCV 82 L (84-94) fl MCH 27 L (28-32) pg RDW 16.4 H (13.2-15.2) % Seg Neuts % (Manual) 86.0 H (40.0-70.0) % Lymphocytes % (Manual) 6.0 L (13.4-35.0) % Lymphocytes # (Manual) 0.4 L (1.2-5.4) K/mm3 Sodium 133 L (137-145) mmol/L Potassium 3.0 L (3.6-5.0) mmol/L Chloride 97.5 L (98-107) mmol/L BUN 46 H (9-20) mg/dL Creatinine 7.5 H (0.8-1.3) mg/dL Glucose 72 L (75-100) mg/dL POC Glucose 177 H (70-105) mg/dL Calcium 6.6 L (8.4-10.2) mg/dL HEART Score - HEART Score Troponin: Troponin T 0.014 ng/mL (0.00-0.029) 02/28/22 15:27
[2022-03-07] MEDS: amLODIPine 10 MG TAB PO SCH (15:48)
[2022-03-07] MEDS: MIRTAZAPINE 15 MG TAB PO SCH (21:16)
[2022-03-07] MEDS: traZODone 100 MG TAB PO SCH (21:17)
[2022-03-07] MEDS: INSULIN GLARGINE 100 UNITS/ML SUB-Q SCH (22:26)
[2022-03-07 23:14] LABS: ANA Screen, IFA Negative (Negative)
[2022-03-08 00:04] LABS: Myeloperoxidase Antibody <1.0 AI (<1.0)
[2022-03-08] MEDS ORDERED: HEPARIN/NS 5000 UNIT/500ML 500 ML IR ONE (08:06)
[2022-03-08] MEDS ORDERED: fentaNYL 250 MCG/5 ML INJ ONE (08:07)
[2022-03-08] MEDS: fentaNYL 100 MCG/2 ML INJ ONE ×2 (08:07→08:27)
[2022-03-08] MEDS ORDERED: HEPARIN 10,000 UNIT/1 ML VIAL ONE (08:24)
[2022-03-08] MEDS: HEPARIN 10,000 UNIT/1 ML VIAL ONE ×2 (08:26→09:39)
[2022-03-08] MEDS: MIDAZOLAM 2 MG/2 ML INJ ONE (08:27)
[2022-03-08] MEDS: LIDOCAINE (2%) 20 MG/1 ML VIAL 20 ML MDV INFILTRATI ONE ×2 (08:27→09:35)
[2022-03-08] MEDS: INSULIN REGULAR, HUMAN 100 UNITS/1 ML SUB-Q SCH ×4 (08:29→21:55)
[2022-03-08] MEDS: MAGIC MOUTHWASH 30ML PO SCH ×3 (08:29→22:03)
--- NOTE | 2022-03-08 09:55 | Operative Report ---
Operative Report Operative Report: Date of Procedure: 03/08/2022 Pre-operative Diagnosis: End-Stage Renal Disease Post-operative Diagnosis: Same Procedure(s): 1. Exchange of Right Internal Jugular Permacath to 23 cm Glidepath Permacath Over Wire 2. Radiologic Supervision with Interpretation Surgeon: Iggy Bhandari M.D. Narrow Gauge Brakeman: None Anesthesia: 2% Lidocaine EBL: Minimal Counts: Correct Complications: None Condition: Stable Findings: Permacath was placed with the distal tip in the right atrium. Specimen: Indwelling Vas-Cath was discarded Indication: The patient is a 61-year-old male who presented with renal failure requiring urgent dialysis and placement of a Vas-Cath. He requires a long-term catheter for discharge. He was given the risk, benefits, and alternative procedures and consented to the procedure. Description of Procedure: The patient was brought to the Linking Machine Operator and laid in supine position. After timeout was performed his right neck and chest were prepped and draped in normal sterile fashion. A 0.035 J-wire was advanced through the Vas-Cath and into the inferior vena cava to anchor the wire. The entry site on the neck was then anesthetized with lidocaine as well as the presumed tract and the anticipated exit site on the chest. An 11 blade was used to make a small stab incision on the chest and a 23 cm Glidepath Permacath was connected to a tunneler and tunneled from the exit site on chest to the entry site on the neck. The Vas- Cath was removed leaving the wire in place and the peel-away SafeSheath was then inserted into the internal jugular vein by Seldinger technique. The dilator and wire were removed and the permacath was inserted into the SafeSheath after removing the tunnel. The SafeSheath was then peeled away and the permacath was positioned with the distal tip in the right atrium. Both ports easily aspirated and flushed and then were primed with appropriate amount heparin. The neck incision was then closed with a 4-0 Monocryl in interrupted subcuticular fashion and then dressed with Dermabond. The permacath was secured in position with a 2-0 Ethilon and then dressed with a sterile dressing. The patient tolerated the procedure well. All counts were correct. Final fluoroscopy demonstrated the catheter was in adequate position with the distal tip in the right atrium and no evidence of pneumothorax.
[2022-03-08] MEDS: amLODIPine 10 MG TAB PO SCH (10:30)
[2022-03-08] MEDS: hydrALAZINE 100 MG TAB PO SCH ×3 (10:30→22:02)
[2022-03-08] MEDS: ASPIRIN 81 MG TAB CHEW PO SCH (10:30)
[2022-03-08] MEDS: FAMOTIDINE 20 MG TAB PO SCH (10:30)
[2022-03-08] MEDS: LOSARTAN 50 MG TAB PO SCH (11:39)
--- NOTE | 2022-03-08 12:24 | Progress Note ---
Assessment and Plan Assessment: Acute Renal Failure likely secondary to Prerenal etiology vs ATN secondary to Hypotension, Sepsis, Rhabdo and Dehydration in the setting of Metformin and ARB, may also have underlying CKD from DM and Hypertension Altered Mental Status DKA Diabetes Mellitus Hypertension Hypernatremia, Resolved Leukocytosis/Sepsis Rhabdomyolysis Hypokalemia Plan: No new renal labs today. Serum creatinine was 7.5 yesterday S/P perm-catheter placement today S/P hemodialysis yesterday, will place on ,, schedule for now Renally dose medications Obtain daily weights Strict I/O's daily Assess dialysis needs daily Consulted case management for outpatient HD placement to [facility], patient has been accepted at [facility] on ,,S schedule with a chair time of 9:45 a.m when ready for discharge Plan of care reviewed by Dr. Parry Subjective Date of service: 03/08/22 Principal diagnosis: ARF Interval history: Patient seen lying in bed. No family at bedside. Objective - Vital Signs Vital signs: Vital Signs - 12hr 03/08/22 03/08/22 03/08/22 06:10 07:40 11:23 Temperature 98.8 F 97.9 F Pulse Rate 91 H Respiratory 20 20 Rate Blood Pressure 170/75 161/73 O2 Sat by Pulse 96 96 Oximetry - General Appearance General appearance: well-developed, appears stated age EENT: ATNC, PERRL Neck: no JVD, supple Respiratory: Present: Decreased Breath Sounds Cardiology: S1S2 Gastrointestinal: normoactive bowel sounds Integumentary: warm and dry Neurologic: other (Resting in bed) Musculoskeletal: other (bilateral amputee) - Lab 03/07/22 07:10 03/07/22 07:10 Most recent lab results ABG pH 7.211 pH Units (7.350-7.450) L 02/28/22 12:18 ABG pCO2 30.8 mm Hg 02/28/22 12:18 ABG pO2 267.8 mm Hg (80.0-90.0) H 02/28/22 12:18 ABG HCO3 12.1 mmol/L (20.0-26.0) L 02/28/22 12:18 ABG O2 Saturation 99.4 % (95.0-99.0) H 02/28/22 12:18 Calcium 6.6 mg/dL (8.4-10.2) L 03/07/22 07:10 Phosphorus 4.60 mg/dL (2.5-4.5) H D 03/06/22 10:57 Magnesium 2.80 mg/dL (1.7-2.3) H 03/06/22 10:57 Urine Creatinine 185.1 mg/dL (0.1-20.0) H 03/01/22 15:45 Urine Creatinine 187.2 mg/dL (0.1-20.0) H 03/01/22 15:45 Urine Sodium 68 mmol/L 03/01/22 15:45 Urine Total Protein 580 mg/dL (5-11.8) H 03/01/22 15:45 Medications & Allergies - Medications Allergies/Adverse Reactions: Allergies No Known Allergies Allergy (Verified 02/28/22 11:01) Home Medications: Home Medications Medication Instructions Recorded Confirmed Last Taken Type Aspirin [Aspirin BABY CHEW TAB] 81 mg PO QDAY 10/06/19 02/28/22 Unknown History Atorvastatin [Lipitor] 40 mg PO QDAY 10/06/19 02/28/22 Unknown History Valsartan [Diovan] 160 mg PO DAILY #30 tablet 10/08/19 02/28/22 Unknown Rx metFORMIN [Glucophage] 850 mg PO BIDDIAB #60 tablet 10/09/19 02/28/22 Unknown Rx Insulin NPH Hum/Reg Insulin Hm 28 units SQ ACHS 02/28/22 02/28/22 Unknown History Insulin NPH/Regular [NovoLIN 70/30] 25 unit SUB-Q QHS 02/28/22 02/28/22 Unknown History Losartan [Cozaar] 100 mg PO QDAY 02/28/22 02/28/22 Unknown History Mirtazapine [Remeron] 15 mg PO DAILY 02/28/22 02/28/22 Unknown History Trazodone HCl [traZODone] 300 mg PO QHS 02/28/22 02/28/22 Unknown History amLODIPine [Norvasc] 2.5 mg PO DAILY 02/28/22 02/28/22 Unknown History busPIRone [Buspar] 10 mg PO DAILY 02/28/22 02/28/22 Unknown History Active Medications: Generic Name Dose Route Start Last Admin Trade Name Freq PRN Reason Stop Dose Admin Acetaminophen 650 mg 02/28/22 21:22 03/04/22 09:28 Acetaminophen 325 Mg Tab PO 650 mg Q4H PRN Administration Pain MILD(1-3)/Fever >100.5/SHIN Amlodipine Besylate 10 mg 03/05/22 10:00 03/08/22 10:30 Amlodipine 10 Mg Tab PO 10 mg QDAY JOB Administration Aspirin 81 mg 03/02/22 10:00 03/08/22 10:30 Aspirin 81 Mg Tab Chew PO 81 mg QDAY JOB Administration Atorvastatin Calcium 40 mg 03/02/22 10:00 03/08/22 10:30 Atorvastatin 40 Mg Tab PO 40 mg QDAY JOB Administration Dextrose 50 ml 03/01/22 17:32 Dextrose 50% In Water (25gm) 50 Ml Syringe IV Q30MIN PRN Hypoglycemia Protocol Famotidine 20 mg 03/05/22 10:00 03/08/22 10:30 Famotidine 20 Mg Tab PO 20 mg QDAY JOB Administration Hydralazine HCl 10 mg 03/01/22 15:00 03/03/22 04:04 Hydralazine 20 Mg/1 Ml Inj IV 10 mg Q4HR PRN Administration Hypertension Hydralazine HCl 100 mg 03/05/22 08:00 03/08/22 10:30 Hydralazine 100 Mg Tab PO 100 mg TID JOB Administration Sodium Chloride 100 mls @ 999 mls/hr 03/07/22 08:42 Nacl 0.9% IV [place] PRN Hypotension Insulin Glargine 30 units 03/04/22 22:00 03/07/22 22:26 Insulin Glargine 100 Units/Ml SUB-Q 30 units QHS JOB Administration Insulin Human Regular 0 units 03/07/22 09:00 03/08/22 08:29 Insulin Regular, Human 100 Units/1 Ml SUB-Q Not Given ACHS JOB Protocol Labetalol HCl 10 mg 03/05/22 07:11 Labetalol 20 Mg/4 Ml Inj IV Q4HR PRN Hypertension Lidocaine HCl 15 ml 03/04/22 14:00 03/08/22 08:29 Magic Mouthwash 30ml PO Not Given TID JOB Losartan Potassium 100 mg 03/08/22 10:00 03/08/22 11:39 Losartan 50 Mg Tab PO 100 mg QDAY JOB Administration Metoclopramide HCl 5 mg 02/28/22 21:22 Metoclopramide 10 Mg/2 Ml Inj IV Q6H PRN Nausea And Vomiting Mirtazapine 15 mg 03/05/22 22:00 03/07/22 21:16 Mirtazapine 15 Mg Tab PO 15 mg QHS JOB Administration Ondansetron HCl 4 mg 02/28/22 21:22 03/04/22 08:17 Ondansetron 4 Mg/2 Ml Inj IV 4 mg Q3H PRN Administration Nausea And Vomiting Oxycodone/Acetaminophen 1 tab 02/28/22 21:22 Oxycodone /Acetaminophen 5-325mg Tab PO Q6H PRN Pain, Moderate (4-6) Sodium Chloride 10 ml 02/28/22 17:08 Sodium Chloride 0.9% 10 Ml Flush Syringe IV PRN PRN LINE FLUSH Sodium Chloride 10 ml 02/28/22 22:00 03/08/22 10:30 Sodium Chloride 0.9% 10 Ml Flush Syringe IV 10 ml BID JOB Administration Trazodone HCl 300 mg 03/05/22 22:00 03/07/22 21:17 Trazodone 100 Mg Tab PO 300 mg QHS JOB Administration
--- NOTE | 2022-03-08 16:04 | Progress Note ---
Assessment and Plan This is a 61-year-old male with diabetes, hypertension, hyperlipidemia, s/p bilateral traumatic amputation of lower extremities, and has slurred speech at baseline who presents to the emergency department on 02/28 via EMS for altered mental status. On arrival to the emergency department blood pressure was noted to be 80/60 with oxygen saturations of 74% on room air consistent with acute hypoxic respiratory failure. Lab work was consistent with DKA, hypernatremia, leukocytosis, acute kidney injury, sepsis, rhabdomyolysis. Patient was admitted to the hospital service with consults to [facility] and nephrology. Hospital course to date: 03/01: Patient failed bedside swallow evaluation and will be kept NPO. NG tube to be placed by RN with consult to nutrition for tube feeding. Formalized evaluation pending. Patient's anion gap noted to be closed. Due to n.p.o. status, hypernatremia and need for insulin and rhabdo, MIVF changed to 1/2 NS. Patient was also given LR bolus today. 03/02: Patient remains confused, hypernatremia and rhabdomyolysis is improved however renal function has worsened. Patient was given IV insulin for hyperglycemia and will increase Lantus. RN to start TF when able. Patient will be transferred to IMCU. Hydralazine IV as needed, hydralazine p.o. and increase in amlodipine for hypertension. Bilateral respirations events overnight as patient removed NG tube which was replaced. Patient will be on half-normal saline at 125 for rhabdomyolysis. Nephrology plans to initiate hemodialysis. 03/03: CK continues to decrease, CR decreased to 3.8 but increased to 5. Tolerated HD yesterday. Patient seems to be more alert today. Remains in IMCU. Tube feedings resumed. Increasing Lantus. Increase in hydralazine and amlodipine. Possible transfer to floor tomorrow. 03/04: Patient seems more awake and alert today, patient had large volume emesis and RN instructed to leave tube feeding off and give p.o. as tolerated. Does have as needed Reglan. Patient noted to have a bloody nose and his platelets are downtrending at 75 today. We will continue to monitor. On chart review it does not seem that he had heparin exposure during stay therefore HIT was not sent. We will continue to monitor. Possible transfer to the floor today. Increase in hydral.. 03/05: Increase in antihypertensives due to hypertension, will discontinue IV fluids till tomorrow morning as CK has trended down significantly. We will repeat potassium and phosphorus with K-Phos. RN to remove NG tube as patient is more alert and taking p.o. intake. Will transfer to the floor. Thrombocytopenia persists 03/06: Awaiting completion of AM labs, specifically potassium and platelet count. If platelet count drops further, will order HIT panel and consult hematology. Can d/c NG tube as patient cleared by ST for diet. Patient presented from home, may need SNF vs C. Discussed with CM this AM. Assessment and plan: This is a 61-year-old male with DM, HTN, HLD admitted with sepsis, DKA, LATASHA, rhabdomyolysis Neuro: Acute metabolic encephalopathy (improved) - AOX3. unable to recite year for some reason, but able to recite name, location, circumstances of admission, president. -Reorientation as needed -Maintain sleep-wake cycle -As needed analgesia -CT head showed no acute intracranial process -CT C-spine showed no acute intracranial process, visualized paranasal sinuses and mastoid air cells clear -Continue home Remeron Cardiac: h/o hyperlipidemia, hypertension -Continue home amlodipine, Lipitor, hydralazine -Hold valsartan -Hydralazine as needed -Blood pressure monitoring per protocol Respiratory: Acute hypoxic respiratory failure (resolved) -Presented with hypoxia on nasal cannula, now on room air -Supplemental oxygen as needed -Pulmonary hygiene -SPO2 monitor per protocol -CXR showed no acute process GI: Moderate protein calorie malnutrition -Failed bedside swallow evaluation initially -ST evaluation cleared for pured diet -24 hours + 3845 mL -PPI -d/c NGT : Acute kidney injury likely secondary to vasomotor nephropathy may also have underlying CKD, rhabdomyolysis, hypokalemia, hypophosphatemia -Nephrology consulted, appreciate recommendations -HD per nephro -Monitor intake and output -Renally dose medications -Avoid nephrotoxic medications -FeNa 1.2 indicating intrinsic cause for renal failure -Renal ultrasound slightly atrophic left kidney, no hydronephrosis, masses or stones -We will hold DELFIN/ARB -MIVF -Trend BMP and CK ID: Sepsis (POA), resolved -Presented with lactic acidosis, leukocytosis, hypotension, pyuria on UA -Stopped abx (rocephin) -f/u blood culture, urine culture -UA with some pyuria -Monitor WBC and temperature curve Endo: DKA (resolved), h/o DM -Presented with venous pH 7.116, anion gap 35, blood glucose 1447 -s/p DKA protocol -S/p insulin drip -Transitioned to SSI and long-acting insulin -Accu-Cheks ACHS -Avoid hypoglycemia -Hemoglobin A1c 12.5 Heme: Leukocytosis (resolved), thrombocytopenia (worsening) -Trend CBC -Transfuse hemoglobin less than 7 -SCDs to BLE while in bed Subjective Date of service: 03/08/22 Principal diagnosis: ARF Objective - Constitutional Vitals: Vital Signs - 12hr 03/08/22 03/08/22 03/08/22 06:10 07:40 11:23 Temperature 98.8 F 97.9 F Pulse Rate 91 H Respiratory 20 20 Rate Blood Pressure 170/75 161/73 O2 Sat by Pulse 96 96 Oximetry - Labs CBC & Chem 7: 03/07/22 07:10 03/07/22 07:10 Labs: Abnormal lab results 03/07/22 03/07/22 03/08/22 Range/Units 17:34 22:52 05:33 POC Glucose 178 H 188 H 120 H (70-105) mg/dL HEART Score - HEART Score Troponin: Troponin T 0.014 ng/mL (0.00-0.029) 02/28/22 15:27
[2022-03-08] MEDS: METOPROLOL TARTRATE 50 MG TAB PO SCH ×2 (16:23→22:04)
[2022-03-08] MEDS: traZODone 100 MG TAB PO SCH (22:03)
[2022-03-08] MEDS: INSULIN GLARGINE 100 UNITS/ML SUB-Q SCH (22:04)
[2022-03-08] MEDS: MIRTAZAPINE 15 MG TAB PO SCH (22:05)
[2022-03-09] MEDS: INSULIN REGULAR, HUMAN 100 UNITS/1 ML SUB-Q SCH ×2 (07:30→11:44)
[2022-03-09] MEDS: hydrALAZINE 100 MG TAB PO SCH (08:00)
[2022-03-09] MEDS: MIDAZOLAM 2 MG/2 ML INJ ONE (08:08)
[2022-03-09] MEDS: amLODIPine 10 MG TAB PO SCH (09:06)
[2022-03-09] MEDS: METOPROLOL TARTRATE 50 MG TAB PO SCH (09:07)
[2022-03-09] MEDS: ASPIRIN 81 MG TAB CHEW PO SCH (09:07)
[2022-03-09] MEDS: LOSARTAN 50 MG TAB PO SCH (09:07)
[2022-03-09] MEDS: FAMOTIDINE 20 MG TAB PO SCH (09:08)
[2022-03-09 09:14] LABS: Calcium 7.4 mg/dL (8.4-10.2)
--- NOTE | 2022-03-09 09:28 | Progress Note ---
Assessment and Plan Acute Renal Failure likely secondary to Prerenal etiology vs ATN secondary to Hypotension, Sepsis, Rhabdo and Dehydration in the setting of Metformin and ARB, may also have underlying CKD from DM and Hypertension Altered Mental Status DKA Diabetes Mellitus Hypertension Hypernatremia, Resolved Leukocytosis/Sepsis Rhabdomyolysis Hypokalemia Plan: HD today for clearance and volume removal Renally dose medications Obtain daily weights Strict I/O's daily Assess dialysis needs daily Consulted case management for outpatient HD placement to [facility], patient has been accepted at [facility] on ,, schedule with a chair time of 9:45 a.m when ready for discharge Subjective Date of service: 03/09/22 Principal diagnosis: ARF Interval history: no overnight events Objective - Vital Signs Vital signs: Vital Signs - 12hr 03/08/22 03/08/22 03/09/22 21:50 22:04 05:11 Temperature 98.9 F 97.9 F Pulse Rate 74 74 86 Respiratory 22 22 Rate Blood Pressure 135/68 135/68 145/71 O2 Sat by Pulse 97 95 Oximetry - Lab 03/07/22 07:10 03/09/22 07:42 Most recent lab results ABG pH 7.211 pH Units (7.350-7.450) L 02/28/22 12:18 ABG pCO2 30.8 mm Hg 02/28/22 12:18 ABG pO2 267.8 mm Hg (80.0-90.0) H 02/28/22 12:18 ABG HCO3 12.1 mmol/L (20.0-26.0) L 02/28/22 12:18 ABG O2 Saturation 99.4 % (95.0-99.0) H 02/28/22 12:18 Calcium 7.4 mg/dL (8.4-10.2) L 03/09/22 07:42 Phosphorus 4.60 mg/dL (2.5-4.5) H D 03/06/22 10:57 Magnesium 2.80 mg/dL (1.7-2.3) H 03/06/22 10:57 Urine Creatinine 185.1 mg/dL (0.1-20.0) H 03/01/22 15:45 Urine Creatinine 187.2 mg/dL (0.1-20.0) H 03/01/22 15:45 Urine Sodium 68 mmol/L 03/01/22 15:45 Urine Total Protein 580 mg/dL (5-11.8) H 03/01/22 15:45 Medications & Allergies - Medications Allergies/Adverse Reactions: Allergies No Known Allergies Allergy (Verified 02/28/22 11:01) Home Medications: Home Medications Medication Instructions Recorded Confirmed Last Taken Type Aspirin [Aspirin BABY CHEW TAB] 81 mg PO QDAY 10/06/19 02/28/22 Unknown History Atorvastatin [Lipitor] 40 mg PO QDAY 10/06/19 02/28/22 Unknown History Losartan [Cozaar] 100 mg PO QDAY 02/28/22 02/28/22 Unknown History Mirtazapine [Remeron] 15 mg PO DAILY 02/28/22 02/28/22 Unknown History Trazodone HCl [traZODone] 300 mg PO QHS 02/28/22 02/28/22 Unknown History Insulin Glargine [Lantus VIAL] 30 units SUB-Q QHS 30 Days 03/09/22 Unknown Rx Insulin Regular, Human [HumuLIN R] 0 units SUB-Q ACHS 30 Days 03/09/22 Unknown Rx Metoprolol [Lopressor TAB] 50 mg PO BID #60 tablet 03/09/22 Unknown Rx amLODIPine 10 mg PO QDAY #30 tablet 03/09/22 Unknown Rx hydrALAZINE [Apresoline TAB] 100 mg PO TID #90 tab 03/09/22 Unknown Rx Active Medications: Generic Name Dose Route Start Last Admin Trade Name Freq PRN Reason Stop Dose Admin Acetaminophen 650 mg 02/28/22 21:22 03/04/22 09:28 Acetaminophen 325 Mg Tab PO 650 mg Q4H PRN Administration Pain MILD(1-3)/Fever >100.5/SHIN Amlodipine Besylate 10 mg 03/05/22 10:00 03/09/22 09:06 Amlodipine 10 Mg Tab PO 10 mg QDAY JOB Administration Aspirin 81 mg 03/02/22 10:00 03/09/22 09:07 Aspirin 81 Mg Tab Chew PO 81 mg QDAY JOB Administration Atorvastatin Calcium 40 mg 03/02/22 10:00 03/09/22 09:07 Atorvastatin 40 Mg Tab PO 40 mg QDAY JOB Administration Dextrose 50 ml 03/01/22 17:32 Dextrose 50% In Water (25gm) 50 Ml Syringe IV Q30MIN PRN Hypoglycemia Protocol Famotidine 20 mg 03/05/22 10:00 03/09/22 09:08 Famotidine 20 Mg Tab PO 20 mg QDAY [facility] Administration Hydralazine HCl 10 mg 03/01/22 15:00 03/03/22 04:04 Hydralazine 20 Mg/1 Ml Inj IV 10 mg Q4HR PRN Administration Hypertension Hydralazine HCl 100 mg 03/05/22 08:00 03/09/22 08:00 Hydralazine 100 Mg Tab PO 100 mg TID [facility] Administration Sodium Chloride 100 mls @ 999 mls/hr 03/07/22 08:42 Nacl 0.9% IV [place] PRN Hypotension Insulin Glargine 30 units 03/04/22 22:00 03/08/22 22:04 Insulin Glargine 100 Units/Ml SUB-Q Not Given QHS [facility] Insulin Human Regular 0 units 03/07/22 09:00 03/09/22 07:30 Insulin Regular, Human 100 Units/1 Ml SUB-Q Not Given ACHS [facility] Protocol Labetalol HCl 10 mg 03/05/22 07:11 Labetalol 20 Mg/4 Ml Inj IV Q4HR PRN Hypertension Lidocaine HCl 15 ml 03/04/22 14:00 03/08/22 22:03 Magic Mouthwash 30ml PO Not Given TID [facility] Losartan Potassium 100 mg 03/08/22 10:00 03/09/22 09:07 Losartan 50 Mg Tab PO 100 mg QDAY [facility] Administration Metoclopramide HCl 5 mg 02/28/22 21:22 Metoclopramide 10 Mg/2 Ml Inj IV Q6H PRN Nausea And Vomiting Metoprolol Tartrate 50 mg 03/08/22 16:00 03/09/22 09:07 Metoprolol Tartrate 50 Mg Tab PO 50 mg BID [facility] Administration Mirtazapine 15 mg 03/05/22 22:00 03/08/22 22:05 Mirtazapine 15 Mg Tab PO 15 mg QHS [facility] Administration Ondansetron HCl 4 mg 02/28/22 21:22 03/04/22 08:17 Ondansetron 4 Mg/2 Ml Inj IV 4 mg Q3H PRN Administration Nausea And Vomiting Oxycodone/Acetaminophen 1 tab 02/28/22 21:22 Oxycodone /Acetaminophen 5-325mg Tab PO Q6H PRN Pain, Moderate (4-6) Sodium Chloride 10 ml 02/28/22 17:08 Sodium Chloride 0.9% 10 Ml Flush Syringe IV PRN PRN LINE FLUSH Sodium Chloride 10 ml 02/28/22 22:00 03/09/22 09:09 Sodium Chloride 0.9% 10 Ml Flush Syringe IV 10 ml BID JOB Administration Trazodone HCl 300 mg 03/05/22 22:00 03/08/22 22:03 Trazodone 100 Mg Tab PO 300 mg QHS JOB Administration
--- NOTE | 2022-03-09 12:10 | Discharge Summary ---
Providers - Providers Date of Admission: 02/28/22 17:08 Date of discharge: 03/09/22 Attending physician: ELSI LASSITER 02/28/22 16:23 Consult to Physician [CONS] Urgent Comment: Consulting Provider: SETH MONTERO Physician Instructions: Reason For Exam: acute renal failure, rhabdo, dka 03/01/22 17:40 Consult to Dietitian/Nutrition [CONS] Routine Physician Instructions: Reason For Exam: Reason for Consult: Write/Manage Tube Feeding Speech Therapy Evaluation and Treat [CONS] Routine Reason For Exam: failed bedside swallow eval 03/02/22 11:52 Consult to Interventional Radiology [CONS] Routine Consulting Provider: TRINY ACOSTA Reason For Exam: perm-catheter placement Place consult to:: dr acosta Notified:: yes Comment:: noted/ gloria 03/05/22 10:06 Physical Therapy Evaluation and Treat [CONS] Routine Comment: Reason For Exam: debility 03/05/22 10:07 Occupational Therapy Evaluate and Treat [CONS] Routine Comment: Reason For Exam: debility 03/07/22 09:06 Consult to Physician [CONS] Routine Comment: Consulting Provider: TRINY ACOSTA Physician Instructions: Reason For Exam: permcath placement 03/07/22 12:52 Consult to Case Management [CONS] Routine Services Needed at Discharge: Other Notified:: CM Comment:: Outpatient hemodialysis placement to [facility] Additional Physician Instructions: Please arrange outpatient hemodialysis placement to [facility] located at [address] [place] [address], [id number] Primary care physician: ROXANA LOMAX Hospitalization Condition: Stable Disposition: 06 HOME HEALTH CARE SERVICE Time spent for discharge: 34 minutes Core Measure Documentation - Palliative Care Palliative Care/ Comfort Measures: Not Applicable - Core Measures Any of the following diagnoses?: none Exam - Constitutional Vitals: Temp Pulse Resp BP Pulse Ox 97.5 F L 85 16 144/66 97 03/09/22 09:54 03/09/22 10:30 03/09/22 09:54 03/09/22 10:30 03/09/22 09:54 Plan Activity: fall precautions Diet: diabetic, renal Special Instructions: restrict fluid intake to (1.2L per day) Follow up with: ROXANA LOMAX MD [Primary Care Provider] - 3-5 Days Prescriptions: Insulin Glargine [Lantus VIAL] 30 units SUB-Q QHS 30 Days amLODIPine 10 mg PO QDAY #30 tablet hydrALAZINE [Apresoline TAB] 100 mg PO TID #90 tab Insulin Regular, Human [HumuLIN R] 0 units SUB-Q ACHS 30 Days Metoprolol [Lopressor TAB] 50 mg PO BID #60 tablet
[2022-03-09 13:12] VITALS: BP 128/74
== END 2022-03-09 14:10 | disposition home or self-care (01) | DRG 871 ==
LOC: ED 10:56 → CC1 17:08 → IMCU 03-02 17:10 → 3A 03-05 22:56
PROVIDERS: ADMIT Internal Medicine; ATTEND Internal Medicine
PROC: 4A033R1 Measurement of Arterial Saturation, Peripheral, Percutaneous Approach (ICD-10-PCS; principal; 2022-02-28)
PROC: 06HY33Z Insertion of Infusion Device into Lower Vein, Percutaneous Approach (ICD-10-PCS; 2022-02-28)
PROC: 5A1D70Z Performance of Urinary Filtration, Intermittent, Less than 6 Hours Per Day (ICD-10-PCS; 2022-03-02)
PROC: 02H633Z Insertion of Infusion Device into Right Atrium, Percutaneous Approach (ICD-10-PCS; 2022-03-02)
PROC: B5181ZA Fluoroscopy of Superior Vena Cava using Low Osmolar Contrast, Guidance (ICD-10-PCS; 2022-03-02)
PROC: B548ZZA Ultrasonography of Superior Vena Cava, Guidance (ICD-10-PCS; 2022-03-02)
PROC: 5A1D70Z Performance of Urinary Filtration, Intermittent, Less than 6 Hours Per Day (ICD-10-PCS; 2022-03-03)
PROC: 5A1D70Z Performance of Urinary Filtration, Intermittent, Less than 6 Hours Per Day (ICD-10-PCS; 2022-03-04)
PROC: 5A1D70Z Performance of Urinary Filtration, Intermittent, Less than 6 Hours Per Day (ICD-10-PCS; 2022-03-07)
PROC: 0JH63XZ Insertion of Tunneled Vascular Access Device into Chest Subcutaneous Tissue and Fascia, Percutaneous Approach (ICD-10-PCS; 2022-03-08)
PROC: 02H633Z Insertion of Infusion Device into Right Atrium, Percutaneous Approach (ICD-10-PCS; 2022-03-08)
PROC: 5A1D70Z Performance of Urinary Filtration, Intermittent, Less than 6 Hours Per Day (ICD-10-PCS; 2022-03-09)
DX: A41.9 Sepsis, unspecified organism (principal); E11.10 Type 2 diabetes mellitus with ketoacidosis without coma; N17.0 Acute kidney failure with tubular necrosis; G93.41 Metabolic encephalopathy; J96.01 Acute respiratory failure with hypoxia; M62.82 Rhabdomyolysis; E87.0 Hyperosmolality and hypernatremia; E44.0 Moderate protein-calorie malnutrition; Z68.44 Body mass index [BMI] 60.0-69.9, adult; N30.00 Acute cystitis without hematuria; E86.0 Dehydration; Z20.822 Contact with and (suspected) exposure to COVID-19; E78.5 Hyperlipidemia, unspecified; D75.1 Secondary polycythemia; I12.9 Hypertensive chronic kidney disease with stage 1 through stage 4 chronic kidney disease, or unspecified chronic kidney disease; E11.22 Type 2 diabetes mellitus with diabetic chronic kidney disease; N18.9 Chronic kidney disease, unspecified; D69.6 Thrombocytopenia, unspecified; E87.6 Hypokalemia; Z89.511 Acquired absence of right leg below knee; Z89.612 Acquired absence of left leg above knee; Z87.891 Personal history of nicotine dependence; Z79.82 Long term (current) use of aspirin; Z79.4 Long term (current) use of insulin; Z82.49 Family history of ischemic heart disease and other diseases of the circulatory system
CPT/HCPCS: 36415; 36556; 36558; 70450; 71045; 72125; 74018; 76770; 77001; 80048; 80053; 80074; 80202; 81001; 82140; 82550; 82570; 82803; 82805; 82947; 82962; 83036; 83520; 83735; 84100; 84156; 84165; 84300; 84311; 84439; 84443; 84484; 84520; 85007; 85025; 85027; 85610; 85730; 86021; 86038; 86160; 87040; 87086; 89050; 93005; 94760; 99291; 99292; G0378; J3480; J3490; J7070; J7510; Q9967; C1750; C1752; J0360; J0696; J1644; J1815; J2250; J2405; J2997; J3010; J3370; J3475; J7030; J7040; J7120; U0003